=== PATIENT | male | born 1945 | race Caucasian/White ===

== ENCOUNTER → 2023-05-17 10:36 | Outpatient (REF) | payer OTHER, SELFPAY | LOC: WOUND 10:36 | PROVIDERS: ATTENDING PHYSICIAN Surgery; REFERRING PHYSICIAN Family Medicine | DX: L97.322 Non-pressure chronic ulcer of left ankle with fat layer exposed (principal); F17.210 Nicotine dependence, cigarettes, uncomplicated; I87.2 Venous insufficiency (chronic) (peripheral); I25.10 Atherosclerotic heart disease of native coronary artery without angina pectoris; G45.9 Transient cerebral ischemic attack, unspecified; J44.9 Chronic obstructive pulmonary disease, unspecified | CPT/HCPCS: 11042; 29581 ==

== ENCOUNTER → 2023-12-29 13:01 | Outpatient (REF) | payer OTHER, SELFPAY | LOC: HWRAD 13:01 | PROVIDERS: ATTENDING PHYSICIAN Internal Medicine Critical Care Medicine; FAMILY PHYSICIAN Family Medicine | DX: R93.89 Abnormal findings on diagnostic imaging of other specified body structures (principal) | CPT/HCPCS: 71250 ==

== ENCOUNTER → 2024-01-20 17:03 | Outpatient (REF) | payer OTHER, SELFPAY | LOC: HWRAD 17:03 | PROVIDERS: ATTENDING PHYSICIAN Family Medicine | DX: R07.82 Intercostal pain (principal); J44.9 Chronic obstructive pulmonary disease, unspecified; J42 Unspecified chronic bronchitis | CPT/HCPCS: 71046 ==

== ENCOUNTER → 2024-03-06 08:05 | Outpatient (REF) | payer OTHER, SELFPAY | LOC: RAD 08:05 | PROVIDERS: ATTENDING PHYSICIAN Surgery Vascular Surgery; FAMILY PHYSICIAN Family Medicine | DX: I71.43 Infrarenal abdominal aortic aneurysm, without rupture (principal); I77.9 Disorder of arteries and arterioles, unspecified | CPT/HCPCS: 76770; 93922; 93925 ==

== ENCOUNTER → 2024-03-15 10:33 | Outpatient (REF) | payer OTHER, SELFPAY ==
[2024-03-15 13:03] LABS: Blood Urea Nitrogen 24 mg/dl (9-20); Calcium 9.8 mg/dl (8.4-10.2); Carbon Dioxide 24 mmol/L (22-30); Chloride 96 mmol/L (98-107); Glucose 109 mg/dl (70-99); Potassium 4.7 mmol/L (3.5-5.1); Sodium 133 mmol/L (135-145); eGFR > 60.00
== END ==
LOC: RAD 10:33
PROVIDERS: ATTENDING PHYSICIAN Surgery Vascular Surgery; FAMILY PHYSICIAN Family Medicine; REFERRING PHYSICIAN Nurse Practitioner
DX: M54.6 Pain in thoracic spine (principal); I71.40 Abdominal aortic aneurysm, without rupture, unspecified
CPT/HCPCS: 36415; 72072; 80048

== ENCOUNTER → 2024-03-20 12:55 | Outpatient (REF) | payer OTHER, SELFPAY | LOC: RAD 12:55 | PROVIDERS: ATTENDING PHYSICIAN Surgery Vascular Surgery; FAMILY PHYSICIAN Family Medicine | DX: I71.40 Abdominal aortic aneurysm, without rupture, unspecified (principal) | CPT/HCPCS: 74174; Q9967 ==

== ENCOUNTER → 2024-04-30 13:02 | Outpatient (REF) | payer OTHER, SELFPAY ==
--- NOTE | 2024-04-30 13:45 | CARDSERVLU ---
Echocardiogram with Lumason completed after protocol screening completed. Allergies verified.
Patent IV site: ___Rt AC__
IV site flushed with 0.9% NaCl pre and post administration.
Diluted bolus method utilized to enhance visualization of ventricular naylor.
Total volume given: _4.0___ mL
Patient tolerated all procedures well without complications.
#20 mónica placed Left AC. Lumason given and INT d/c'd. dsg applied and pressure held. No bleeding noted.
== END ==
LOC: RCS 13:02
PROVIDERS: ATTENDING PHYSICIAN Internal Medicine Cardiovascular Disease; FAMILY PHYSICIAN Family Medicine
DX: Z01.810 Encounter for preprocedural cardiovascular examination (principal)
CPT/HCPCS: 93306; Q9950

== ENCOUNTER 2024-05-07 06:10 | Inpatient (IN) | payer OTHER, SELFPAY ==
[2024-05-02 09:22] VITALS: BMI 25.0
[2024-05-02 10:52] LABS: % Basophils 0.4 % (0-2); % Eosinophils 1.4 % (0-6); % Immature Granulocytes 1.1 % (0-0.5); % Lymphocytes 22.4 % (20.5-51.1); % Monocytes 6.5 % (1.7-9.3); % Neutrophils 68.2 % (42.2-75.2); Absolute Eosinophils 0.1 10^3/uL (0-0.7); Absolute Immature Granulocytes 0.1 10^3/uL (0-0.05); Absolute Lymphocytes 2.2 10^3/uL (1.2-3.4); Absolute Monocytes 0.6 10^3/uL (0.1-0.6); Absolute Neutrophils 6.7 10^3/uL (1.4-6.5); Hematocrit 45.5 % (39.0-52.0); Hemoglobin 15.3 g/dL (13.0-18.0); Mean Corp Hgb Conc. 33.6 g/dL (33.0-37.0); Mean Corpuscular Hgb 30.7 pg (27.0-31.0); Mean Corpuscular Volume 91.4 fL (80.0-94.0); Mean Platelet Volume 10.2 fL (7.4-10.4); Nucleated Red Blood Cells % 0 % (-); Platelet Count 147 10^3/uL (130-400); Red Blood Cell Count 4.98 10^6/uL (4.70-6.10); Red Cell Dist. Width 14.4 % (11.5-14.5); White Blood Cell Count 9.9 10^3/uL (4.8-10.8)
[2024-05-02 11:10] LABS: INR 1.02; PT 13.4 Sec (11.4-14.6)
[2024-05-02 11:11] LABS: APTT 31.6 Sec (23.4-35.0)
[2024-05-02 11:46] LABS: Blood Urea Nitrogen 22 mg/dl (9-20); Calcium 9.3 mg/dl (8.4-10.2); Carbon Dioxide 26 mmol/L (22-30); Chloride 101 mmol/L (98-107); Estimated Creatinine Clearance 59 ml/min; Glucose 109 mg/dl (70-99); Potassium 3.6 mmol/L (3.5-5.1); Sodium 137 mmol/L (135-145); eGFR > 60.00
[2024-05-07] VITALS (25 sets, daily range): BP systolic 102–163; BP diastolic 66–106; BMI 24.5
[2024-05-07] MEDS: PERIDEX 0.12% ORAL RINSE 15 ML PO (07:10)
[2024-05-07] MEDS: BACTROBAN NASAL 1 GRAM NASAL (07:10)
[2024-05-07] MEDS: NSS 500 IV (07:15)
--- NOTE | 2024-05-07 07:46 | W.SUR.PREOP ---
Pre-Operative Surgical Note
-
I have examined this patient prior to the performance of the scheduled procedure.
The patient's condition is unchanged from the time of the current History and
Physical and the patient is able to undergo the scheduled procedure.
[2024-05-07 08:56] LABS: ACT-LR - POC 295 Seconds (116-155)
[2024-05-07 09:52] LABS: ACT-LR - POC 269 Seconds (116-155)
[2024-05-07 10:00] LABS: Glucose - Point of Care 114 mg/dl (70-99)
--- NOTE | 2024-05-07 11:23 | CONS.URO ---
Consultation
-
Date/Time Consultation Performed: 05/07/24 1600
Performing Provider: Evan
Reason for Consultation: difficult Rodriguez placement with subsequent hematuria
Medical History
History of Present Illness
s/p FEVAR for AAA today; a Rodriguez placed pre-op 'was a difficult insertion . . . now blood-tinged'
09/[address] Singh
patient/ report no voiding bother pre-admission
Past Medical History
Past Medical History: Other (Cyst Of Liver. Pain Lower Back. Osteoporosis Unsp. Hyperlipidemia. High cholesterol. Colon polyps. Hypertension. Depression. Restless Leg. Pneumonia. Scoliosis.
Broken vertebrae. AAA. PD)
Past Surgical History: Other (Implanted pain management device 06/2017 turp back surgery GVM L1-L2 03/2021 Vertebroplasty 02/23/2024 cardiac ablation - Cecilio tejeda 2013)
Allergies/Home Medications
Allergies
Allergy/AdvReac Type Severity Reaction Status Date / Time
mold Allergy sinus Verified 05/07/24 07:07
congestion
Home Medications
�Medication �Instructions �Recorded �Confirmed �Type
atorvastatin 10 mg tablet 10 mg PO QPM High cholesterol 12/03/20 05/07/24 History
lisinopril 10 mg tablet 10 mg PO DAILY Blood pressure 12/03/20 05/07/24 History
omeprazole 20 mg capsule,delayed 20 mg PO DAILY Gastrointestinal 12/03/20 05/07/24 History
release issue
fluticasone fur. 100 mcg-umeclid 1 inh inhalation R DAILY 07/09/22 05/07/24 History
62.5 mcg-vilant 25 mcg Lung/breathing issues ##0
inhalat.powder (Trelegy Ellipta)
oxycodone-acetaminophen 10 mg-325 1 tab PO Q6HPRN PRN SEVERE PAIN 07/09/22 05/07/24 History
mg tablet
therapeutic multivitamin 1 tab PO DAILY Supplement ##0 07/09/22 05/07/24 History
albuterol sulfate 2.5 mg/3 mL 2.5 mg inhalation Q6H PRN SOB 09/20/22 05/07/24 History
(0.083 %) solution for nebulization
carbidopa ER 25 mg-levodopa 100 mg 1 tab PO DAILY Neurological 09/20/22 05/07/24 History
tablet,extended release Condition
carbidopa ER 25 mg-levodopa 100 mg 2 tab PO HS Neurological Condition 09/20/22 05/07/24 History
tablet,extended release
fluticasone propionate 50 2 spray intranasal DAILY Allergies 09/20/22 05/07/24 History
mcg/actuation nasal
spray,suspension
levalbuterol tartrate 45 1 puff inhalation R Q4HPRN PRN SOB 09/20/22 05/07/24 History
mcg/actuation aerosol inhaler
guaifenesin 600 mg tablet, 600 mg PO Q12 #30 tabs 09/24/22 05/07/24 Rx
extended release 12 hr (Mucinex)
Physical Exam
Vital Signs
Vital Signs
Temp Pulse Resp BP Pulse Ox
97.8 F 91 23 163/106 97
05/07/24 06:19 05/07/24 06:19 05/07/24 06:19 05/07/24 06:19 05/07/24 06:19
Physical Exam
adult male supine in bed
Genito-urinary: Rodriguez Catheter (punch-colored urine)
Assessment / Plan
-
Prostate enlargement s/p TUVP ~ 12 years ago --> difficulty Rodriguez implies some prostatic regrowth; hematuria is not unexpected
Rec: keep Rodriguez overnight
Data Reviewed
-
Old Records: Reviewed
--- NOTE | 2024-05-07 11:33 | CON.INTV ---
Consultation
Consultation Request
Date/Time Consultation Requested: 05/07/2024 - 1043
Date/Time Consultation Performed: 05/07/2024 - 1118
Requesting Provider: SHYANNE Ashton
Performing Provider: Pete Willingham MD
Reason for Consultation: post-op management
Medical History
-
Chief Complaint: Elective FEVAR
History of Present Illness:
78-year-old male active tobacco smoker with a past medical history of COPD, history of pneumonia, history of lung nodules, TOBY on CPAP, hyperlipidemia, hypertension, colonic polyps, RLS and chronic LBP who presents with elective FEVAR of known
infrarenal AAA. Patient known to vascular surgery with last office visit on 03/28/2024 Dr. Rodriguez. Discussion held and CT angiogram shows a juxtarenal abdominal aortic aneurysm and he is not a good candidate for open aortic aneurysm surgery.
Fenestrated stent graft repair was discussed and risks and benefits were also reviewed in detail. Patient has agreed to fenestrated stent graft, which he obtained today (05/07/2024). I saw the patient after he came to the ICU and he was in no acute
distress, with BP 119/75 on Cardene at 10mg/hr, heart rate 97, saturating 96% on facemask at 6 L/min. Patient still sleepy from anesthesia but is answering my questions appropriately. He denies shortness of breath, abdominal pain, chest pain.
PMHx: Chronic lower back pain, osteoporosis, hyperlipidemia, colonic polyps, hypertension, depression, restless leg syndrome, history of pneumonia, scoliosis, history of broken vertebrae, COPD, TOBY on CPAP, lung nodules tobacco use disorder
PSHx: Implanted pain management device (June 2017), TURP, back surgery, vertebroplasty
Past Medical History
Past Medical History: Other (Above as per HPI)
Past Surgical History: Other (Above as per HPI)
Social History
Tobacco: Smoker (0.5-1 PPD; was smoking 2 PPD until November 2020, and has a 90-[id number]-xfym history)
Drug: None
Family History
Family History: Cancer (Father: Leukemia) and Diabetes (Mother)
Allergies / Home Medications
Allergies
Allergy/AdvReac Type Severity Reaction Status Date / Time
mold Allergy sinus Verified 05/07/24 07:07
congestion
Home Medications
�Medication �Instructions �Recorded �Confirmed �Last Taken �Type
atorvastatin 10 mg tablet 10 mg PO QPM High cholesterol 12/03/20 05/07/24 05/06/24 17:00 History
lisinopril 10 mg tablet 10 mg PO DAILY Blood pressure 12/03/20 05/07/24 05/06/24 08:00 History
omeprazole 20 mg capsule,delayed 20 mg PO DAILY Gastrointestinal 12/03/20 05/07/24 05/06/24 08:00 History
release issue
fluticasone fur. 100 mcg-umeclid 1 inh inhalation R DAILY 07/09/22 05/07/24 05/06/24 08:00 History
62.5 mcg-vilant 25 mcg Lung/breathing issues ##0
inhalat.powder (Trelegy Ellipta)
oxycodone-acetaminophen 10 mg-325 1 tab PO Q6HPRN PRN SEVERE PAIN 07/09/22 05/07/24 05/06/24 12:00 History
mg tablet
therapeutic multivitamin 1 tab PO DAILY Supplement ##0 07/09/22 05/07/24 2 Weeks Ago History
~04/23/24
albuterol sulfate 2.5 mg/3 mL 2.5 mg inhalation Q6H PRN SOB 09/20/22 05/07/24 05/06/24 12:00 History
(0.083 %) solution for nebulization
carbidopa ER 25 mg-levodopa 100 mg 1 tab PO DAILY Neurological 09/20/22 05/07/24 05/06/24 07:00 History
tablet,extended release Condition
carbidopa ER 25 mg-levodopa 100 mg 2 tab PO HS Neurological Condition 09/20/22 05/07/24 05/05/24 20:00 History
tablet,extended release
fluticasone propionate 50 2 spray intranasal DAILY Allergies 09/20/22 05/07/24 2 Weeks Ago History
mcg/actuation nasal ~04/23/24
spray,suspension
levalbuterol tartrate 45 1 puff inhalation R Q4HPRN PRN SOB 09/20/22 05/07/24 05/06/24 20:00 History
mcg/actuation aerosol inhaler
guaifenesin 600 mg tablet, 600 mg PO Q12 #30 tabs 09/24/22 05/07/24 05/06/24 09:00 Rx
extended release 12 hr (Mucinex)
Review of Systems
-
History Source: Patient
All other systems: Negative unless noted
Vitals / Labs / Diagnostic Testing
Vital Signs
Temp Pulse Resp BP Pulse Ox
97.8 F 96 19 112/71 96
05/07/24 12:51 05/07/24 13:00 05/07/24 13:00 05/07/24 13:00 05/07/24 13:05
Lab Data
05/07/24 11:24
05/07/24 11:23
Laboratory Results
05/07/24
11:23
PT 15.2 H
INR 1.22
APTT 39.0 H
Diagnostic Testing:
Physical Exam
-
HEENT: Normocephalic and Anicteric
Cardiovascular: S1/S2 and Peripheral Edema (Negative)
Respiratory: Wheeze (Negative), Rhonchi (Negative) and Other (Coarse BS heard bilaterally (R>L))
GI: Soft, Non Distended, Non Tender and Normal Bowel Sounds
Neurology: Other (Sleepy but answering questions appropriately)
Skin: Warm and Dry
General: Respiratory Distress (Negative), Comfortable and Chills (Negative)
Assessment
-
Assessment: 78-year-old male active tobacco smoker with a past medical history of COPD, history of pneumonia, history of lung nodules, TOBY on CPAP, hyperlipidemia, hypertension, colonic polyps, RLS and chronic LBP who presents with elective FEVAR
of known infrarenal AAA. Patient known to vascular surgery with last office visit on 03/28/2024 Dr. Rodriguez. Discussion held and CT angiogram shows a juxtarenal abdominal aortic aneurysm and he is not a good candidate for open aortic aneurysm
surgery. Fenestrated stent graft repair was discussed and risks and benefits were also reviewed in detail. Patient has agreed to fenestrated stent graft, which he obtained today (05/07/2024). I saw the patient after he came to the ICU and he was
in no acute distress, with BP 119/75 on Cardene at 10mg/hr, heart rate 97, saturating 96% on facemask at 6 L/min. Patient still sleepy from anesthesia but is answering my questions appropriately. He denies shortness of breath, abdominal pain,
chest pain.
Chronic conditions [employer]AGHETTI [employer]: Chronic lower back pain, osteoporosis, hyperlipidemia, colonic polyps, hypertension, depression, restless leg syndrome, history of pneumonia, scoliosis, history of broken vertebrae, COPD, TOBY on CPAP, lung nodules tobacco
use disorder
Impression:
#Infrarenal abdominal aortic aneurysm without rupture s/p FEVAR (POD#0)
#Leukocytosis
#Thrombocytopenia (chronic with baseline ranging between 96�273 over the last 15-16 years)
#Tobacco Use Disorder
#COPD - severe severity per spirometry from 11/09/2023 (post-BD FEV1: 0.94L/39% predicted)
#Mild restrictive lung disease with post-bronchodilator FVC: 2.17 L/64% predicted
Plan:
Postoperative surgical intensive care unit monitoring
Supplemental oxygen as needed to keep SpO2 >88% and <96%
Wean O2 as tolerated to maintain goal SpO2 as above
prn nebulized bronchodilators
Incentive spirometry
Aspiration precautions
Neuro and vascular checks per protocol
Continue cardene gtt with goal MAP 70-100mmHg
Keep MAP>65
Replete electrolytes with K>4, Mg>2
Maintain euglycemia with goal BG 140-180
Vascular surgery following-correspondence and operative notes reviewed
Incentive spirometer encouraged - 10x per hour for at least 4 hours a day
DVT prophylaxis
Early nutrition
Early mobilization
Critical care statement: A total of 41 minutes of critical care time was provided for this patient today. This includes management of unstable vital signs, evaluation of the patient at bedside, reviewing the patient's pertinent medical records
including radiographs, microbiology, laboratory evaluations, and discussion with primary team, consultants, pharmacy, nutrition, physical therapy, case management, charge nurse, critical care nursing, and respiratory therapy.
[2024-05-07 11:47] LABS: Hematocrit 39.8 % (39.0-52.0); Hemoglobin 13.7 g/dL (13.0-18.0); Mean Corp Hgb Conc. 34.4 g/dL (33.0-37.0); Mean Corpuscular Hgb 31.4 pg (27.0-31.0); Mean Corpuscular Volume 91.1 fL (80.0-94.0); Mean Platelet Volume 9.8 fL (7.4-10.4); Platelet Count 113 10^3/uL (130-400); Red Blood Cell Count 4.37 10^6/uL (4.70-6.10); White Blood Cell Count 12.9 10^3/uL (4.8-10.8)
[2024-05-07 11:49] LABS: INR 1.22; PT 15.2 Sec (11.4-14.6)
[2024-05-07] MEDS: PLAVIX 300 MG PO (11:51)
[2024-05-07] MEDS: ASPIRIN 325 MG PO (11:51)
[2024-05-07 11:52] LABS: Blood Urea Nitrogen 20 mg/dl (9-20); Calcium 8.4 mg/dl (8.4-10.2); Carbon Dioxide 25 mmol/L (22-30); Chloride 106 mmol/L (98-107); Estimated Creatinine Clearance 59 ml/min; Glucose 159 mg/dl (70-99); Sodium 136 mmol/L (135-145); eGFR > 60.00
[2024-05-07] MEDS: CARDENE 200 IV ×2 (12:19→14:17)
[2024-05-07] MEDS: NSS 1000 IV (12:19)
--- NOTE | 2024-05-07 13:07 | PTCARENOTE ---
Addendum entered by Eva Mattson, MERCEDES 05/07/24 15:46:
@1307- bustamante draining bloody urine- unchanged from pacu
Original Note:
pt received from pacu- on 6L simple mask, nsr with bbb on monitor. left radial karlee zeroed and functioning- cardene infusing at 10mg for maintaining systolic 100-165. pt arousable, drowsy at times, answers questions appropriately. doppler pedal and
pt pulses, extremities cool to touch and duskey. bilateral groin sites jolly, c/d/i. left site slightly swollen confirmed with hand turner- bilateral sites both soft to touch. pt denies pain at this time. all safety precautions in place. educated pt and
on restrictions, verbalized understanding. call bolaños within reach.
[2024-05-07] MEDS: PROTONIX 40 MG PO (14:16)
[2024-05-07] MEDS: NICODERM TRANSDERMAL 21 MG TRANSDERM (14:16)
--- NOTE | 2024-05-07 14:16 | OR.RPT ---
Operative Report
Operative Report
Date of Operation: 05/07/2024
Pre Op Diagnosis: Large juxtarenal abdominal aortic aneurysm
Post Op Diagnosis: Large juxtarenal abdominal aortic aneurysm
Procedure:
1.) Percutaneous fenestrated aortic stent graft repair of juxtarenal abdominal aortic aneurysm:
Lesley P-2 -34-107, large fenestration for SMA, bilateral renal artery fenestrations
Lesley D-12 -28-76 distal main body
ZSLE 16-74 RIGHT iliac extension
ZSLE 16-90 LEFT iliac extension)
2.) Bilateral renal artery stenting for fenestrated stent graft repair (6 x 22 iCasts bilaterally, post-dilated proximal to 10 mm bilaterally)
3.) Ultrasound-guided percutaneous femoral access, bilateral
4.) ProGlide closure of bilateral femoral artery access
Surgeon: Samir Rodriguez III, MD
Import/Export Specialist: Seun James MD PGY-2
Anesthesia: General
Complications: None
History and Indications for Procedure: Large juxtarenal abdominal aortic aneurysm.
Procedure in Detail: Jl Conde was correctly identified and placed supine on the operating table. After adequate induction of anesthesia the abdomen, pelvis and bilateral groins were positioned, prepped and draped in the usual sterile fashion.
Preoperative antibiotics were administered. A timeout procedure was performed with the nursing and anesthesia staff confirming the patients identity as well as the nature and laterality of the procedure.
Under ultrasound guidance, bilateral femoral artery 5Fr sheath access was obtained using a micropuncture technique. The arteries were patent on ultrasound. Ultrasound images of the femoral arteries were saved to the medical record. A pre-close
technique was performed bilaterally with 2 offset Proglide closure devices. The sutures were secured and tucked under surgical towels for use at the end of the case. An 11 Tuvaluan sheath was then placed over the Bentson wire on the left and an 8 Fr
sheath was placed over Bentson wire on the right. The patient was systemically heparinized.
From the right femoral access an KMP catheter and Bentson wire were advanced to the proximal descending thoracic aorta. The wire was exchanged out through the catheter for a Lunderquist wire. From the left femoral access a Bentson wire was advanced
into the abdominal aorta. A marker pigtail catheter was then placed for angiographic purposes.
The fenestrated stent graft (Radhaen-P-2 -34-107) was opened and prepped on the back table. The stent was oriented in the proper position under radiographic guidance outside the body. While maintaining the proper orientation, the fenestrated main body
was advanced over the Lunderquist wire in the right femoral access under radiographic guidance and placed in the approximate position relative. An aortogram was performed and identified the origins of the renal arteries bilaterally. These were
marked on the screen. The Zfen main body was carefully unsheathed to the distal end of the stent while maintaining proper positioning with respect to the renal fenestration markers bilaterally.
From the left femoral access a Glidewire and KMP catheter were then used to select the main body of the fenestrated stent graft. The wire was then exchanged out for a Lunderquist wire. An 18 Tuvaluan dry seal sheath was then carefully advanced into
the fenestrated main body. Using a Van Vira 4 catheter and a glidewire the right renal artery was accessed. The glide wire was exchanged out for a Carrington wire. We performed an arteriogram to confirm proper positioning in the renal artery. A 6 Fr
Jerson sheath was advanced through the right renal fenestration and into the chilkat renal artery. A 6 x 22 iCast was then advanced over the wire and placed across the fenestration still inside the sheath.
In order to access the left renal artery through the fenestration we had to use a TourGuide steerable sheath. The TourGuide sheath was brought into position and manipulated properly towards the left renal fenestration. Then, using a Quickcross
catheter and a glide wire the left renal artery was accessed. The glide wire was exchanged out for a Carrington wire. We performed an arteriogram to confirm proper positioning in the renal artery. A 6 x 22 iCast was then advanced over the wire and placed
across the fenestration still inside the sheath.
Following successful cannulation of the renal artery fenestrations I completed the deployment of the fenestrated main body with release of the diameter reducing wires and release of the top cap. The top cap was then carefully recaptured under
radiographic guidance and the delivery system carefully removed over the Lunderquist wire.
A Coda balloon was then inserted on the right and the proximal seal zones of the Zfen main body were profiled with the renal artery sheaths in position. The Coda was then removed over the wire.
Deployment of the iCast stents across the renal fenestrations were completed one at a time as follows: The renal fenestration markers on each side were 'closed' by adjusting the C-arm obliquity. One at a time the sheaths were then retracted to fully
expose the iCast stent. The stent was properly positioned across the fenestration under magnification views and deployed by inflating the balloon to nominal pressure. The sheath was re-advanced into the iCast to 'swallow' the balloon as it was
deflated. A 10 x 2 angioplasty balloon was then positioned in the proximal portion of the iCast. The sheath was retracted and the balloon inflated while maintaining gentle forward pressure to post-dilate the proximal end of the iCast. The sheath was
once again re-advanced into the stent by swallowing the balloon as it deflated. The sheaths were each left in place inside the iCasts while the distal main body was introduced.
The distal main body (Zfen-D-12 -28-76) was prepped on the back table and brought to the field. The device was oriented outside the body under radiographic guidance. Over the Lunderquist wire on the right the distal main body was introduced
carefully under radiographic guidance and positioned properly. The renal artery sheaths and wires bilaterally were then removed one at a time. The distal main body was then deployed down to the contralateral gate.
From the left femoral sheath the contralateral gate was successfully cannulated using a KMP catheter and a glide wire. I confirmed proper position within the gate and main body by advancing a pigtail catheter to the constrained proximal portion of
the distal main body and maintaining forward pressure on the catheter while the constraining mechanism was released. After confirming the gate cannulation I advanced the catheter and wire into the proximal descending thoracic aorta and then
exchanged out for a Lunderquist. A marker pigtail catheter was placed over the Lunderquist and a retrograde sheath arteriogram was performed. I measured the length for the iliac extension and the iliac bifurcation was clearly marked. The pigtail was
removed and over the Lunderquist wire the contralateral limb extension (ZSLE 16-90) was advanced into the proper position with adequate overlap and preservation of the iliac bifurcation. The stent was deployed without difficulty.
I then completed the deployment of the distal main body. The delivery system was carefully removed over the wire under radiographic guidance. A retrograde sheath arteriogram was performed on the ipsilateral side. Over the Lunderquist wire the
ipsilateral limb extension was placed (ZSLE 16-74). Proper overlap was obtained and the stent was deployed without difficulty. The delivery system was then removed over the wire.
A Coda balloon was then advanced from the left. The overlap between the fenestrated main body and the distal main body was profiled with the Coda. The left iliac limb was also profiled including the overlap and the distal seal zones bilaterally.
We had some difficulty advancing the Coda balloon through the right iliac limb and therefore we profiled the right iliac limb, all areas of overlap and the distal seal zone with a 14 mm x 4 cm angioplasty balloon.
A pigtail catheter was placed once again. Stiff wires were removed. A completion aortogram demonstrated an excellent technical result. There was brisk flow through the aortic stent and iliac limbs. The renal arteries/stents were widely patent
bilaterally. The superior mesenteric artery filled briskly and was widely patent. The aneurysm appeared to be excluded and no endoleak was identified. The iliac bifurcations were preserved bilaterally.
The Proglide sutures were secured bilaterally after removing the sheaths and wires. Protamine was administered. Additional pressure was applied to the puncture sites bilaterally for 10 minutes. Hemostasis was achieved bilaterally.
Sterile dressings were applied.
The patient tolerated the procedure well and was taken to the PACU in stable condition.
Attestation: I was present and responsible for the entire case.
Signed:
Samir Rodriguez III, MD
[facility]
[phone] (cell)
[2024-05-07] MEDS: HEPARIN 5000 UNITS SC ×2 (15:39→23:53)
[2024-05-07] MEDS: MORPHINE SULFATE 2 MG IV ×2 (15:39→20:49)
--- NOTE | 2024-05-07 16:32 | PTCARENOTE ---
assessment unchanged. pt more awake, morphine given for pain. oral care provided, pt noted with tachypnea- denies feeling sob, states 'this is my usual work of breathing' sats 94% on 2LNC. respiratory to give breathing treatment. pt able to
reposition self. all safety precautions in place, remains at bedside.
[2024-05-07] MEDS: XOPENEX HFA 45 MCG INHALER 2 PUFF INH (16:52)
[2024-05-07] MEDS: LIPITOR 10 MG PO (17:26)
[2024-05-07] MEDS: ROXICODONE 5 MG PO (18:46)
--- NOTE | 2024-05-07 19:03 | PTCARENOTE ---
Addendum entered by Eva Mattson RN 05/07/24 19:07:
bed alarm on for safety.
Original Note:
assessment unchanged- reeducated about diet, plan of care, and restrictions. remains at the bedside. assisted with turning and repositioning. remains with doppler pedal and pt pulses. nsr with bbb on monitor, remains on nasal cannula.
--- NOTE | 2024-05-07 19:54 | W.IMMPOSTOP ---
Surgical Immed Post Op Note
-
Primary Surgeon: Samir Rodriguez III, MD
Assisting Surgeon: Seun James MD
Pre-op Diagnosis: Infrarenal AAA
Post-op Diagnosis: Infrarenal AAA
Procedure Performed: Fenestrated EVAR
Anesthesia Type: General
Specimen / Cultures: NA
Estimated Blood Loss: 75cc
Complications: None
Operative Findings:
Fenestrated EVAR placed with bilateral renal stents & iliac limbs placed without issue.
[2024-05-07] MEDS: SINEMET CR 25-100 (EXTENDED RELEASE) 2 TABLET PO (20:48)
[2024-05-07] MEDS: CYMBALTA DELAYED RELEASE 60 MG PO (20:49)
--- NOTE | 2024-05-07 23:14 | PTCARENOTE ---
Assumed care of patient. Dual RN neurovascular checks with off going RN. Left groin is slightly more edematous than right groin. No hematoma noted. neuro checks and neurovascular assessment as documented. Pt's AAOx3 and able to make his needs known.
Rt bundle on the monitor. Pt's with left arterial line. Coarse breath sounds. SpO2 at 94% on 2L/O2. Rodriguez catheter is draining bloody urine. Safety measures maintained. Call bolaños and personal belongings are within reach.
[2024-05-08] VITALS (16 sets, daily range): BP systolic 106–138; BP diastolic 66–89; PULSE 95; BMI 24.5
--- NOTE | 2024-05-08 00:41 | PTCARENOTE ---
Patient reassessed. Assessment unchanged from the jeremi.
[2024-05-08 03:28] LABS: Hematocrit 33.4 % (39.0-52.0); Hemoglobin 11.7 g/dL (13.0-18.0); Mean Corpuscular Hgb 30.6 pg (27.0-31.0); Mean Corpuscular Volume 87.4 fL (80.0-94.0); Mean Platelet Volume 10.3 fL (7.4-10.4); Platelet Count 108 10^3/uL (130-400); Red Blood Cell Count 3.82 10^6/uL (4.70-6.10); Red Cell Dist. Width 13.9 % (11.5-14.5); White Blood Cell Count 11.3 10^3/uL (4.8-10.8)
[2024-05-08] MEDS: NSS 1000 IV (03:28)
--- NOTE | 2024-05-08 03:40 | PTCARENOTE ---
0300:Patient's UOP is 50 mL since 0000. Patient bladder scanned for 0 ml. UOP remains bloody. Pancho Watkins CRNP made aware. Order for NS at 80ml/hr.
[2024-05-08 03:41] LABS: INR 1.17; PT 14.8 Sec (11.4-14.6)
[2024-05-08 03:42] LABS: APTT 38.7 Sec (23.4-35.0)
[2024-05-08 03:58] LABS: Blood Urea Nitrogen 20 mg/dl (9-20); Calcium 8.4 mg/dl (8.4-10.2); Carbon Dioxide 24 mmol/L (22-30); Chloride 105 mmol/L (98-107); Estimated Creatinine Clearance 68 ml/min; Glucose 128 mg/dl (70-99); Potassium 3.7 mmol/L (3.5-5.1); Sodium 133 mmol/L (135-145); eGFR > 60.00
--- NOTE | 2024-05-08 04:23 | PTCARENOTE ---
Patient reassessed. Remains AAOx3 and able to make his needs known. Patient cleansed with CHG wipes. Linens changed. Sacral foam remains in place. All needs are met at this time. Call bolaños and personal belonging are within reach.
--- NOTE | 2024-05-08 07:42 | W.PN.VS ---
Addendum entered and electronically signed by Samir Rodriguez III, MD 05/08/24 09:46:
This patient was seen and examined with SHYANNE Ashton. I agree with the history and physical exam as well as the assessment and plan. I have the following additions:
Overall looks well
Abdomen soft and nontender
Groin puncture site soft bilaterally with no hematomas identified
Follow-up with urology regarding hematuria
Continue dual antiplatelet therapy
Signed:
Samir Rodriguez III, MD
[facility] V[facility] Surgery
[phone] (cell)
Original Note:
Today's Communication / Plan
-
Seen and assessed with Dr. Rodriguez
Assessment/Plan
-
POD 1 Percutaneous fenestrated aortic stent graft repair of juxtarenal abdominal aortic aneurysm:
Zfen P-2 -34-107, large fenestration for SMA, bilateral renal artery fenestrations
Zfen D-12 -28-76 distal main body
ZSLE 16-74 RIGHT iliac extension
ZSLE 16-90 LEFT iliac extension)
Bilateral renal artery stenting for fenestrated stent graft repair (6 x 22 iCasts bilaterally, post-dilated proximal to 10 mm bilaterally)
ProGlide closure of bilateral femoral artery access
Plan:
-DC A-line
-DC IV fluids
-Out of bed to chair/ambulate
-Increase diet
-Appreciate urology, Jennifer discontinued this a.m.
Subjective Data
-
Date of Service: May 08, 2024
Objective Data
-
Vital Signs
Temp Pulse Resp BP Pulse Ox
98.2 F 86 26 123/82 98
05/08/24 03:32 05/08/24 06:00 05/08/24 06:00 05/08/24 04:00 05/08/24 06:00
Intake and Output
05/07/24 05/08/24 05/09/24
06:59 06:59 06:59
Intake Total 1365 / 1365
Output Total 945 / 945
Balance 420 / 420
Intake:
Oral fluids 540 / 540
Amount of oral supplement(s) 200 / 200
consumed
IV fluids (Total) 625 / 625
Cardene 125 / 125
NSS 500 / 500
Output:
Urine, Rodriguez 945 / 945
Lab Results
05/08/24 03:13
05/08/24 03:13
Calcium 8.4 mg/dl (8.4-10.2) 05/08/24 03:13
Physical Exam
-
AAOx3
No tachypnea
No tachycardia
Abdomen soft
Bilateral groin sites clean, soft, intact. No swelling or drainage
Bilateral feet warm, palpable PT pulses
[2024-05-08] MEDS: NICODERM TRANSDERMAL 21 MG TRANSDERM (08:06)
[2024-05-08] MEDS: PROTONIX 40 MG PO (08:07)
[2024-05-08] MEDS: LOW STRENGTH ASPIRIN 81 MG PO (08:07)
[2024-05-08] MEDS: CYMBALTA DELAYED RELEASE 30 MG PO (08:08)
[2024-05-08] MEDS: HEPARIN 5000 UNITS SC ×2 (08:08→16:16)
[2024-05-08] MEDS: ZESTRIL 10 MG PO (08:08)
[2024-05-08] MEDS: PLAVIX 75 MG PO (08:08)
[2024-05-08] MEDS: THERAGRAN 1 TABLET PO (08:08)
[2024-05-08] MEDS: SINEMET CR 25-100 (EXTENDED RELEASE) 1 TABLET PO (08:08)
[2024-05-08] MEDS: PAXIL 10 MG PO (08:08)
[2024-05-08] MEDS: ROXICODONE 5 MG PO ×3 (08:24→19:37)
[2024-05-08] MEDS: SPIRIVA RESPIMAT 2.5 MCG 2 PUFF INH (08:27)
[2024-05-08] MEDS: SYMBICORT 80/4.5 MCG INHALER 2 PUFF INH ×2 (08:27→20:31)
--- NOTE | 2024-05-08 08:44 | W.PN.INTV ---
Today's Communication / Plan
Recommendations
Up OOB as tolerated
Pain control
Monitor hematuria
PT/OT
Symbicort/Spiriva and resume Trelegy upon discharge
Security Risk Analyst/Pulmonary service will follow along while patient remains in the ICU. Given he continues to have hematuria, I advised the patient to stay hospitalized until this improves or resolves as going home with continuing hematuria while on DAPT
with ASA + plavix is very risky, as he is may experience acute urinary retention from a blood clot or worsening clinical Sx of acute anemia.
Once he is discharged or downgraded then we will sign off. Outpatient follow-up will be arranged with Dr. Concepcion (last office visit on 03/07/2024).
Assessment
-
Assessment: 78-year-old male active tobacco smoker with a past medical history of COPD, history of pneumonia, history of lung nodules, TOBY on CPAP, hyperlipidemia, hypertension, colonic polyps, RLS and chronic LBP who presents with elective FEVAR
of known infrarenal AAA. Patient known to vascular surgery with last office visit on 03/28/2024 Dr. Bustamante. Discussion held and CT angiogram shows a juxtarenal abdominal aortic aneurysm and he is not a good candidate for open aortic aneurysm
surgery. Fenestrated stent graft repair was discussed and risks and benefits were also reviewed in detail. Patient has agreed to fenestrated stent graft, which he obtained today (05/07/2024). I saw the patient after he came to the ICU and he was
in no acute distress, with BP 119/75 on Cardene at 10mg/hr, heart rate 97, saturating 96% on facemask at 6 L/min. Patient still sleepy from anesthesia but is answering my questions appropriately. He denies shortness of breath, abdominal pain,
chest pain.
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
use disorder
Impression:
#Infrarenal abdominal aortic aneurysm without rupture s/p FEVAR (POD#1)
#Leukocytosis - improving
#Hematuria, likely traumatic - improving (bustamante removed)
#Thrombocytopenia (chronic with baseline ranging between 96�273 over the last 15-16 years)
#Tobacco Use Disorder
#COPD - severe severity per spirometry from 11/09/2023 (post-BD FEV1: 0.94L/39% predicted)
#Mild restrictive lung disease with post-bronchodilator FVC: 2.17 L/64% predicted
Plan:
Postoperative surgical intensive care unit monitoring
Supplemental oxygen as needed to keep SpO2 >88% and <96%
Wean O2 as tolerated to maintain goal SpO2 as above
prn nebulized bronchodilators
Continue Symbicort + Spiriva while inpatient and resume Trelegy upon discharge
Aspiration precautions
Pain control
Neuro and vascular checks per protocol
Off Cardene drip; maintain MAP >65
Keep MAP>65
Replete electrolytes with K>4, Mg>2
Maintain euglycemia with goal BG 140-180
Vascular surgery following-correspondence and operative notes reviewed
Incentive spirometer encouraged - 10x per hour for at least 4 hours a day
PT/OT
DVT prophylaxis
Early nutrition
Early mobilization
Security Risk Analyst/Pulmonary service will follow along while patient remains in the ICU. Given he continues to have hematuria, I advised the patient to stay hospitalized until this improves or resolves as going home with continuing hematuria while on DAPT
with ASA + plavix is very risky, as he is may experience acute urinary retention from a blood clot or worsening clinical Sx of acute anemia.
Once he is discharged or downgraded then we will sign off. Outpatient follow-up will be arranged with Dr. Concepcion (last office visit on 03/07/2024).
Total time spent today was 55 minutes for this encounter. Time includes reviewing laboratory test/imaging results, reviewing pertinent medical records, obtaining and reviewing medical history, performing an appropriate exam, ordering medications,
tests and procedures. Time also includes documentation of this encounter, coordinating patient care and communicating with other healthcare professionals. Total time does not include separately billed tests performed on this date of service.
Subjective Dataa
Subjective Data
Date of Service:
Date of Service: May 08, 2024
Chief Complaint: Security Risk Analyst Follow Up
Subjective:
Patient seen and evaluated today at bedside. Still having hematuria. Bustamante catheter removed today. Able to urinate well without any retention. Current vitals show BP 106/71, heart rate 83 and saturating 91% on room air. at bedside and
answered all of her questions. Patient otherwise breathing well, denies shortness of breath, chest pain, abdominal pain, fevers or chills.
Review of Systems
General: Other (Negative unless mentioned above)
Objective Data
Data Reviewed
Vital Signs / I&O / Oxygen:
Vital Signs
Temp Pulse Resp BP Pulse Ox
98.0 F 103 24 135/85 97
05/08/24 08:22 05/08/24 08:30 05/08/24 08:30 05/08/24 08:08 05/08/24 08:30
Intake and Output
05/07/24 05/08/24 05/09/24
06:59 06:59 06:59
Intake Total 1365 / 1365
Output Total 945 / 945
Balance 420 / 420
SaO2 97
Nasal Cannula flow liters per 2
minute
Physical Exam
General: Respiratory Distress (Negative) and Comfortable
HEENT: Normocephalic and Anicteric
Cardiovascular: S1-S2 and Peripheral Edema (Negative)
Respiratory: Wheeze (Negative), Crackles (Negative), Rhonchi (Negative) and Non-Labored Respirations
GI: Soft, Non Distended, Non Tender and Normal Bowel Sounds
Neurology: AO x 3 and Tremors (Negative)
Skin: Warm, Dry and Jaundice (Negative)
Labs/Micro/Reports
Lab Data
05/08/24 03:13
05/08/24 03:13
Laboratory Results
05/07/24 05/08/24
11: 03:13
PT 15.2 H 14.8 H
INR 1.22 1.17
APTT 39.0 H 38.7 H
--- NOTE | 2024-05-08 09:44 | W.PN.URO.CBU ---
Today's Communication / Plan
-
voiding trial in progress
Assessment / Plan
-
Prostate enlargement s/p TUVP ~ 12 years ago --> difficulty Rodriguez implies some prostatic regrowth; hematuria is not unexpected
Diagnosis
-
Date of Service: May 08, 2024
-
Patient Diagnosis:
Prostate enlargement s/p TUVP ~ 12 years ago --> difficulty Rodriguez implies some prostatic regrowth; hematuria is not unexpected
Subjective
-
Rodriguez removed
Objective
-
Vital Signs
Temp Pulse Resp BP Pulse Ox
98.0 F 103 24 135/85 97
05/08/24 08:22 05/08/24 08:30 05/08/24 08:30 05/08/24 08:08 05/08/24 08:30
Intake and Output
05/07/24 05/08/24 05/09/24
06:59 06:59 06:59
Intake Total 1365 / 1365
Output Total 945 / 945
Balance 420 / 420
Intake:
Oral fluids 540 / 540
Amount of oral supplement(s) 200 / 200
consumed
IV fluids (Total) 625 / 625
Cardene 125 / 125
NSS 500 / 500
Output:
Urine, Rodriguez 945 / 945
Laboratory Results
05/08/24 03:13
05/08/24 03:13
Physical Exam
-
General - well developed, well nourished, no acute distress
Chest - clear bilaterally
Abdomen - soft, non-tender, positive bowel sounds, no CVAT, no incisional pain or distention
Genitalia - normal
Rectal - normal
Skin - warm & dry with no rash
Neuro - AOx3, no motor deficits
Extremities - no clubbing, no cyanosis, no edema
Incision - clean, dry
Dressing - clean, dry, intact
--- NOTE | 2024-05-08 11:44 | PTCARENOTE ---
pt awake and oriented, NSR on monitor , pt seen by vascular surgery this am , karlee PADILLA , oob in chair without difficulty , ambulated to BR with walker , pt is SOB at rest sats on 2L 96% pt wears 02 at home his sat on room air is 90-92% , he states
he does not always use 02 at home , roxi groin site intact with surgical adhesive , lower ext pulses with Doppler , pt is voiding since Rodriguez cath removal this am , blood tinged urine pt has urgency and frequency with urination, he states this is
nothing new for him , at bedside
--- NOTE | 2024-05-08 12:22 | CM ---
CM following re: discharge planning.
Reviewed pt's chart, met with pt and pt's spouse at bedside.
Pt is an 78 year old male, admitted with primary dx of POD 1 Percutaneous fenestrated aortic stent graft repair of juxtarenal abdominal aortic aneurysm.
Pt reports he lives with spouse in a 2SH, 1 step to enter, has 2 supportive sons. 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 No DME, VN or SNF history. Pt reports he already has a script for outpatient PT/OT and he will receive outpatient
therapy in [facility].
PCP: Facundo Carreon
Pharmacy: [facility].
D/C plan: home with already set up outpatient PT and OT. Spouse to transport at discharge.
CM will follow with discharge plan updates as hospitalization progresses
--- NOTE | 2024-05-08 14:19 | PN.CDI ---
CDI
- -
CDI:
Physician Documentation Request
Admit Date: 05/07/24 06:10
Dear Tierra Patino,
H&P office visit note states patient was seen for Infrarenal abdominal aortic aneurysm without rupture.
OR report states Large juxtarenal abdominal aortic aneurysm.
Please clarify the type of aortic aneurysm:
Juxtarenal
Infrarenal
Other
Use of terms such as suspected, likely, concern for, or probable (associated with a specific diagnosis that is being evaluated, monitored, or treated as if it exists) are acceptable and can be coded in the inpatient setting, when documented at the
time of discharge.
Thank you,
Jyoti Og RN, BSN
CDI Specialist
tiger text
Please use your independent medical judgment in providing your response.
--- NOTE | 2024-05-08 14:28 | W.PN.UPDATE ---
Update Note
Progress Note Update
CDI:
Physician Documentation Request
Admit Date: 05/07/24 06:10
H&P office visit note states patient was seen for Infrarenal abdominal aortic aneurysm without rupture.
OR report states Large juxtarenal abdominal aortic aneurysm.
Please clarify the type of aortic aneurysm:
Juxtarenal
--- NOTE | 2024-05-08 17:47 | PTCARENOTE ---
pt continues with blood tinged urine , vascular PA notified , pt ambulating hallway with physical therapy
[2024-05-08] MEDS: LIPITOR 10 MG PO (18:07)
--- NOTE | 2024-05-08 19:15 | PTCARENOTE ---
Received pt via handoff at bedside, pt requested for me retrieve his nasal spray from his bag from home where I found a prescription bottle of oxycodone (10mg 52 pills). Also in his bed was a dropper vial called 'Dream' which contained THC. We
confiscated the bottle of oxycodone and THC and brought it down to pharmacy. Pt was made aware of this and that it would be returned to him upon discharge. Mario made aware of situation.
[2024-05-08] MEDS: MORPHINE SULFATE 2 MG IV (20:59)
[2024-05-08] MEDS: CYMBALTA DELAYED RELEASE PO (22:11)
[2024-05-08] MEDS: SINEMET CR 25-100 (EXTENDED RELEASE) PO (22:11)
[2024-05-09] VITALS (14 sets, daily range): BP systolic 124–174; BP diastolic 80–122; BMI 24.6
[2024-05-09] MEDS: MORPHINE SULFATE 2 MG IV (00:17)
--- NOTE | 2024-05-09 00:29 | PTCARENOTE ---
Patient reassessed, prn pain medication given for lower abdomen pain around incision sites otherwise assessment unchanged, see flowsheet.
[2024-05-09] MEDS: HEPARIN SC (01:27)
[2024-05-09] MEDS: ROXICODONE 5 MG PO ×3 (03:09→19:07)
[2024-05-09 03:40] LABS: Hematocrit 31.3 % (39.0-52.0); Hemoglobin 10.9 g/dL (13.0-18.0); Mean Corp Hgb Conc. 34.8 g/dL (33.0-37.0); Mean Corpuscular Hgb 30.9 pg (27.0-31.0); Mean Corpuscular Volume 88.7 fL (80.0-94.0); Red Blood Cell Count 3.53 10^6/uL (4.70-6.10); Red Cell Dist. Width 14.2 % (11.5-14.5); White Blood Cell Count 9.2 10^3/uL (4.8-10.8)
[2024-05-09 03:50] LABS: Blood Urea Nitrogen 17 mg/dl (9-20); Calcium 7.9 mg/dl (8.4-10.2); Carbon Dioxide 26 mmol/L (22-30); Chloride 106 mmol/L (98-107); Estimated Creatinine Clearance 68 ml/min; Glucose 104 mg/dl (70-99); Potassium 3.1 mmol/L (3.5-5.1); Sodium 135 mmol/L (135-145); eGFR > 60.00
[2024-05-09 04:17] LABS: Mean Platelet Volume 10.6 fL (7.4-10.4); Platelet Count 89 10^3/uL (130-400)
[2024-05-09] MEDS: KCL 270 MEQ IV (04:55)
--- NOTE | 2024-05-09 07:15 | PTCARENOTE ---
received patient from loom doffer. patient AAOx3, complaining of stomach pain, also complaining of back pain. 5:10. Patient is on room air, 96% with coarse breathsounds, tachypneic, increased work of breathing. Patient states this is his 'normal
breathing' he does smoke and have COPD. He is sinus tach on monitor. Pulses are unchanged from prior shift, doppler pulses on LE. Bilateral groins are ecchymotic, left>right. right groin has soft bulge, patient states has known inguinal hernia.
Patient is eating/drinking, will hold until results of CTscan. abdomen is distended and tender to palpation, patient is passing flatus. Urinating in urinal, has been tea colored, now julia. bilateral AC INTs.
[2024-05-09] MEDS: SPIRIVA RESPIMAT 2.5 MCG 2 PUFF INH (07:47)
[2024-05-09] MEDS: SYMBICORT 80/4.5 MCG INHALER 2 PUFF INH ×2 (07:47→18:16)
--- NOTE | 2024-05-09 08:00 | PTCARENOTE ---
Patient complaining of abdominal pain this morning. Vascular team at bedside, ordered STAT CT scan.
[2024-05-09] MEDS: THERAGRAN 1 TABLET PO (08:11)
[2024-05-09] MEDS: PLAVIX 75 MG PO (08:11)
[2024-05-09] MEDS: PROTONIX 40 MG PO (08:11)
[2024-05-09] MEDS: SINEMET CR 25-100 (EXTENDED RELEASE) 1 TABLET PO (08:11)
[2024-05-09] MEDS: CYMBALTA DELAYED RELEASE 30 MG PO (08:11)
[2024-05-09] MEDS: ZESTRIL 10 MG PO (08:11)
[2024-05-09] MEDS: LOW STRENGTH ASPIRIN 81 MG PO (08:13)
[2024-05-09] MEDS: PAXIL 10 MG PO (08:13)
[2024-05-09] MEDS: NICODERM TRANSDERMAL 21 MG TRANSDERM (08:13)
[2024-05-09] MEDS: HEPARIN 5000 UNITS SC ×2 (08:13→15:45)
--- NOTE | 2024-05-09 08:43 | W.PN.VS ---
Today's Communication / Plan
-
Patient seen and assessed with Dr. Rodriguez
Assessment/Plan
-
POD2 Percutaneous fenestrated aortic stent graft repair of juxtarenal abdominal aortic aneurysm:
Lesley P-2 -34-107, large fenestration for SMA, bilateral renal artery fenestrations
Lesley D-12 -28-76 distal main body
ZSLE 16-74 RIGHT iliac extension
ZSLE 16-90 LEFT iliac extension)
Bilateral renal artery stenting for fenestrated stent graft repair (6 x 22 iCasts bilaterally, post-dilated proximal to 10 mm bilaterally)
ProGlide closure of bilateral femoral artery access
Plan:
-CTA abdomen/pelvis this morning
-Appreciate urology, continuing to monitor urine color
Subjective Data
-
Date of Service: May 09, 2024
Patient seen at bedside this a.m. with Dr. Rodriguez. Patient complaining of right and left lower quadrant pain, tender to palpation, soft. Patient endorses urine is tea colored this a.m.
Objective Data
-
Vital Signs
Temp Pulse Resp BP Pulse Ox
97.9 F 102 23 146/95 93
05/09/24 07:55 05/09/24 08:11 05/09/24 07:50 05/09/24 08:11 05/09/24 07:50
Intake and Output
05/08/24 05/09/24 05/10/24
06:59 06:59 06:59
Intake Total 1365 / 1365 500 / 500
Output Total 945 / 945 1020 / 1020
Balance 420 / 420 -520 / -520
Intake:
Oral fluids 540 / 540 500 / 500
Amount of oral supplement(s) 200 / 200
consumed
IV fluids (Total) 625 / 625
Cardene 125 / 125
NSS 500 / 500
Output:
Urine, Rodriguez 945 / 945
Urine, Voided 1020 / 1020
Lab Results
05/09/24 03:20
05/09/24 03:20
Calcium 7.9 mg/dl (8.4-10.2) L 05/09/24 03:20
Physical Exam
-
AAOx3
No tachypnea
No tachycardia
Abdomen soft, tender at bilateral lower quadrants
Bilateral groin sites clean, soft, intact. No swelling or drainage
Bilateral feet warm, palpable PT pulses
--- NOTE | 2024-05-09 08:53 | W.PN.INTV ---
Today's Communication / Plan
Recommendations
Up OOB as tolerated
Pain control
Monitor hematuria
PT/OT
Symbicort/Spiriva and resume Trelegy upon discharge
Start Mucinex and flutter valve with prn Tessalon Perles to help with the cough
Layboy Tender/Pulmonary service will follow along while patient remains in the ICU. Once he is discharged or downgraded then we will sign off. Outpatient follow-up will be arranged with Dr. Concepcion (last office visit on 03/07/2024).
Assessment
-
Assessment: 78-year-old male active tobacco smoker with a past medical history of COPD, history of pneumonia, history of lung nodules, TOBY on CPAP, hyperlipidemia, hypertension, colonic polyps, RLS and chronic LBP who presents with elective FEVAR
of known infrarenal AAA. Patient known to vascular surgery with last office visit on 03/28/2024 Dr. Rodriguez. Discussion held and CT angiogram shows a juxtarenal abdominal aortic aneurysm and he is not a good candidate for open aortic aneurysm
surgery. Fenestrated stent graft repair was discussed and risks and benefits were also reviewed in detail. Patient has agreed to fenestrated stent graft, which he obtained today (05/07/2024). I saw the patient after he came to the ICU and he was
in no acute distress, with BP 119/75 on Cardene at 10mg/hr, heart rate 97, saturating 96% on facemask at 6 L/min. Patient still sleepy from anesthesia but is answering my questions appropriately. He denies shortness of breath, abdominal pain,
chest pain.
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
use disorder
Impression:
#Infrarenal abdominal aortic aneurysm without rupture s/p FEVAR (POD#2)
#Abdominal pain mainly in RLQ without peritoneal symptoms
#Leukocytosis - resolved
#Hematuria, likely traumatic - resolved
#Thrombocytopenia - acute on chronic (baseline ranging between 96�273 over the last 15-16 years)
#Tobacco Use Disorder
#COPD - severe severity per spirometry from 11/09/2023 (post-BD FEV1: 0.94L/39% predicted)
#Mild restrictive lung disease with post-bronchodilator FVC: 2.17 L/64% predicted
Plan:
Postoperative surgical intensive care unit monitoring
Supplemental oxygen as needed to keep SpO2 >88% and <96%
Wean O2 as tolerated to maintain goal SpO2 as above
prn nebulized bronchodilators
Continue Symbicort + Spiriva while inpatient and resume Trelegy upon discharge
Start Mucinex to help his cough and give flutter valve
Aspiration precautions
Pain control
Neuro and vascular checks per protocol
Remains off Cardene drip; maintain MAP >65
Replete electrolytes with K>4, Mg>2
Maintain euglycemia with goal BG 140-180
Vascular surgery following-correspondence and operative notes reviewed
Incentive spirometer encouraged - 10x per hour for at least 4 hours a day
PT/OT
DVT prophylaxis
Early nutrition
Early mobilization
Layboy Tender/Pulmonary service will follow along while patient remains in the ICU. Once he is discharged or downgraded then we will sign off. Outpatient follow-up will be arranged with Dr. Concepcion (last office visit on 03/07/2024).
Total time spent today was 35 minutes for this encounter. Time includes reviewing laboratory test/imaging results, reviewing pertinent medical records, obtaining and reviewing medical history, performing an appropriate exam, ordering medications,
tests and procedures. Time also includes documentation of this encounter, coordinating patient care and communicating with other healthcare professionals. Total time does not include separately billed tests performed on this date of service.
Subjective Dataa
Subjective Data
Date of Service:
Date of Service: May 09, 2024
Chief Complaint: Layboy Tender Follow Up and Pulmonary Follow Up
Subjective:
Pt seen and evaluated this AM. Per nursing staff, overnight pt had a pill bottle of oxycodone and took some of his THC tincture - he said he slept well. Abd pain this AM -CTA of abdomen/pelvis done this morning showing no evidence of endoleak.
Hematuria resolved. He is saturating 96% on room air. Had a bowel movement this morning. at bedside and I answered all of her as well as the patient's questions. Patient has occasional cough with some phlegm but he is breathing and coughing
at his baseline. He denies chest pain, headache, nausea, diarrhea, fevers or chills.
Review of Systems
General: Other (Negative unless mentioned above)
Objective Data
Data Reviewed
Vital Signs / I&O / Oxygen:
Vital Signs
Temp Pulse Resp BP Pulse Ox
97.9 F 107 34 147/88 93
05/09/24 07:55 05/09/24 11:00 05/09/24 11:00 05/09/24 11:00 05/09/24 10:21
Intake and Output
05/08/24 05/09/24 05/10/24
06:59 06:59 06:59
Intake Total 1365 / 1365 500 / 500 240 / 240
Output Total 945 / 945 1020 / 1020 100 / 100
Balance 420 / 420 -520 / -520 140 / 140
SaO2 93
Nasal Cannula flow liters per 2
minute
Physical Exam
General: Respiratory Distress (Negative), Comfortable and Sweats (negative)
HEENT: Normocephalic, Anicteric and Moist Mucous Membranes
Cardiovascular: S1-S2 and Peripheral Edema (Negative)
Respiratory: Clear, Wheeze (Negative), Crackles (Negative), Rhonchi (Negative) and Non-Labored Respirations
GI: Soft, Non Distended, Tender (RLQ) and Normal Bowel Sounds
Neurology: AO x 3 and Tremors (Negative)
Skin: Warm, Dry and Jaundice (Negative)
Labs/Micro/Reports
Lab Data
05/09/24 03:20
05/09/24 03:20
--- NOTE | 2024-05-09 09:06 | PN.CDI ---
CDI
- -
CDI:
Physician Documentation Request
Admit Date: 05/07/24 06:10
Dear Tierra Patino,
05/07 patient underwent Percutaneous fenestrated aortic stent graft repair of juxtarenal abdominal aortic aneurysm
05/08 Nursing noted ' Patient bladder scanned for 0 ml. UOP remains bloody'
H/H results (including preop)
05/02/24 05/07/24 05/08/24
09:33 11:24 03:13
Hgb 15.3 13.7 11.7 L
Hct 45.5 39.8 33.4 L
05/09/24
03:20
Hgb 10.9 L
Hct 31.3 L
Could you please provide a diagnosis that supports the above lab abnormalities and additional evaluation/ monitoring:
Acute blood loss anemia
Anemia- other please specify
Abnormal lab values clinically insignificant
Other
Use of terms such as suspected, likely, concern for, or probable (associated with a specific diagnosis that is being evaluated, monitored, or treated as if it exists) are acceptable and can be coded in the inpatient setting, when documented at the
time of discharge.
Thank you,
Jyoti Og RN, BSN
CDI Specialist
tiger text
Please use your independent medical judgment in providing your response.
--- NOTE | 2024-05-09 10:00 | PTCARENOTE ---
CT scan normal per Vascular team, patient able to eat, drink ambulate.
[2024-05-09] MEDS: XOPENEX HFA 45 MCG INHALER 2 PUFF INH ×2 (10:19→14:29)
--- NOTE | 2024-05-09 12:00 | PTCARENOTE ---
Patient continues to be tachypneic and have increased work of breathing. Seen by vascular team regarding CT results. May discharge home.
[2024-05-09 12:05] LABS: Magnesium 1.5 mg/dl (1.6-2.3); Phosphorus 2.3 mg/dl (2.5-4.5)
--- NOTE | 2024-05-09 12:51 | PTCARENOTE ---
Dr. Rodriguez would like to keep patient admitted for one more night, labs ordered, will rule out dvt or any clear source of abdominal pain for patient. Patient continues to have julia urine, urinating about 100ml of urine at a time.
--- NOTE | 2024-05-09 13:29 | CM ---
CM following re: discharge planning.
reviewed pt' chart, met with pt and pt's spouse at bedside.
Pt is POD #2 Percutaneous fenestrated aortic stent graft repair of juxtarenal abdominal aortic aneurysm, continue supportive care.
Substance abuse counseling noted. CM spoke to the pt and his spouse and both denied pt's substance abuse. per pt, he has 1 or 2 glasses of wine per week and he feels it's normal. Pt declined to meet with [facility].
PT and OT evaluations noted - home PT or outpatient therapy recommended. both p[t and his spouse are aware and they preferred outpatient PT. Pt reports he already has a script for outpatient PT/OT and he will receive outpatient therapy in [place]
area.
D/C plan: home with already set up outpatient PT and OT. Spouse to transport at discharge.
CM will follow with discharge plan updates as hospitalization progresses.
[2024-05-09 13:38] LABS: Amylase 35 U/L (30-110); Lactic Acid 1.3 mmol/L (0.7-2.0); Lipase 23 U/L (23-300); Magnesium 1.6 mg/dl (1.6-2.3); Phosphorus 2.2 mg/dl (2.5-4.5)
[2024-05-09] MEDS: MAGNESIUM OXIDE 500 MG PO (14:29)
[2024-05-09] MEDS: FOLVITE 1 MG PO (14:29)
[2024-05-09] MEDS: NEUTRA-PHOS POWDER PACKET 500 MG PO ×2 (14:29→17:34)
[2024-05-09] MEDS: MUCINEX 1200 MG PO ×2 (15:45→20:17)
--- NOTE | 2024-05-09 15:51 | PTCARENOTE ---
US of lower extremities completed in room
[2024-05-09] MEDS: LIPITOR 10 MG PO (17:34)
--- NOTE | 2024-05-09 19:39 | PTCARENOTE ---
Received patient report via bedside. Pt. AOx3, ODONNELL, able to ambulate and use bathroom. NSR, UE present on palpitation, LE present with Doppler. Scattered rhonchi and crackles, 93% RA. Tachypneic and dyspnea at rest. Stomach pain around incision
site. Hypoactive bowel sounds in all 4 quadrants. Inguinal hernia present which patient is aware of. Bilateral groin incisions with ecchymosis left>right. Bilateral AC's. Urine is julia and clear, pt using a urinal. Safe environment maintained.
at bedside.
[2024-05-09] MEDS: THIAMINE INJECTION 200 MG IV (20:17)
[2024-05-09] MEDS: SINEMET CR 25-100 (EXTENDED RELEASE) 2 TABLET PO (21:58)
[2024-05-09] MEDS: CYMBALTA DELAYED RELEASE 60 MG PO (21:59)
--- NOTE | 2024-05-09 23:57 | PTCARENOTE ---
Patient continues to be tachypneic, soft foam placed on right heal due to redness otherwise pt's status remains unchanged. Safe environment maintained and will continue to monitor.
[2024-05-10] VITALS (15 sets, daily range): BP systolic 124–157; BP diastolic 74–102; PULSE 109; O2SAT 92; BMI 24.6
[2024-05-10] MEDS: HEPARIN SC (02:35)
[2024-05-10 04:50] LABS: Hematocrit 36.5 % (39.0-52.0); Hemoglobin 12.6 g/dL (13.0-18.0); Mean Corp Hgb Conc. 34.5 g/dL (33.0-37.0); Mean Corpuscular Hgb 31.3 pg (27.0-31.0); Mean Corpuscular Volume 90.8 fL (80.0-94.0); Mean Platelet Volume 10.2 fL (7.4-10.4); Platelet Count 107 10^3/uL (130-400); Red Blood Cell Count 4.02 10^6/uL (4.70-6.10); Red Cell Dist. Width 13.8 % (11.5-14.5); White Blood Cell Count 10.1 10^3/uL (4.8-10.8)
[2024-05-10] MEDS: MORPHINE SULFATE 2 MG IV (05:07)
[2024-05-10 05:57] LABS: Blood Urea Nitrogen 12 mg/dl (9-20); Calcium 8.7 mg/dl (8.4-10.2); Carbon Dioxide 29 mmol/L (22-30); Chloride 97 mmol/L (98-107); Estimated Creatinine Clearance 68 ml/min; Glucose 101 mg/dl (70-99); Magnesium 1.6 mg/dl (1.6-2.3); Potassium 3.6 mmol/L (3.5-5.1); Sodium 132 mmol/L (135-145); eGFR > 60.00
[2024-05-10] MEDS: SPIRIVA RESPIMAT 2.5 MCG 2 PUFF INH (07:31)
[2024-05-10] MEDS: SYMBICORT 80/4.5 MCG INHALER 2 PUFF INH ×2 (07:31→20:24)
--- NOTE | 2024-05-10 07:31 | W.PN.VS ---
Addendum entered and electronically signed by Alexei Sewell MD 05/10/24 09:40:
Seen and examined with QUIRINO Mchugh. Agree with findings as noted below. Overall looks okay but he is still tachypneic and slightly tachycardic. Patient does not note any dyspnea though subjectively. He feels comfortable and notes that feels
relatively at baseline. Audibly rhonchorous. Groin incision sites are clean dry and intact but the left groin with small swelling. No large pulsatile mass. Right foot is warm, left foot is slightly cool. However he is good good Doppler signals
in the left posterior tibial, right side palpable pedal pulses. Plan/as discussed and noted below. Will check chest x-ray, continue pulmonary toilet. If any ongoing tachycardia/tachypnea will consider CTA chest to rule out PE.
Original Note:
Today's Communication / Plan
-
Patient seen and examined at bedside with Dr. Alexei Sewell, below plan reviewed with attending.
Assessment/Plan
-
POD3 Percutaneous fenestrated aortic stent graft repair of juxtarenal abdominal aortic aneurysm:
[facility] P-2 -34-107, large fenestration for SMA, bilateral renal artery fenestrations
en D-12 -28-76 distal main body
ZSLE 16-74 RIGHT iliac extension
ZSLE 16-90 LEFT iliac extension)
Bilateral renal artery stenting for fenestrated stent graft repair (6 x 22 iCasts bilaterally, post-dilated proximal to 10 mm bilaterally)
ProGlide closure of bilateral femoral artery access
Plan:
-Chest x-ray given tachypnea but patient is in no clear distress
-Left groin duplex ultrasound given palpation of small nonpulsatile mass
-Continue home medication regimen for COPD
-Appreciate urology, continuing to monitor urine color
Subjective Data
-
Date of Service: May 10, 2024
Patient seen and examined at bedside, offers no complaints. Reports well-managed postoperative pain. Does endorse baseline tachypnea and requirement of supplemental oxygen at home, he feels he is at his baseline respiratory status. Denies nausea,
vomiting, fever, and chills.
Objective Data
-
Vital Signs
Temp Pulse Resp BP Pulse Ox
97.0 F 102 32 157/96 95
05/10/24 03:44 05/10/24 06:00 05/10/24 06:00 05/10/24 06:00 05/10/24 04:00
Intake and Output
05/09/24 05/10/24 05/11/24
06:59 06:59 06:59
Intake Total 500 / 500 850 / 850
Output Total 1020 / 1020 950 / 950
Balance -520 / -520 -100 / -100
Intake:
Oral fluids 500 / 500 850 / 850
Output:
Urine, Voided 1020 / 1020 950 / 950
Lab Results
05/10/24 04:21
05/10/24 04:21
Calcium 8.7 mg/dl (8.4-10.2) 05/10/24 04:21
Phosphorus 2.2 mg/dl (2.5-4.5) L 05/09/24 13:17
Magnesium 1.6 mg/dl (1.6-2.3) 05/10/24 04:21
Physical Exam
-
AAOx3
Patient resting In bed comfortably with no apparent distress but tachypnea noted, pulse ox reading greater than 95% on room air, coughing witnessed
Heart rate in the low 100s
Abdomen soft, no longer tender on exam, umbilical hernia present and easily reducible
Right groin site clean, soft, intact. No swelling or drainage. Left groin site with small palpable mass near puncture site, nonpulsatile, no evidence of hematoma, all surrounding compartments soft.
Bilateral doppler PT pulses
[2024-05-10] MEDS: XOPENEX HFA 45 MCG INHALER 2 PUFF INH ×3 (07:34→20:24)
[2024-05-10] MEDS: CYMBALTA DELAYED RELEASE 30 MG PO (08:07)
[2024-05-10] MEDS: PLAVIX 75 MG PO (08:07)
[2024-05-10] MEDS: ROXICODONE 5 MG PO ×2 (08:07→22:27)
[2024-05-10] MEDS: THERAGRAN 1 TABLET PO (08:08)
[2024-05-10] MEDS: PAXIL 10 MG PO (08:08)
[2024-05-10] MEDS: ZESTRIL 10 MG PO (08:08)
[2024-05-10] MEDS: FOLVITE 1 MG PO (08:08)
[2024-05-10] MEDS: PROTONIX 40 MG PO (08:08)
[2024-05-10] MEDS: LOW STRENGTH ASPIRIN 81 MG PO (08:08)
[2024-05-10] MEDS: HEPARIN 5000 UNITS SC ×2 (08:08→16:48)
[2024-05-10] MEDS: SINEMET CR 25-100 (EXTENDED RELEASE) 1 TABLET PO (08:08)
[2024-05-10] MEDS: THIAMINE INJECTION 200 MG IV ×2 (08:09→19:45)
[2024-05-10] MEDS: NICODERM TRANSDERMAL 21 MG TRANSDERM (08:26)
[2024-05-10] MEDS: MUCINEX 1200 MG PO ×2 (08:28→19:45)
[2024-05-10] MEDS: ATIVAN 1 MG PO (08:29)
--- NOTE | 2024-05-10 08:32 | W.PN.INTV ---
Today's Communication / Plan
Recommendations
Up OOB as tolerated
Pain control
Monitor hematuria
PT/OT
Nicotine patch
Symbicort/Spiriva and resume Trelegy upon discharge
Continue Mucinex and flutter valve with prn Tessalon Perles to help with the cough
Start prednisone taper for suspected COPD exacerbation
Civil Designer/Pulmonary service will follow along while patient remains in the ICU. Once he is discharged or downgraded then we will sign off. Outpatient follow-up will be arranged with Dr. Concepcion (last office visit on 03/07/2024).
Assessment
-
Assessment: 78-year-old male active tobacco smoker with a past medical history of COPD, history of pneumonia, history of lung nodules, TOBY on CPAP, hyperlipidemia, hypertension, colonic polyps, RLS and chronic LBP who presents with elective FEVAR
of known infrarenal AAA. Patient known to vascular surgery with last office visit on 03/28/2024 Dr. Rodriguez. Discussion held and CT angiogram shows a juxtarenal abdominal aortic aneurysm and he is not a good candidate for open aortic aneurysm
surgery. Fenestrated stent graft repair was discussed and risks and benefits were also reviewed in detail. Patient has agreed to fenestrated stent graft, which he obtained today (05/07/2024). I saw the patient after he came to the ICU and he was
in no acute distress, with BP 119/75 on Cardene at 10mg/hr, heart rate 97, saturating 96% on facemask at 6 L/min. Patient still sleepy from anesthesia but is answering my questions appropriately. He denies shortness of breath, abdominal pain,
chest pain.
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
nodules, tobacco use disorder
Impression:
#Infrarenal abdominal aortic aneurysm without rupture s/p FEVAR (POD#3)
#Abdominal pain mainly in RLQ without peritoneal symptoms - resolved
#Leukocytosis - resolved
#Hematuria, likely traumatic - improved
#Thrombocytopenia - acute on chronic (baseline ranging between 96�273 over the last 15-16 years)
#Tobacco Use Disorder (continues to actively smoke)
#COPD with suspected acute exacerbation- severe severity per spirometry from 11/09/2023 (post-BD FEV1: 0.94L/39% predicted)
#Mild restrictive lung disease with post-bronchodilator FVC: 2.17 L/64% predicted
#TOBY intolerant to CPAP, and patient is not interested in trialing treatment
Plan:
Postoperative surgical intensive care unit monitoring
Supplemental oxygen as needed to keep SpO2 >88% and <96%
Wean O2 as tolerated to maintain goal SpO2 as above
prn nebulized bronchodilators
Continue Symbicort + Spiriva while inpatient and resume Trelegy upon discharge
Continue Mucinex to help his cough and give flutter valve
Start prednisone taper given his cough with shortness of breath and hypoxia this morning with reported wheezing; he also has been continuing to smoke up until this hospitalization and part of his cough could also be due to him not smoking in several
days
Continue nicotine patch
Continue daily zithromax for his Hx of COPD
Aspiration precautions
Pain control
Unfortunately when he was seen as an outpatient, he is not a pulmonary rehab candidate due to significant back pain
Continue MSAS and use ativan prn
Neuro and vascular checks per protocol
Maintain MAP >65
Replete electrolytes with K>4, Mg>2
Maintain euglycemia with goal BG 140-180
Vascular surgery following-correspondence and operative notes reviewed
Incentive spirometer encouraged - 10x per hour for at least 4 hours a day
PT/OT
DVT prophylaxis
Early nutrition
Early mobilization
Civil Designer/Pulmonary service will follow along while patient remains in the ICU. Once he is discharged or downgraded then we will sign off. Outpatient follow-up will be arranged with Dr. Concepcion (last office visit on 03/07/2024).
Total time spent today was 50 minutes for this encounter. Time includes reviewing laboratory test/imaging results, reviewing pertinent medical records, obtaining and reviewing medical history, performing an appropriate exam, ordering medications,
tests and procedures. Time also includes documentation of this encounter, coordinating patient care and communicating with other healthcare professionals. Total time does not include separately billed tests performed on this date of service.
Subjective Dataa
Subjective Data
Date of Service:
Date of Service: May 10, 2024
Chief Complaint: Civil Designer Follow Up and Pulmonary Follow Up
Subjective:
Seen and evalutaed this AM. SOB this AM - was saturating 80% on room air. Given ativan due to anxiety. MSAS 3 this AM. According to him and the , he does not drink daily, and he may have 1-2 glasses of wine during the weekend. The patient
has a cough as well with phlegm coming up occasionally. No longer endorsing abdominal pain. Afebrile overnight. Denies chest pain, headache, fevers or chills. Urine is nonbloody but is still dark tea colored, no clots seen in urine.
Review of Systems
General: Other (Negative unless mentioned above)
Objective Data
Data Reviewed
Vital Signs / I&O / Oxygen:
Vital Signs
Temp Pulse Resp BP Pulse Ox
98.5 F 107 24 147/98 93
05/10/24 07:45 05/10/24 08:08 05/10/24 07:39 05/10/24 08:08 05/10/24 07:39
Intake and Output
05/09/24 05/10/24 05/11/24
06:59 06:59 06:59
Intake Total 500 / 500 850 / 850
Output Total 1020 / 1020 950 / 950
Balance -520 / -520 -100 / -100
SaO2 93
Nasal Cannula flow liters per 2
minute
Physical Exam
General: Respiratory Distress (Negative), Comfortable and Sweats (negative)
HEENT: Normocephalic, Anicteric and Moist Mucous Membranes
Cardiovascular: S1-S2 and Peripheral Edema (Negative)
Respiratory: Wheeze (Negative), Rhonchi ([place] bilaterally upon expiration), Accessory Resp Muscle Use (With activity) and Other (Coarse breath sounds =)
GI: Soft, Non Distended, Tender (RLQ) and Normal Bowel Sounds
Neurology: Awake, Tremors (Negative) and Lethargic (Sleepy at times but easily arousable and answers my questions appropriately)
Skin: Warm, Dry and Jaundice (Negative)
Labs/Micro/Reports
Lab Data
05/10/24 04:21
05/10/24 04:21
[2024-05-10] MEDS: ZITHROMAX 250 MG PO (08:41)
[2024-05-10] MEDS: KCL 40 MEQ PO (08:41)
--- NOTE | 2024-05-10 08:43 | PTCARENOTE ---
patient seen in bed on RA POX 80% . Placed on oxygen 2L via nasal canula. AAO x3 c/o of neck pain (states it's chronic pain ) heels pain . SOB observed . s/s of Anxiety noted. chest XRAy done , results pending. potassium 3.6 Replaced with Potassium
40meq po. Zithromax adm po
[2024-05-10] MEDS: SENOKOT-S 1 TABLET PO ×2 (13:04→19:45)
[2024-05-10] MEDS: DELTASONE 50 MG PO (13:04)
--- NOTE | 2024-05-10 14:06 | PTCARENOTE ---
AAO x3. ST 112 BP 138/101 via RT FA. 96% RA. patient SOB, Course moist non-productive cough. Visible tremors . B/L groin incisions ecchymoses continue to be noted soft to touch , well approximated. RT neck pain . heating pad applied with some pain
relieve. transfe to chair . OOB a this time . call bolaños within reach. Prednisone po adm per order
--- NOTE | 2024-05-10 16:14 | W.PN.UPDATE ---
Update Note
Progress Note Update
Appreciate pulmonary/lead rider assessment and follow-up. Chest x-ray was not significantly remarkable. Patient just seen and examined a little bit ago and he continued to have tachycardia and some tachypnea. In addition he was more sedate
appearing. Even per his this is not the way he appears at home. Of note nursing noted that when he got up and walked he became more tachypneic and off balance as well. Patient has received Ativan earlier today per nursing. He does appear
more sedate now. He is slightly tachypneic. He arouses easily. Still slightly tachycardic in the low 100s. Given all these findings and concern I favored obtaining CTA to rule out PE. Study just completed. I do not see any evidence of
definitive PE on my assessment. Will await final radiology determination. Continue pulmonary toilet. Hold all sedatives for now.
[2024-05-10] MEDS: LIPITOR 10 MG PO (16:49)
--- NOTE | 2024-05-10 17:06 | PTCARENOTE ---
patient in bed. on 2L of oxygen via nasal canula. Drowsy, AAO x3; Denies pain . Tachypnea, POX 100% Chest CT results pending
--- NOTE | 2024-05-10 17:11 | PTCARENOTE ---
chest CT resulted : No CT evidence for pulmonary embolism.
[2024-05-10] MEDS: MAGNESIUM OXIDE 500 MG PO (18:09)
[2024-05-10] MEDS: CYMBALTA DELAYED RELEASE 60 MG PO (22:27)
[2024-05-10] MEDS: SINEMET CR 25-100 (EXTENDED RELEASE) 2 TABLET PO (22:28)
[2024-05-11] VITALS: BP 146/98
[2024-05-11] MEDS: HEPARIN 5000 UNITS SC ×2 (01:23→08:34)
--- NOTE | 2024-05-11 03:22 | PTCARENOTE ---
pt alert and oriented x3. msas 1 because of sinus tachy. lungs coarse with crackles, on room air sats 97%. +BS. c/o chronic back pain PRN oxycodone given. bilateral groin sites bruised but soft.
[2024-05-11 04:00] VITALS: BP 151/98
[2024-05-11 04:39] LABS: Hemoglobin 12.3 g/dL (13.0-18.0); Mean Corp Hgb Conc. 36.2 g/dL (33.0-37.0); Mean Corpuscular Hgb 30.6 pg (27.0-31.0); Mean Corpuscular Volume 84.6 fL (80.0-94.0); Mean Platelet Volume 10.1 fL (7.4-10.4); Platelet Count 131 10^3/uL (130-400); Red Blood Cell Count 4.02 10^6/uL (4.70-6.10); Red Cell Dist. Width 13.7 % (11.5-14.5); White Blood Cell Count 10.9 10^3/uL (4.8-10.8)
[2024-05-11 04:55] LABS: ALT (SGPT) < 10 U/L (0-50); AST (SGOT) 20 U/L (17-59); Albumin 3.3 g/dl (3.5-5.0); Alkaline Phosphatase 102 U/L (38-126); Blood Urea Nitrogen 17 mg/dl (9-20); Calcium 9.2 mg/dl (8.4-10.2); Carbon Dioxide 23 mmol/L (22-30); Chloride 97 mmol/L (98-107); Estimated Creatinine Clearance 59 ml/min; Glucose 118 mg/dl (70-99); Magnesium 1.7 mg/dl (1.6-2.3); Phosphorus 3.6 mg/dl (2.5-4.5); Potassium 4.5 mmol/L (3.5-5.1); Sodium 128 mmol/L (135-145); Total Bilirubin 0.7 mg/dl (0.2-1.3); Total Protein 5.7 g/dl (6.3-8.2); eGFR > 60.00
[2024-05-11 04:56] LABS: Procalcitonin < 0.05 ng/ml (0.0-0.25)
[2024-05-11 06:00] VITALS: BMI 24.8
[2024-05-11] MEDS: SYMBICORT 80/4.5 MCG INHALER 2 PUFF INH (07:54)
[2024-05-11] MEDS: XOPENEX HFA 45 MCG INHALER 2 PUFF INH (07:54)
[2024-05-11] MEDS: SPIRIVA RESPIMAT 2.5 MCG 2 PUFF INH (07:54)
[2024-05-11 08:00] VITALS: BP 144/118
--- NOTE | 2024-05-11 08:10 | W.PN.VS ---
Addendum entered and electronically signed by Samir Rodriguez III, MD 05/11/24 12:06:
This patient was seen and examined with SHYANNE Heart. I agree with the history and physical exam as well as the assessment and plan. I have the following additions:
Looks good overall
Home today
Signed:
Samir Rodriguez III, MD
[facility] Vascular Surgery
[phone] (cell)
Original Note:
Today's Communication / Plan
-
Patient seen and examined at bedside with Dr. Samir Rodriguez III, below plan reviewed with attending.
Assessment/Plan
-
POD4 Percutaneous fenestrated aortic stent graft repair of juxtarenal abdominal aortic aneurysm:
[facility] P-2 -34-107, large fenestration for SMA, bilateral renal artery fenestrations
Zfen D-12 -28-76 distal main body
ZSLE 16-74 RIGHT iliac extension
ZSLE 16-90 LEFT iliac extension)
Bilateral renal artery stenting for fenestrated stent graft repair (6 x 22 iCasts bilaterally, post-dilated proximal to 10 mm bilaterally)
ProGlide closure of bilateral femoral artery access
Plan:
-Chest x-ray and CT scan with no evidence of acute pulmonary process, negative for pulmonary embolism
-Left groin duplex ultrasound negative for pseudoaneurysm
-Continue home medication regimen for COPD, pulmonology placed patient on steroid taper for suspected COPD exacerbation will continue on discharge
-Discharge today
Subjective Data
-
Date of Service: May 11, 2024
Patient seen and examined at bedside, reports marked improvement in fatigue following cessation of benzodiazepine medications. Additionally notes marked improvement in tachypnea and feels he is at his baseline respiratory status. Denies nausea,
vomiting, abdominal pain, fever, chills, lower extremity pain, chest pain, and bilateral lower extremity coolness.
Objective Data
-
Vital Signs
Temp Pulse Resp BP Pulse Ox
98.8 F 106 30 151/98 98
05/11/24 07:00 05/11/24 07:58 05/11/24 07:58 05/11/24 04:00 05/11/24 07:58
Intake and Output
05/10/24 05/11/24 05/12/24
06:59 06:59 06:59
Intake Total 850 / 850 580 / 580
Output Total 950 / 950 950 / 950
Balance -100 / -100 -370 / -370
Intake:
Oral fluids 850 / 850 580 / 580
Output:
Urine, Voided 950 / 950 950 / 950
Lab Results
05/11/24 04:19
05/11/24 04:19
Calcium 9.2 mg/dl (8.4-10.2) 05/11/24 04:19
Phosphorus 3.6 mg/dl (2.5-4.5) 05/11/24 04:19
Magnesium 1.7 mg/dl (1.6-2.3) 05/11/24 04:19
Total Bilirubin 0.7 mg/dl (0.2-1.3) 05/11/24 04:19
AST 20 U/L (17-59) 05/11/24 04:19
ALT < 10 U/L (0-50) 05/11/24 04:19
Alkaline Phosphatase 102 U/L (38-126) 05/11/24 04:19
Total Protein 5.7 g/dl (6.3-8.2) L 05/11/24 04:19
Albumin 3.3 g/dl (3.5-5.0) L 05/11/24 04:19
Physical Exam
-
AAOx3
Patient resting In bed comfortably with no apparent distress
Heart rate ranging from 90 to low 100s
Respiratory rate elevated but patient is in no clear distress, reports decrease in coughing, pulse ox at 96 on room air
Abdomen soft, no longer tender on exam, umbilical hernia present and easily reducible
Right groin site clean, soft, intact. No swelling or drainage. Left groin site soft, nonpulsatile, no evidence of hematoma, all surrounding compartments soft.
Bilateral doppler PT pulses
[2024-05-11] MEDS: SINEMET CR 25-100 (EXTENDED RELEASE) 1 TABLET PO (08:32)
[2024-05-11] MEDS: FOLVITE 1 MG PO (08:32)
[2024-05-11] MEDS: CYMBALTA DELAYED RELEASE 30 MG PO (08:32)
[2024-05-11] MEDS: DELTASONE 50 MG PO (08:32)
[2024-05-11] MEDS: ZITHROMAX 250 MG PO (08:33)
[2024-05-11] MEDS: PLAVIX 75 MG PO (08:33)
[2024-05-11] MEDS: SENOKOT-S 1 TABLET PO (08:33)
[2024-05-11] MEDS: ZESTRIL 10 MG PO (08:33)
[2024-05-11] MEDS: LOW STRENGTH ASPIRIN 81 MG PO (08:33)
[2024-05-11] MEDS: MUCINEX 1200 MG PO (08:33)
[2024-05-11] MEDS: PROTONIX 40 MG PO (08:33)
[2024-05-11] MEDS: PAXIL 10 MG PO (08:33)
[2024-05-11] MEDS: THERAGRAN 1 TABLET PO (08:34)
[2024-05-11] MEDS: NICODERM TRANSDERMAL 21 MG TRANSDERM (08:34)
[2024-05-11] MEDS: THIAMINE INJECTION 200 MG IV (08:34)
[2024-05-11] MEDS: ROXICODONE 5 MG PO (08:38)
--- NOTE | 2024-05-11 08:48 | W.PN.INTV ---
Today's Communication / Plan
Recommendations
Up OOB as tolerated
Pain control
Hematuria resolved
PT/OT
Nicotine patch
Symbicort/Spiriva and resume Trelegy upon discharge
Continue Mucinex and flutter valve with prn Tessalon Perles to help with the cough
Continue prednisone taper for suspected COPD exacerbation
Patient is stable for discharge from pulmonary perspective
Contact Lens Blocker And Cutter/Pulmonary service will follow along while patient remains in the ICU. Once he is discharged or downgraded then we will sign off. Outpatient follow-up will be arranged with Dr. Concepcion (last office visit on 03/07/2024).
Assessment
-
Assessment: 78-year-old male active tobacco smoker with a past medical history of COPD, history of pneumonia, history of lung nodules, TOBY on CPAP, hyperlipidemia, hypertension, colonic polyps, RLS and chronic LBP who presents with elective FEVAR
of known infrarenal AAA. Patient known to vascular surgery with last office visit on 03/28/2024 Dr. Rodriguez. Discussion held and CT angiogram shows a juxtarenal abdominal aortic aneurysm and he is not a good candidate for open aortic aneurysm
surgery. Fenestrated stent graft repair was discussed and risks and benefits were also reviewed in detail. Patient has agreed to fenestrated stent graft, which he obtained today (05/07/2024). I saw the patient after he came to the ICU and he was
in no acute distress, with BP 119/75 on Cardene at 10mg/hr, heart rate 97, saturating 96% on facemask at 6 L/min. Patient still sleepy from anesthesia but is answering my questions appropriately. He denies shortness of breath, abdominal pain,
chest pain.
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
nodules, tobacco use disorder
Impression:
#Infrarenal abdominal aortic aneurysm without rupture s/p FEVAR (POD#4)
#Abdominal pain mainly in RLQ without peritoneal symptoms - resolved
#Leukocytosis - resolved
#Hematuria, likely traumatic - resolved
#Thrombocytopenia - acute on chronic (baseline ranging between 96�273 over the last 15-16 years)
#Tobacco Use Disorder (continues to actively smoke)
#COPD with suspected acute exacerbation- severe severity per spirometry from 11/09/2023 (post-BD FEV1: 0.94L/39% predicted)
#Mild restrictive lung disease with post-bronchodilator FVC: 2.17 L/64% predicted
#TOBY intolerant to CPAP, and patient is not interested in trialing treatment
Plan:
Postoperative surgical intensive care unit monitoring
On room air breathing comfortably- Maintain goal SpO2 88-95%
prn nebulized bronchodilators
Continue Symbicort + Spiriva while inpatient and resume Trelegy upon discharge
Continue Mucinex to help his cough and give flutter valve
Continue prednisone taper (started 05/10) given his cough with shortness of breath and hypoxia this morning with reported wheezing; he also had been smoking up until this hospitalization and part of his cough could also be due to him not smoking in
several days
Continue nicotine patch
Continue daily zithromax for his Hx of COPD
Aspiration precautions
Pain control
Unfortunately when he was seen as an outpatient, he is not a pulmonary rehab candidate due to significant back pain
Neuro and vascular checks per protocol
Maintain MAP >65
Replete electrolytes with K>4, Mg>2
Maintain euglycemia with goal BG 140-180
Vascular surgery following-correspondence and operative notes reviewed
Incentive spirometer encouraged - 10x per hour for at least 4 hours a day
PT/OT
DVT prophylaxis
Early nutrition
Early mobilization
Patient is stable for discharge from pulmonary perspective.
Contact Lens Blocker And Cutter/Pulmonary service will follow along while patient remains in the ICU. Once he is discharged or downgraded then we will sign off. Outpatient follow-up will be arranged with Dr. Concepcion (last office visit on 03/07/2024).
Total time spent today was 35 minutes for this encounter. Time includes reviewing laboratory test/imaging results, reviewing pertinent medical records, obtaining and reviewing medical history, performing an appropriate exam, ordering medications,
tests and procedures. Time also includes documentation of this encounter, coordinating patient care and communicating with other healthcare professionals. Total time does not include separately billed tests performed on this date of service.
Subjective Dataa
Subjective Data
Date of Service:
Date of Service: May 11, 2024
Chief Complaint: Contact Lens Blocker And Cutter Follow Up and Pulmonary Follow Up
Subjective:
Seen and evaluate this morning. No acute events reported overnight. On room air saturating 95%, HR 102, BP 147/100. He denies SOB. He is eager to go home. at bedside. All questions were answered.
Review of Systems
General: Other (Negative unless mentioned above)
Objective Data
Data Reviewed
Vital Signs / I&O / Oxygen:
Vital Signs
Temp Pulse Resp BP Pulse Ox
98.2 F 106 30 144/118 96
05/11/24 11:02 05/11/24 07:58 05/11/24 07:58 05/11/24 08:33 05/11/24 10:41
Intake and Output
05/10/24 05/11/24 05/12/24
06:59 06:59 06:59
Intake Total 850 / 850 580 / 580 240 / 240
Output Total 950 / 950 950 / 950 100 / 100
Balance -100 / -100 -370 / -370 140 / 140
SaO2 96
Nasal Cannula flow liters per 2
minute
Physical Exam
General: Respiratory Distress (Negative), Comfortable and Sweats (negative)
HEENT: Normocephalic, Anicteric and Moist Mucous Membranes
Cardiovascular: S1-S2 and Peripheral Edema (Negative)
Respiratory: Wheeze (Faint end expiratory wheezing heard bilaterally in the upper to mid lung chua), Crackles (Negative), Rhonchi ([place] bilaterally upon expiration), Non-Labored Respirations, Accessory Resp Muscle Use (negative) and Other (Poor
inspiratory effort/reduced breath sounds bilaterally)
GI: Soft, Non Distended, Tender (RLQ) and Normal Bowel Sounds
Neurology: Awake, Alert and Tremors (Negative)
Skin: Warm, Dry and Jaundice (Negative)
Labs/Micro/Reports
Lab Data
05/11/24 04:19
05/11/24 04:19
--- NOTE | 2024-05-11 09:00 | PTCARENOTE ---
Received pt @ change of shift, assessment per charting- see flow sheet. Pt.'s @ bedside; pt and s/o informed on plan of care thus far this AM. Instructed on how to report care concerns and call miky lobo in reach.
[2024-05-11 10:00] VITALS: BP 147/100
--- NOTE | 2024-05-11 11:43 | PN.CDI ---
CDI
- -
CDI:
Physician Documentation Request
Admit Date: 05/07/24 06:10
Dear Venita Mchugh,
Patient is s/p Percutaneous fenestrated aortic stent graft repair of juxtarenal abdominal aortic aneurysm
Most recent sodium results:
Laboratory Tests
05/09/24 05/10/24 05/11/24
03:20 04:21 04:19
Sodium 135 132 L 128 L
Please provide a diagnosis that supports the above lab abnormalities and additional evaluation/monitoring:
Hyponatremia
Abnormal lab value clinically insignificant
Other
Use of terms such as suspected, likely, concern for, or probable (associated with a specific diagnosis that is being evaluated, monitored, or treated as if it exists) are acceptable and can be coded in the inpatient setting, when documented at the
time of discharge.
Thank you,
Jyoti Og RN, BSN
CDI Specialist
tiger text
Please use your independent medical judgment in providing your response.
--- NOTE | 2024-05-11 12:05 | PN.CDI ---
CDI
- -
CDI:
Physician Documentation Request
Admit Date: 05/07/24 06:10
Dear Venita Mchugh,
MSAS ordered for patient.
05/08 19:15 Nursing note states :pt requested for me retrieve his nasal spray from his bag from home where I found a prescription bottle of oxycodone (10mg 52 pills). Also in his bed was a dropper vial called 'Dream' which contained THC'
05/10 patient received PO ativan
05/10 Nursing documents 'anxiety noted' , 'visible tremors'
If possible, please provide further specificity as outlined below:
1. Please identify the known or suspected drug/substances involved.
- Unable to determine
2. Please specify the pattern of use, include all that apply:
- Use, with or without abuse and/or dependence
- Abuse with or without dependence
- Dependence
3. Please identify any associated manifestations
- Intoxication: with or without delirium, with or without perceptual disturbance
- With substance induced psychotic disorder: with delusions and/or hallucinations
- Withdrawal
- With substance induced sleep disorder and/or sexual dysfunction
- Other, please specify
- No manifestations
Use of terms such as suspected, likely, concern for, or probable (associated with a specific diagnosis that is being evaluated, monitored, or treated as if it exists) are acceptable and can be coded in the inpatient setting, when documented at the
time of discharge.
Thank you,
Jyoti Og RN, BSN
CDI Specialist
tiger text
Please use your independent medical judgment in providing your response.
--- NOTE | 2024-05-11 13:01 | CM ---
CM following re: discharge planning.
Reviewed pt' chart, met with pt and pt's spouse at bedside.
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
PT and OT evaluations noted - home PT or outpatient therapy recommended. Both pt and his spouse are aware and they preferred outpatient PT. Pt reports he already has a script for outpatient PT/OT and he will receive outpatient therapy in [place]
area. Pt's spouse stated that per vascular surgery recommendations pt will wait 2 weeks before he starts outpatient therapy.
D/C plan: home with already set up outpatient PT and OT after 2 weeks upon the discharge. Spouse to transport.
--- NOTE | 2024-05-11 14:03 | PTCARENOTE ---
Received further orders for D/C. Discharge packet completed w patient and spouse; all questions clarified/answered. security monitor and PIVs removed. Staff escorted via wheelchair for discharge. No further needs from this RN.
--- NOTE | 2024-05-15 09:37 | W.PN.UPDATE ---
Update Note
Progress Note Update
In response to CDI:
05/07 patient underwent Percutaneous fenestrated aortic stent graft repair of juxtarenal abdominal aortic aneurysm
05/08 Nursing noted ' Patient bladder scanned for 0 ml. UOP remains bloody'
H/H results (including preop)
05/02/24 05/07/24 05/08/24
09:33 11:24 03:13
Hgb 15.3 13.7 11.7 L
Hct 45.5 39.8 33.4 L
05/09/24
03:20
Hgb 10.9 L
Hct 31.3 L
Could you please provide a diagnosis that supports the above lab abnormalities and additional evaluation/ monitoring:
Acute blood loss anemia related to multi-factorial components of surgical blood loss, hematuria secondary to Rodriguez catheter likely aggravating enlarge prostate, and hemodilution with IV fluids.
Most recent sodium results:
Laboratory Tests
05/09/24 05/10/24 05/11/24
03:20 04:21 04:19
Sodium 135 132 L 128 L
Please provide a diagnosis that supports the above lab abnormalities and additional evaluation/monitoring:
Abnormal lab value clinically insignificant, patient with history of fluctuating sodium value that is not sustained and no physical exam findings to support treating.
MSAS ordered for patient.
05/08 19:15 Nursing note states :pt requested for me retrieve his nasal spray from his bag from home where I found a prescription bottle of oxycodone (10mg 52 pills). Also in his bed was a dropper vial called 'Dream' which contained THC'
05/10 patient received PO ativan
05/10 Nursing documents 'anxiety noted' , 'visible tremors'
If possible, please provide further specificity as outlined below:
1. Please identify the known or suspected drug/substances involved.
- Unable to determine, patient did not provide/state any indication of ETOH or drug abuse, initially indicated daily drinking and narcotic use but then clarified alcohol intake is only 1-2 drinks per week. 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
2. Please specify the pattern of use, include all that apply:
- Use, with or without abuse and/or dependence
- Abuse with or without dependence
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
3. Please identify any associated manifestations
- Other, please specify unclear if nursing observation of tremor was a form of withdraw or a baseline tremor, suspect no manifestations but I cannot speak or document for a nursing or healthcare memeber's assessment
== END 2024-05-11 14:02 | disposition home or self-care (01) | DRG 269 ==
LOC: ICU 06:10
PROVIDERS: Nurse Practitioner; Nurse Practitioner Acute Care; Nurse Practitioner Primary Care; ADMITTING PHYSICIAN Surgery Vascular Surgery; CONSULT PHYSICIAN Internal Medicine Critical Care Medicine; CONSULT PHYSICIAN Specialist; FAMILY PHYSICIAN Family Medicine
PROC: 04V03EZ Restriction of Abdominal Aorta with Branched or Fenestrated Intraluminal Device, One or Two Arteries, Percutaneous Approach (ICD-10-PCS; 2024-05-07)
DX: I71.42 Juxtarenal abdominal aortic aneurysm, without rupture (principal); D62 Acute posthemorrhagic anemia; G47.33 Obstructive sleep apnea (adult) (pediatric); E78.00 Pure hypercholesterolemia, unspecified; I10 Essential (primary) hypertension; G25.81 Restless legs syndrome; M54.50 Low back pain, unspecified; G89.29 Other chronic pain; M81.0 Age-related osteoporosis without current pathological fracture; F32.A Depression, unspecified; M41.9 Scoliosis, unspecified; D69.6 Thrombocytopenia, unspecified; J98.4 Other disorders of lung; F17.210 Nicotine dependence, cigarettes, uncomplicated; K76.89 Other specified diseases of liver; J44.9 Chronic obstructive pulmonary disease, unspecified; R31.9 Hematuria, unspecified; Z79.891 Long term (current) use of opiate analgesic; Z79.899 Other long term (current) drug therapy; Z87.01 Personal history of pneumonia (recurrent)
CPT/HCPCS: 34847; 36245; 36415; 37236; 37237; 71045; 71275; 74174; 76937; 80048; 80053; 82150; 82962; 83605; 83690; 83735; 84100; 84145; 85025; 85027; 85610; 85730; 86850; 86900; 86901; 87070; 93005; 93926; 93970; 94640; 97163; 97167; 97530; C1725; C1760; C1769; C1874; C1887; C1892; C1894; C2628; Q9967

== ENCOUNTER 2024-05-16 17:50 | Emergency (ER) | payer OTHER, SELFPAY ==
[2024-05-16 18:07] VITALS: BP 113/82
--- NOTE | 2024-05-16 19:28 | ED.GENMED ---
History of Present Illness
General
Chief Complaint: Fall
Time Seen by Provider: 05/16/24 19:03
History of Present Illness
History of Present Illness:
78-year-old male with history of COPD, history of AAA status postrepair 05/07 (elective w/o rupture), history of compression fracture of the spine presenting to the for follow-up. Prior to arrival, patient tripped going up his steps outside. He
lost his footing. His was able to catch him, fell with him down to the ground. Patient however did strike his head on the concrete. Denies loss of consciousness. Arrives with hematoma to the right parietal scalp and abrasion to the ankle.
Denies any neck pain. Reports uncomplicated postoperative period after AAA, denies chest pain or difficulty breathing denies abdominal pain. Reports chronic back pain, denies any acute or chronic back pain. Denies weakness or numbness to his
extremities. Denies additional medical complaints
Past History
Past History
ED Past Medical History: Arrthythmia (WPW), COPD, CVA, GERD, HTN, Hypercholesterolemia, Psychiatric (MDD) and Other (osteoarthitis, chronic low back pain/narcotic dependent)
ED Past Surgical History: Cardiac (Ablation for WPW), Urological (Prostatectomy) and Other (Hernia repair)
Social History
Tobacco: Smoker
Alcohol: Daily (Wine)
Personal:
Living: with family
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
Family History
Family History: Other (reviewed and non-contributory)
Phy Exam
Physical Exam
Physical Exam:
General: Well-appearing, no clinical signs of dehydration, nontoxic and in no acute distress
HEENT: Small hematoma to the right parietal scalp
Neck: appears supple, no reproducible tenderness, range of motion intact
CV: Normal heart rate, regular rhythm, no evidence of cyanosis
Resp: No accessory muscle use, no increased work of breathing, lungs clear to auscultation bilaterally
Abd: Soft and non-distended, no tenderness to palpation
Extremities: No deformities, no swelling, no erythema, pulses and sensation intact. Small abrasion to the right lateral malleoli without significant deformity. Scattered areas of ecchymosis to extremities, which patient reports is chronic.
Neuro: alert, no focal neurologic deficit
: deferred
Rectal: deferred
Psych: Normal affect
Skin: Intact
Course
Orders/Labs/Results
Orders:
Orders
05/16/24 18:14
CT Head W/o Iv Contrast Urgent
Comment:
Reason For Exam: fall, right sided head strike
Cervical Spine wo Contrast CT [CT Cervical Spine W/o Iv Contr] Urgent
Comment:
Reason For Exam: fall, right sided head strike.
05/16/24 19:28
Tetanus/Diphth/Acelpertussis [Adacel] 0.5 ml IM .ONCE ONE
Vital Signs
Initial and Last Documented VS:
Initial Vital Signs
Temp Pulse Resp BP Pulse Ox
98.0 F 100 24 113/82 96
05/16/24 18:07 05/16/24 18:07 05/16/24 18:07 05/16/24 18:07 05/16/24 18:07
Last Documented Vital Signs
Temp Pulse Resp BP Pulse Ox
98.0 F 100 24 113/82 96
05/16/24 18:07 05/16/24 18:07 05/16/24 18:07 05/16/24 18:07 05/16/24 18:07
*Critical Care Note
Total Time (30-74mins, 75-104mins- exclusive of procedures): Not Applicable
comment:
78-year-old male with history of COPD, history of AAA status postrepair 05/07 (elective w/o rupture), history of compression fracture of the spine presenting to the emergency department after a mechanical fall. Vital signs on arrival are normal.
On exam, patient well-appearing, no acute distress or discomfort. Patient does have evidence of obvious trauma, however no significant laceration repair. Given age, patient protocol for patient ordered for CT brain and C-spine. However, no
reproducible C-spine tenderness. No additional tenderness to the spine or extremities. Unremarkable examination of the chest/abdomen/pelvis. No concern for additional traumatic injuries. notes that she fell with the patient, likely taking
some of the brunt of the fall. Patient unknown last tetanus, so will update. Will clean patient's wounds and appropriately dress
19:30 - CT brain and C-spine unremarkable. Patient remains hemodynamically stable. At this time feel stable for discharge with close follow-up with [facility] physician. Return precautions discussed and patient verbalized understand
ED Attending Note
-
Portions of this chart may have been created with voice recognition software.� Occasional wrong word or��sound alike� substitutions may have occurred due to the inherent limitations of voice recognition software.
Discharge Plan
Departure
Patient Disposition: Home (Routine Discharge)
Date of Disposition: 05/16/24
Time of Disposition: 19:34
Patient with high blood pressure during this ER visit?: No
Discharge Problem:
Fall from standing, Traumatic hematoma of head
Instructions: Head Injury in Adults (DC), Skin Abrasions (DC)
Prescriptions:
No Action
atorvastatin 10 MG tablet
10 mg PO QPM
lisinopril 10 MG tablet
10 mg PO DAILY
omeprazole 20 MG capsule,delayed release(DR/EC)
20 mg PO DAILY
oxycodone-acetaminophen 10-325 mg Tablet
1 tab PO Q6HPRN PRN (Reason: SEVERE PAIN)
carbidopa-levodopa 25-100 mg tablet extended release
1 tab PO DAILY
carbidopa-levodopa 25-100 mg tablet extended release
2 tab PO HS
levalbuterol tartrate 45 mcg/actuation HFA aerosol inhaler
1 puff INHALATION R Q4HPRN PRN (Reason: SOB)
paroxetine HCl 10 mg Tablet
10 mg PO DAILY
azithromycin 250 mg Tablet
250 mg PO DAILY
levalbuterol HCl 1.25 mg/3 mL Solution For Nebulization
1.25 mg INHALATION Q4HPRN PRN (Reason: SOB/wheezing)
duloxetine 30 mg Capsule,Delayed Release(Dr/Ec)
30 mg PO DAILY
duloxetine 30 mg Capsule, Delayed Rel Sprinkle
60 mg PO HS
guaifenesin [Mucinex] 600 mg tablet extended release 12hr
600 mg PO DAILY
Trelegy Ellipta 100-62.5-25 mcg Blister With Device
1 inh INHALATION DAILY
multivitamin Tablet
1 tab PO DAILY
albuterol sulfate 2.5 mg /3 mL (0.083 %) Solution For Nebulization
2.5 mg INHALATION Q6HPRN PRN (Reason: SOB/WHEEZE)
fluticasone propionate 50 mcg/actuation [place],Suspension
2 spray INTRANASAL DAILY
prednisone 10 mg Tablet
See Taper PO DAILY 14 Days Qty: 14 0RF
Taper: Prednisone DC Starting at 50 mg daily
50 mg Daily for 2 Days and 0 Hour
40 mg Daily for 3 Days and 0 Hour
30 mg Daily for 3 Days and 0 Hour
20 mg Daily for 3 Days and 0 Hour
10 mg Daily for 3 Days and 0 Hour
Rx Instructions:
TAPER: 50 mg daily for 2 Days; 40 mg daily for 3 Days; 30 mg daily for 3 Days; 20 mg daily for 3 Days; 10 mg daily for 3 Days
clopidogrel 75 mg Tablet
75 mg PO DAILY Qty: 90 0RF
nicotine 21 mg/24 hr Patch 24 Hour
21 mg transdermal DAILY Qty: 7 0RF
aspirin 81 mg Tablet,Chewable
81 mg PO DAILY Qty: 90 0RF
Referrals:
UNKNOWN - PT DOES,NOT KNOW [Family Provider] -
Activity Restrictions/Additional Instructions:
You were seen in the emergency department for a fall
You had a normal CT scan of your head and cervical spine. Your tetanus status was updated for abrasions and a hematoma to your head
Please follow-up closely with your primary care physician.
Return to the emergency department for any worsening of your symptoms, or any development of chest pain, difficulty breathing, abdominal pain with persistent vomiting and inability to tolerate food or liquid by mouth (concern for dehydration),
weakness, headache or confusion, fever greater than 100.4, or any additional symptoms that are concerning to you.
Thank you for choosing [facility].
Interventions
Interventions:
*Risk Screen - Suicide Last Done: 05/16/24 18:12
*General Assessment Last Done: 05/16/24 18:12
*Neglect/Abuse Screening Last Done: 05/16/24 18:12
Discharge Date and Time
Print Language: NICARAGUAN
[2024-05-16] MEDS: ADACEL 0.5 ML IM (20:04)
[2024-05-16 20:23] VITALS: BP 128/78
== END 2024-05-16 20:24 | disposition home or self-care (01) ==
LOC: EMR 17:50
PROVIDERS: EMERGENCY PHYSICIAN Student in an Organized Health Care Education/Training Program
DX: S00.93XA Contusion of unspecified part of head, initial encounter (principal); S90.511A Abrasion, right ankle, initial encounter; W17.89XA Other fall from one level to another, initial encounter; Z23 Encounter for immunization; J44.9 Chronic obstructive pulmonary disease, unspecified; I10 Essential (primary) hypertension; K21.9 Gastro-esophageal reflux disease without esophagitis; E78.00 Pure hypercholesterolemia, unspecified; I45.6 Pre-excitation syndrome; F11.20 Opioid dependence, uncomplicated; M54.50 Low back pain, unspecified; G89.29 Other chronic pain; F17.200 Nicotine dependence, unspecified, uncomplicated; Z79.82 Long term (current) use of aspirin; Z90.79 Acquired absence of other genital organ(s); Z86.73 Personal history of transient ischemic attack (TIA), and cerebral infarction without residual deficits; Z86.79 Personal history of other diseases of the circulatory system; Z91.048 Other nonmedicinal substance allergy status
CPT/HCPCS: 99284; 90471; 70450; 72125; 90715

== ENCOUNTER → 2024-05-24 10:37 | Outpatient (REF) | payer OTHER, SELFPAY | LOC: RAD 10:37 | PROVIDERS: ATTENDING PHYSICIAN Psychiatry & Neurology Neurology; FAMILY PHYSICIAN Family Medicine | DX: M54.14 Radiculopathy, thoracic region (principal); M54.17 Radiculopathy, lumbosacral region | CPT/HCPCS: 72072; 72110 ==

== ENCOUNTER → 2024-06-05 12:49 | Outpatient (REF) | payer OTHER, SELFPAY | LOC: WOUND 12:49 | PROVIDERS: ATTENDING PHYSICIAN Surgery; FAMILY PHYSICIAN Family Medicine | DX: S91.001A Unspecified open wound, right ankle, initial encounter (principal); I73.9 Peripheral vascular disease, unspecified; I87.2 Venous insufficiency (chronic) (peripheral); G89.4 Chronic pain syndrome; F17.210 Nicotine dependence, cigarettes, uncomplicated; X58.XXXA Exposure to other specified factors, initial encounter | CPT/HCPCS: 99213 ==

== ENCOUNTER 2024-06-08 16:10 | Emergency (ER) | payer OTHER, SELFPAY ==
[2024-06-08 16:15] VITALS: BP 108/77
[2024-06-08 16:32] LABS: % Basophils 0.8 % (0-2); % Eosinophils 1.5 % (0-6); % Immature Granulocytes 0.9 % (0-0.5); % Lymphocytes 24.2 % (20.5-51.1); % Monocytes 7.2 % (1.7-9.3); % Neutrophils 65.4 % (42.2-75.2); Absolute Basophils 0.1 10^3/uL (0-0.2); Absolute Eosinophils 0.2 10^3/uL (0-0.7); Absolute Immature Granulocytes 0.1 10^3/uL (0-0.05); Absolute Lymphocytes 2.3 10^3/uL (1.2-3.4); Absolute Monocytes 0.7 10^3/uL (0.1-0.6); Absolute Neutrophils 6.3 10^3/uL (1.4-6.5); Hematocrit 36.4 % (39.0-52.0); Hemoglobin 12.7 g/dL (13.0-18.0); Mean Corp Hgb Conc. 34.9 g/dL (33.0-37.0); Mean Corpuscular Hgb 30.7 pg (27.0-31.0); Mean Corpuscular Volume 87.9 fL (80.0-94.0); Nucleated Red Blood Cells % 0 % (-); Platelet Count 247 10^3/uL (130-400); Red Blood Cell Count 4.14 10^6/uL (4.70-6.10); Red Cell Dist. Width 13.9 % (11.5-14.5); White Blood Cell Count 9.7 10^3/uL (4.8-10.8)
[2024-06-08 16:44] LABS: Lactic Acid 1.3 mmol/L (0.7-2.0)
[2024-06-08 16:50] LABS: ALT (SGPT) < 10 U/L (0-50); AST (SGOT) 25 U/L (17-59); Albumin 3.7 g/dl (3.5-5.0); Alkaline Phosphatase 88 U/L (38-126); Blood Urea Nitrogen 17 mg/dl (9-20); Calcium 9.2 mg/dl (8.4-10.2); Carbon Dioxide 28 mmol/L (22-30); Chloride 98 mmol/L (98-107); Glucose 154 mg/dl (70-99); Potassium 3.9 mmol/L (3.5-5.1); Sodium 135 mmol/L (135-145); Total Bilirubin 0.4 mg/dl (0.2-1.3); eGFR > 60.00
--- NOTE | 2024-06-08 17:33 | EDRN ---
Dr. Rodriguez in to see pt.
--- NOTE | 2024-06-08 17:41 | ED.GENMED ---
History of Present Illness
General
Chief Complaint: Abdominal Pain
Source: patient and spouse
Time Seen by Provider: 06/08/24 17:27
History of Present Illness
History of Present Illness:
This patient is an 78-year-old male who was recently discharged from the hospital after having percutaneous repair of a juxtarenal AAA. This was an uneventful surgery the patient feels that he did well. Before he was discharged it was noted that
he had a right inguinal hernia. He was sent to see a general surgeon who assessed him and put him on the schedule to have this repaired in September. However, yesterday, patient noted discomfort at the right inguinal hernia area which continues
today. He has had intermittent nausea but denies vomiting, diarrhea, constipation. His last bowel movement was yesterday. He denies abdominal pain, fever, chills, chest pain, shortness, bleeding, or other complaints.
Past History
Past History
ED Past Medical History: Arrthythmia (WPW), COPD, CVA, GERD, HTN, Hypercholesterolemia, Psychiatric (MDD) and Other (osteoarthitis, chronic low back pain/narcotic dependent)
ED Past Surgical History: Cardiac (Ablation for WPW), Urological (Prostatectomy) and Other (Hernia repair)
Social History
Tobacco: Smoker
Alcohol: Daily (Wine)
Personal:
Living: with family
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
Family History
Family History: Other (reviewed and non-contributory)
Phy Exam
Physical Exam
Physical Exam:
GENERAL: Alert , in no apparent distress
EYE: pupils equal and reactive
NECK: Supple, no significant adenopathy.
ENT: o/p clr, mmm.
CARDIAC: Regular rate and rhythm .
LUNGS: Equal breath sounds bilaterally, no acute respiratory distress, occasional wheezing noted
ABDOMEN: Soft, without focal tenderness, no r/g, umbilical hernia noted without overlying skin changes, nontender. Right inguinal area noted with obvious hernia without overlying skin changes, mild to moderately tender to palpation
NEUROLOGICAL: Alert and oriented, no focal neuro deficits
SKIN: Warm and dry, skin intact.
MUSCULOSKELETAL: No edema, well perfused.
PSYCH: Normal and appropriate interaction.
Course
Orders/Labs/Results
Orders:
Orders
06/08/24 16:24
Complete Blood Count/With Diff Urgent
Comprehensive Metabolic Panel Urgent
Lactate Level [Lactic Acid] Urgent
06/08/24 17:40
Morphine Sulfate 4 mg IV NOW STA
06/08/24 18:49
CT Abd/Pel (IV only)-DH only Urgent
Comment:
Reason For Exam: r inguinal hernia
Abnormal Lab Results
06/08/24
16:24
RBC 4.14 L 10^6/uL
(4.70-6.10)
Hgb 12.7 L g/dL
(13.0-18.0)
Hct 36.4 L %
(39.0-52.0)
Abs Immat Gran (auto) 0.1 H 10^3/uL
(0-0.05)
Absolute Monos (auto) 0.7 H 10^3/uL
(0.1-0.6)
Immature Gran % 0.9 H %
(0-0.5)
Glucose 154 H mg/dl
(70-99)
Total Protein 6.0 L g/dl
(6.3-8.2)
06/08/24 16:24
06/08/24 16:24
Vital Signs
Initial and Last Documented VS:
Initial Vital Signs
Temp Pulse Resp BP Pulse Ox
97.5 F 51 16 108/77 93
06/08/24 16:15 06/08/24 16:15 06/08/24 16:15 06/08/24 16:15 06/08/24 16:15
Last Documented Vital Signs
Temp Pulse Resp BP Pulse Ox
97.5 F 97 16 121/84 97
06/08/24 16:15 06/08/24 18:00 06/08/24 18:00 06/08/24 18:00 06/08/24 18:00
*Critical Care Note
Total Time (30-74mins, 75-104mins- exclusive of procedures): Not Applicable
Update Note
Update Note:
Patient presents to the Emergency Department with ____right groin swelling and pain
Number and Complexity of Problems Addressed at the Encounter
� Chronic conditions affecting care:
� Acute Exacerbation and/or Progression of Chronic Illness:
� Differential Diagnosis includes: But not limited to incarcerated hernia, bowel obstruction, strangulated hernia, etc. etc.
Amount and/or Complexity of Data to be Reviewed and Analyzed
� I performed an independent evaluation of and my interpretation is:
EKG:
CT:1).There is right inguinal hernia measuring approximately 2 x 3.5 x 5.5 cm in AP, transverse and craniocaudal dimensions.
No bowel is contained within the hernia.
2). There is a 3 cm low-density (10 Hounsfield unit) thin-walled fluid collection in the right hernia (the possibility that this is right testicle is considered)
3). There is focal thickening of the anterior aspect of the right side of the urinary bladder tethered at the hernia. Given the findings on the prior study, this wall thickening and tethering is likely inflammatory rather than neoplastic
4). Aortobiiliac stent
5). Right-sided renal cyst
6). Diverticuli are present in the colon with no CT evidence of diverticulitis
7). Stable old 80% compression fracture of L2 previously treated with vertebroplasty
8). 3 cm umbilical hernia which does not contain bowel.
Electronically signed by Jalil Man MD, 06/08/2024 9:01 PM
Xrays:
Laboratory Studies: Generally unremarkable
Other:
� Review of other/old records reveals: Discharge summary reviewed from patient's recent admission for aortic stent graft repair of juxtarenal AAA
� Clinical information was obtained by an independent historian: who is bedside
� Prescriptions/Medications Considered but not given:
� Further testing considered but not performed:
Risk of Complications and/or Morbidity or Mortality of Patient Management
� Social determinants of health affecting care:
� Discussion with other providers (PCP, Hospitalists, Consultants, etc):
� Escalation of care including admission/observation vs risk of discharge considered: 5:44 PM patient laid supine, ice pack applied to the area, will medicate and attempt reduction bedside.
reduction performed at bedside by me, felt about 90% reduction with ?small area residual swelling. No longer tender. No v/d etc. Pt comfortable. SEnt for CT...results noted and somewhat unclear to me...d/w general surgery (Maynor) and urology
(Justo). Uro does not feel this represents testicle, and testicle seen not torsed or otherwise abnl. I agree as I visualize testicle in scrotum. Surgery notes no action needed at this time re:hernia.
Pt will require close f/u. D/w pt and precautions, import of f/ua nd reasons to rted.
ED Attending Note
-
Portions of this chart may have been created with voice recognition software.� Occasional wrong word or��sound alike� substitutions may have occurred due to the inherent limitations of voice recognition software.
Discharge Plan
Departure
Patient Disposition: Home (Routine Discharge)
Date of Disposition: 06/08/24
Time of Disposition: 22:22
Patient with high blood pressure during this ER visit?: Yes
Condition: Good
Discharge Problem:
Hernia
Instructions: Groin Hernia (DC), BLOOD PRESSURE
Prescriptions:
No Action
atorvastatin 10 MG tablet
10 mg PO QPM
lisinopril 10 MG tablet
10 mg PO DAILY
omeprazole 20 MG capsule,delayed release(DR/EC)
20 mg PO DAILY
oxycodone-acetaminophen 10-325 mg Tablet
1 tab PO Q6HPRN PRN (Reason: SEVERE PAIN)
carbidopa-levodopa 25-100 mg tablet extended release
1 tab PO DAILY
carbidopa-levodopa 25-100 mg tablet extended release
2 tab PO HS
levalbuterol tartrate 45 mcg/actuation HFA aerosol inhaler
1 puff INHALATION R Q4HPRN PRN (Reason: SOB)
paroxetine HCl 10 mg Tablet
10 mg PO DAILY
azithromycin 250 mg Tablet
250 mg PO DAILY
levalbuterol HCl 1.25 mg/3 mL Solution For Nebulization
1.25 mg INHALATION Q4HPRN PRN (Reason: SOB/wheezing)
duloxetine 30 mg Capsule,Delayed Release(Dr/Ec)
30 mg PO DAILY
duloxetine 30 mg Capsule, Delayed Rel Sprinkle
60 mg PO HS
guaifenesin [Mucinex] 600 mg tablet extended release 12hr
600 mg PO DAILY
Trelegy Ellipta 100-62.5-25 mcg Blister With Device
1 inh INHALATION DAILY
multivitamin Tablet
1 tab PO DAILY
albuterol sulfate 2.5 mg /3 mL (0.083 %) Solution For Nebulization
2.5 mg INHALATION Q6HPRN PRN (Reason: SOB/WHEEZE)
fluticasone propionate 50 mcg/actuation [place],Suspension
2 spray INTRANASAL DAILY
prednisone 10 mg Tablet
See Taper PO DAILY 14 Days Qty: 14 0RF
Taper: Prednisone DC Starting at 50 mg daily
50 mg Daily for 2 Days and 0 Hour
40 mg Daily for 3 Days and 0 Hour
30 mg Daily for 3 Days and 0 Hour
20 mg Daily for 3 Days and 0 Hour
10 mg Daily for 3 Days and 0 Hour
Rx Instructions:
TAPER: 50 mg daily for 2 Days; 40 mg daily for 3 Days; 30 mg daily for 3 Days; 20 mg daily for 3 Days; 10 mg daily for 3 Days
clopidogrel 75 mg Tablet
75 mg PO DAILY Qty: 90 0RF
nicotine 21 mg/24 hr Patch 24 Hour
21 mg transdermal DAILY Qty: 7 0RF
aspirin 81 mg Tablet,Chewable
81 mg PO DAILY Qty: 90 0RF
Referrals:
Pete Segura MD [Active] - Follow up in 2-3 days
Facundo Carreon MD [Family Provider] -
Activity Restrictions/Additional Instructions:
PLEASE AVOID ANY ACTIVITIES THAT WILL INCREASE THE PRESSURE IN YOUR ABDOMINAL AREA, EX LIFTING, EX STRAINING.
YOU HAVE CAT SCAN FINDINGS THAT REQUIRE CLOSE FOLLOW UP. PLEASE SEE YOUR DOCTOR THIS WEEK!
IF YOU DEVELOP RECURRENT/NEW PAIN, SWELLING, FEVER, VOMITING, OR OTHER WORRISOME SIGNS, GO TO THE ER IMMEDIATELY!
Interventions
Interventions:
*Risk Screen - Suicide Last Done: 06/08/24 16:15
*General Assessment Last Done: 06/08/24 16:15
*Neglect/Abuse Screening Last Done: 06/08/24 16:15
ED- Fall Risk Assessment Last Done: 06/08/24 18:10
*ED COVID-19 Vaccine History Last Done: 06/08/24 16:15
YT-Tdulfl-Rlcnfxnutj Assessment Last Done: 06/08/24 18:08
Discharge Date and Time
Print Language: TAMAZIGHT
[2024-06-08 18:00] VITALS: BP 121/84
[2024-06-08] MEDS: MORPHINE SULFATE 4 MG IV (18:00)
[2024-06-08 18:06] VITALS: BMI 23.1
--- NOTE | 2024-06-08 18:48 | EDRN ---
Dr. Rodriguez was in to attempt to reduce R hernia but states she was only able to partially reduce it and is ordering a CT at this time.
[2024-06-08 22:36] VITALS: BP 141/80
== END 2024-06-08 22:45 | disposition home or self-care (01) ==
LOC: EMR 16:10
PROVIDERS: Physician Assistant; EMERGENCY PHYSICIAN Emergency Medicine; FAMILY PHYSICIAN Family Medicine
DX: K40.90 Unilateral inguinal hernia, without obstruction or gangrene, not specified as recurrent (principal); K42.9 Umbilical hernia without obstruction or gangrene; I10 Essential (primary) hypertension; F17.200 Nicotine dependence, unspecified, uncomplicated
CPT/HCPCS: 99285; 96374; 74177; 80053; 83605; 85025; Q9967

== ENCOUNTER 2024-06-26 06:45 | Inpatient (IN) | payer OTHER, SELFPAY ==
[2024-06-25 19:09] VITALS: BP 132/86
--- NOTE | 2024-06-25 19:55 | ED.GENMED ---
History of Present Illness
General
Chief Complaint: Musculo-Skeletal Complaint
Time Seen by Provider: 06/25/24 19:55
History of Present Illness
History of Present Illness:
HPI: The patient came in from home by ambulance as a right knee felt unsteady and back pain which is chronic but acutely worsened. He came in by EMS because he 'cannot walk'. At rest, he reports no pain but after we got him up to walk a little bit
he did have some vague back and knee discomfort. He continues to smoke. He has had AAA repair in May and is scheduled to have a hernia repair next month.
EXAM:
GENERAL: The patient appears very weak and debilitated
HEENT: Moist oral mucosa
CARDIOVASCULAR: No murmurs, normal heart rate, regular rhythm, No chest wall tenderness
PULMONARY: No respiratory distress, breath sounds are equally decreased with slight tachypnea which is likely chronic related to COPD he continues to smoke
ABDOMEN: Soft with no peritoneal signs, no tenderness, there is a small hernia in the right inguinal ring
NEUROLOGIC: Good strength all extremities, no coordination deficits
PSYCHIATRIC: Appropriate mental status, normal insight and judgement, however he appears somewhat upset at times and he also appears somewhat confused at times
EXTREMITIES: Nontender, no edema, moves all extremities equally, the active range of motion is fairly good in the lower extremities with no bony tenderness
SKIN: Scattered areas of ecchymosis with 1 area of more acute bleeding that is resolved just lateral to the left knee
TIME OF INITIAL ENCOUNTER: 8 PM
NUMBER AND COMPLEXITY OF PROBLEMS ADDRESSED AT THE ENCOUNTER
� Chronic conditions affecting care: COPD, chronic back pain, AAA, WPW, high blood pressure, hyperlipidemia, diverticular disease, GERD
� Acute Exacerbation and/or Progression of Chronic Illness:
� Differential Diagnosis includes:
AMOUNT AND/OR COMPLEXITY OF DATA TO BE REVIEWED AND ANALYZED
� I performed an independent evaluation of and my interpretation is:
EKG:
CT:
X-rays: X-rays of both knees unremarkable and chest x-ray unremarkable
Laboratory Studies: Mild leukocytosis noted but otherwise labs unremarkable
Other:
� Review of other/old records: I reviewed discharge summary from when he was here with a AAA from May
� Clinical information was obtained by an independent historian: I reviewed the transfer of care form by EMS which med list includes oxycodone
� Prescriptions/Medications Considered but not given:
� Further testing considered but not performed:
RISK OF COMPLICATIONS AND/OR MORBIDITY OR MORTALITY OF PATIENT MANAGEMENT
� Social determinants of health affecting care: Lives at home
� Discussion with other providers: Hospitalist, Dr. Sivler for admission at 11:30 PM
� Escalation of care including admission/observation vs risk of discharge considered: I did attempt to have the patient walk in the emergency department. He struggled with getting up and I did assist him to the standing position
however he could barely take a step. I do not feel that he can safely be discharged to home at this time. On reassessment 11:30 PM, the patient appears somewhat more confused.
Past History
Past History
ED Past Medical History: Arrthythmia (WPW), COPD, CVA, GERD, HTN, Hypercholesterolemia, Psychiatric (MDD) and Other (osteoarthitis, chronic low back pain/narcotic dependent)
ED Past Surgical History: Cardiac (Ablation for WPW), Urological (Prostatectomy) and Other (Hernia repair)
Social History
Tobacco: Smoker
Alcohol: Daily (Wine)
Personal:
Living: with family
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
Family History
Family History: Other (reviewed and non-contributory)
Phy Exam
Physical Exam
Physical Exam:
See HPI
Course
Orders/Labs/Results
Orders:
Orders
06/25/24 20:09
CR Knee - Left 4 Or More View* Urgent
Comment:
Reason For Exam: fall weak
CR Knee- Right 4 Or More View* Urgent
Comment:
Reason For Exam: fall weak
06/25/24 21:12
Complete Blood Count/With Diff Urgent
Comprehensive Metabolic Panel Urgent
TSH Reflex To Free T4 Urgent
06/25/24 21:41
CR Chest - 2 Views Urgent
Comment:
Reason For Exam: hypoxia
Abnormal Lab Results
06/25/24
21:12
WBC 12.5 H 10^3/uL
(4.8-10.8)
RBC 4.27 L 10^6/uL
(4.70-6.10)
MCH 31.6 H pg
(27.0-31.0)
Abs Immat Gran (auto) 0.1 H 10^3/uL
(0-0.05)
Absolute Neuts (auto) 9.5 H 10^3/uL
(1.4-6.5)
Absolute Monos (auto) 0.8 H 10^3/uL
(0.1-0.6)
Immature Gran % 0.7 H %
(0-0.5)
Neutrophils % 75.9 H %
(42.2-75.2)
Lymphocytes % 16.3 L %
(20.5-51.1)
BUN 24 H mg/dl
(9-20)
Total Protein 6.2 L g/dl
(6.3-8.2)
06/25/24 21:12
06/25/24 21:12
Vital Signs
Initial and Last Documented VS:
Initial Vital Signs
Temp Pulse Resp BP Pulse Ox
98.2 F 92 20 132/86 91
06/25/24 19:09 06/25/24 19:09 06/25/24 19:09 06/25/24 19:09 06/25/24 19:09
Last Documented Vital Signs
Temp Pulse Resp BP Pulse Ox
98.2 F 105 24 126/85 91
06/25/24 19:09 06/25/24 22:00 06/25/24 22:00 06/25/24 22:00 06/25/24 19:09
*Critical Care Note
Total Time (30-74mins, 75-104mins- exclusive of procedures): Not Applicable
ED Attending Note
-
Portions of this chart may have been created with voice recognition software.� Occasional wrong word or��sound alike� substitutions may have occurred due to the inherent limitations of voice recognition software.
Discharge Plan
Departure
Patient Disposition: Admit
Date of Disposition: 06/25/24
Time of Disposition: 23:50
Presentation/result/management discussed w/ accepting MD/DO: Hospitalist
Discharge Problem:
Ambulatory dysfunction
Interventions
Interventions:
*Risk Screen - Suicide Last Done: 06/25/24 19:09
*General Assessment Last Done: 06/25/24 19:09
*Neglect/Abuse Screening Last Done: 06/25/24 19:09
*ED COVID-19 Vaccine History Last Done: 06/25/24 20:02
ED-Musculoskeletal Assessment Last Done: 06/25/24 20:02
[2024-06-25 21:14] VITALS: BP 137/84
[2024-06-25 21:15] VITALS: BMI 23.2
[2024-06-25 21:22] LABS: % Basophils 0.4 % (0-2); % Eosinophils 0.6 % (0-6); % Immature Granulocytes 0.7 % (0-0.5); % Lymphocytes 16.3 % (20.5-51.1); % Monocytes 6.1 % (1.7-9.3); % Neutrophils 75.9 % (42.2-75.2); Absolute Basophils 0.1 10^3/uL (0-0.2); Absolute Eosinophils 0.1 10^3/uL (0-0.7); Absolute Immature Granulocytes 0.1 10^3/uL (0-0.05); Absolute Monocytes 0.8 10^3/uL (0.1-0.6); Absolute Neutrophils 9.5 10^3/uL (1.4-6.5); Hematocrit 39.7 % (39.0-52.0); Hemoglobin 13.5 g/dL (13.0-18.0); Mean Corpuscular Hgb 31.6 pg (27.0-31.0); Mean Platelet Volume 9.6 fL (7.4-10.4); Nucleated Red Blood Cells % 0 % (-); Platelet Count 168 10^3/uL (130-400); Red Blood Cell Count 4.27 10^6/uL (4.70-6.10); Red Cell Dist. Width 14.1 % (11.5-14.5); White Blood Cell Count 12.5 10^3/uL (4.8-10.8)
[2024-06-25 21:44] LABS: ALT (SGPT) 14 U/L (0-50); AST (SGOT) 26 U/L (17-59); Albumin 3.9 g/dl (3.5-5.0); Alkaline Phosphatase 90 U/L (38-126); Blood Urea Nitrogen 24 mg/dl (9-20); Calcium 9.7 mg/dl (8.4-10.2); Carbon Dioxide 26 mmol/L (22-30); Chloride 99 mmol/L (98-107); Estimated Creatinine Clearance 53 ml/min; Glucose 99 mg/dl (70-99); Potassium 4.3 mmol/L (3.5-5.1); Sodium 137 mmol/L (135-145); Total Bilirubin 0.6 mg/dl (0.2-1.3); Total Protein 6.2 g/dl (6.3-8.2); eGFR > 60.00
[2024-06-25 22:00] VITALS: BP 126/85
[2024-06-25 22:16] LABS: TSH Reflex To Free T4 1.04 uIU/ml (0.47-4.68)
[2024-06-26] VITALS (8 sets, daily range): BP systolic 97–146; BP diastolic 66–88; PULSE 98–119; O2SAT 98–100; BMI 21.6; BMI 21.7
--- NOTE | 2024-06-26 00:20 | HPS.HSE ---
Family Physician
-
Family Physician: Facundo Carreon
Chief Complaint
-
Lower extremity weakness and ambulatory dysfunction
History of Present Illness
This is a 78-year-old with past medical history of COPD not on home O2, Parkinson's, PAD, AAA s/p repair in March, presenting to the emergency department with inability to ambulate today following several weeks of worsening weakness and weight loss.
According to spouse the patient has a history of low back pain secondary to vertebral rupture for which he has been seeing specialist for some time. Was supposed to get physical therapy but has had multiple hospitalizations since then. He
apparently had abdominal aortic aneurysm without rupture that was repaired in March and since then the patient has been having weight loss and weakness. He denies having any numbness or tingling. He denies any incontinence of the bladder or bowel.
He denies any constipation. He denies any diarrhea. The patient has a reduced appetite. He reports that he had been well and in his usual state of health up until today. He reports that there has been no cough fevers or chills. No known sick
contacts. No falls or injuries.
He reports that today as he was standing and about to turn around he twisted his right knee which appeared to give out and immediately his left knee also gave out. He was on the floor in his kitchen but did not hit his head. He did not actually
fall in atraumatic fashion. He waited he was unable to get up on his own. When EMS arrived they were able to stand him up and was able to stand but otherwise he could not get up. The spouse has noted also the patient has with weakness from the
proximal hips for some time.
In the ED the patient was afebrile hemodynamically stable and in no acute distress. He was satting at 90% on room air. His chest x-ray shows no acute infiltrates. His white count was 12,000 with a normal hemoglobin and platelet count.
Chemistries were all within normal limits. He had x-rays of the right and left knee which showed no acute osseous processes.
Medical History
Past Medical History
Past Medical History: Reports COPD, GERD and Hypercholesterolemia
Additional Past Medical History:
AAA s/p repair
PAD
Past Surgical History: Reports Other (AAA repair)
Social History
Tobacco: Smoker
Alcohol: None
Drug: None
Personal:
Living: With Family
Employment: Retired
Family History
Family History: Not pertinent
Allergies / Home Medications
Allergies reflects when Allergies were last updated in [facility].
Home Medications with original date entered in [facility]
Allergy/Medication List:
Allergies
Allergy/AdvReac Type Severity Reaction Status Date / Time
mold Allergy sinus Verified 05/07/24 07:07
congestion
Home Medications
atorvastatin 10 mg tablet 10 mg PO QPM High cholesterol 12/03/20
lisinopril 10 mg tablet 10 mg PO DAILY Blood pressure 12/03/20
omeprazole 20 mg capsule,delayed release 20 mg PO DAILY Gastrointestinal issue 12/03/20
oxycodone-acetaminophen 10 mg-325 mg tablet 1 tab PO Q6HPRN PRN SEVERE PAIN 07/09/22
carbidopa ER 25 mg-levodopa 100 mg tablet,extended release 1 tab PO DAILY Neurological Condition 09/20/22
carbidopa ER 25 mg-levodopa 100 mg tablet,extended release 2 tab PO HS Neurological Condition 09/20/22
levalbuterol tartrate 45 mcg/actuation aerosol inhaler 1 puff inhalation R Q4HPRN PRN SOB 09/20/22
azithromycin 250 mg tablet 250 mg PO DAILY COPD 05/07/24
duloxetine 30 mg capsule,delayed release 30 mg PO DAILY RLS 05/07/24
duloxetine 30 mg capsule,delayed release sprinkle 60 mg PO HS RLS 05/07/24
guaifenesin 600 mg tablet, extended release 12 hr (Mucinex) 600 mg PO DAILY 05/07/24
levalbuterol HCl 1.25 mg/3 mL solution for nebulization 1.25 mg inhalation Q4HPRN PRN SOB/wheezing 05/07/24
paroxetine HCl 10 mg tablet 10 mg PO DAILY Mental Health/Anxiety 05/07/24
albuterol sulfate 2.5 mg/3 mL (0.083 %) solution for nebulization 2.5 mg inhalation Q6HPRN PRN SOB/WHEEZE 05/10/24
aspirin 81 mg chewable tablet 81 mg PO DAILY #90 tabs 05/10/24
clopidogrel 75 mg tablet 75 mg PO DAILY #90 tabs 05/10/24
fluticasone fur. 100 mcg-umeclid 62.5 mcg-vilant 25 mcg inhalat.powder (Trelegy Ellipta) 1 inh inhalation DAILY Lung/Breathing Issues 05/10/24
fluticasone propionate 50 mcg/actuation nasal spray,suspension 2 spray intranasal DAILY Allergies 05/10/24
multivitamin 1 tab PO DAILY 05/10/24
nicotine 21 mg/24 hr daily transdermal patch 21 mg transdermal DAILY #7 ea 05/10/24
prednisone 10 mg tablet See Taper PO DAILY 14 days #14 tabs 05/10/24
Review of Systems
-
History Source: Patient
Constitutional: Reports Weight Loss
EENT: Reports No Symptoms
Respiratory: Reports No Symptoms
Cardiac: Reports No Symptoms
Abdomen/GI: Reports No Symptoms
: Reports No Symptoms
Musculoskeletal: Reports No Symptoms
Skin: Reports No Symptoms
Neurological: Reports Weakness
Endocrine: Reports No Symptoms
Hematologic/Lymphatic: Reports No Symptoms
Psych: Reports No Symptoms
Physical Exam
Vital Signs
Vital Signs
Temp Pulse Resp BP Pulse Ox
98.2 F 105 24 126/85 91
06/25/24 19:09 06/25/24 22:00 06/25/24 22:00 06/25/24 22:00 06/25/24 19:09
Physical Exam
General: No Apparent Distress, Conversant and Appears Chronically Ill
HEENT: NormoCephalic, Anicteric, Moist mucous membranes and Atraumatic
Respiratory: Clear
Cardiac: S1/S2 and Regular Rhythm
Breast: Deferred by me
GI: Soft, Non Tender, Non Distended and Normal Bowel Sounds
Rectal: Deferred by Provider
Genito-urinary: Deferred by me
Musculoskeletal: No Clubbing, No Cyanosis and No Edema
Skin: Warm
Neuro: AO x 3
Hematologic/Lymphatic: No Lymphadenopathy
Psych: Calm
Laboratory Results
-
06/25/24 21:12
06/25/24 21:12
Laboratory Results
Total Bilirubin 0.6 mg/dl (0.2-1.3) 06/25/24 21:12
AST 26 U/L (17-59) 06/25/24 21:12
ALT 14 U/L (0-50) 06/25/24 21:12
Alkaline Phosphatase 90 U/L (38-126) 06/25/24 21:12
Data Reviewed
-
Diagnostic Radiology: Image Personally Visualized and interpreted and Report Reviewed by me
Lab Data: Labs Reviewed by me
Old Records: Reviewed
Impression/Plan
-
IMPRESSION:
78-year-old with history of COPD not on home O2 who presents to the emergency department with bilateral lower extremity weakness (reporting that his legs just gave out lowering himself to the floor and is unable to get up. Neurological exam is
intact without alarm signs such as bowel incontinence or bladder incontinence or constipation. Patient has a history of chronic back pain but denies any radicular signs such as pain shooting down his leg or numbness or tingling. On my exam he does
have bilateral proximal leg weakness and findings of muscle atrophy in the bilateral lower extremities.
PLAN:
1. Weakness -suspect acute on chronic weakness. The patient recently started on tizanidine 4 mg for his low back pain. He also had slight hypoxia but otherwise no other sick contacts. No urinary symptoms.
- admit to med surg
- u/a, covid testing
- gentle hydration
- check cpk
- hold tizanidine
- PT OT eval in am.
2. COPD - Chronic COPD with mild hypoxia. 90% on RA. No wheeziing.
- patient on chronic azithro per pulm
- continue trelegy and prn albuterol
- mucinex daily
3. Restless leg.
- carbidopa levodopam 25-100 bid
- duloxetine 30 bid
4. PAD/AAA
- continue aspirin, plavix and low dose statin
-
DVT - PPX - lovenox sq
Code status - Full
[2024-06-26 01:56] LABS: COVID-19 Antigen Negative (Negative)
[2024-06-26] MEDS: LR 1000 IV (03:20)
[2024-06-26 07:31] LABS: Blood Urea Nitrogen 21 mg/dl (9-20); Calcium 9.6 mg/dl (8.4-10.2); Carbon Dioxide 24 mmol/L (22-30); Chloride 102 mmol/L (98-107); Creatine Phosphokinase 50 U/L (55-170); Estimated Creatinine Clearance 58 ml/min; Glucose 95 mg/dl (70-99); Potassium 4.3 mmol/L (3.5-5.1); Sodium 137 mmol/L (135-145); eGFR > 60.00
[2024-06-26] MEDS: SYMBICORT 160/4.5 MCG INHALER 2 PUFF INH ×2 (08:00→19:13)
[2024-06-26] MEDS: DUONEB 3 ML INH (08:04)
--- NOTE | 2024-06-26 08:36 | W.PN.HOSP.TC ---
Today's Communication/Plan
-
Treat as COPD exacerbation
PT/OT
F/w pulmonary recommendations
Has significant peripheral vascular disease, hard to get accurate oxygen reading
Assessment / Plan
Assessment / Plan
Physical Exam
General: No Apparent Distress, Conversant and Appears Chronically Ill
HEENT: Normocephalic, Anicteric, Moist mucous membranes and Atraumatic
Respiratory: limited with expiratory wheezes at bases.
Cardiac: S1/S2
GI: Soft, Non Tender, Non Distended
Genito-urinary: No hematuria
Musculoskeletal: No Clubbing, No Cyanosis and No Edema
Skin: Warm
Neuro: AO x 3, he followed commands
Psych: Calm
# Acute COPD exacerbation
Tobacco use
Pt admits to sob on and off recently
He was found to have hypoxia today, probably contributing to his weakness?
He denies cough
Will do IV Steroid
c/w Nebulizer
Consult Dr Concepcion( his primary striker off)
Will monitor
# Hx of low back pain
The patient was recently started on tizanidine 4 mg for his low back pain. No urinary symptoms.
- gentle hydration,w ill dc
- low normal cpk
- held tizanidine
- PT/OT
#Restless leg.
- carbidopa levodopa 25-100 bid
- duloxetine 30 bid
#. PAD/AAA
He continues to smoke
- continue aspirin, Plavix and low dose statin
-
DVT - PPX - lovenox sq
Code status - Full
Total time spent to see the patient, examine the patient on the floor, review data and lab results, discuss treatment plan with patient, nursing staff around 55 minutes
Anticipated Discharge: > 48 hours
Subjective/Interval History
-
Date of Service: June 26, 2024
He reports sob,
No cough\\
No chest pain
Objective Data
-
Labs:
Laboratory Results
06/25/24 06/26/24
21:12 06:58
WBC 12.5 H
Hgb 13.5
Hct 39.7
Plt Count 168
Sodium 137 137
Potassium 4.3 4.3
Chloride 99 102
Carbon Dioxide 26 24
BUN 24 H 21 H
Creatinine 0.9 0.8
Glucose 99 95
Calcium 9.7 9.6
Total Bilirubin 0.6
AST 26
ALT 14
Alkaline Phosphatase 90
Vital Signs:
Vital Signs
Temp Pulse Resp BP Pulse Ox
97.7 F 78 26 146/88 90
06/26/24 06:52 06/26/24 08:06 06/26/24 08:06 06/26/24 06:52 06/26/24 08:06
[2024-06-26 08:50] LABS: TSH 1.12 uIU/ml (0.47-4.68)
[2024-06-26] MEDS: ZESTRIL 10 MG PO (09:00)
[2024-06-26] MEDS: CYMBALTA DELAYED RELEASE 30 MG PO ×2 (09:00→20:44)
[2024-06-26] MEDS: ZITHROMAX 250 MG PO (09:00)
[2024-06-26] MEDS: PROTONIX 40 MG PO (09:00)
[2024-06-26] MEDS: MUCINEX 600 MG PO (09:00)
[2024-06-26] MEDS: NICODERM TRANSDERMAL 21 MG TRANSDERM (09:01)
[2024-06-26] MEDS: LOW STRENGTH ASPIRIN 81 MG PO (09:04)
[2024-06-26] MEDS: SINEMET CR 25-100 (EXTENDED RELEASE) 1 TABLET PO ×2 (09:04→20:44)
[2024-06-26] MEDS: PAXIL 10 MG PO (09:04)
[2024-06-26] MEDS: PLAVIX 75 MG PO (09:04)
[2024-06-26] MEDS: SOLU-MEDROL PF 40 MG IV ×2 (09:05→20:44)
[2024-06-26] MEDS: ROXICODONE 10 MG PO ×2 (09:10→17:32)
[2024-06-26 09:41] LABS: Urine Albumin 1+ (Neg - Trace); Urine Bilirubin Negative (Negative); Urine Character Clear (Clear); Urine Color Yellow; Urine Glucose Negative (Negative); Urine Ketone Trace (Negative); Urine Leukocyte Negative (Negative); Urine Nitrite Negative (Negative); Urine Occult Blood Negative (Negative); Urine Specific Gravity 1.025 (<1.030); Urine Urobilinogen Negative (Neg - 1+)
--- NOTE | 2024-06-26 09:45 | WOUNDNOTE ---
LAKSHMI RN NOTE: Asked to see patient for skin tears, found small one on R arm. Both arms and legs with multiple bruising no visible open ulcers. Will cancel consult, spoke to nurse Skinny and instructed to notify this credit underwriter if anything changes.
[2024-06-26 10:36] LABS: Urine Calcium Oxalate Crystals Seen; Urine White Cell 0-2 /HPF (0-5)
[2024-06-26 10:37] LABS: Urine Red Blood Cell None Seen /HPF (0-2)
--- NOTE | 2024-06-26 12:42 | CON.PUL ---
Consultation
Consultation Request
Date/Time Consultation Requested: 06/26/2024
Date/Time Consultation Performed: 06/26/2024
Requesting Provider: Dr. Felder
Performing Provider: Dr. Cricket Concepcion
Reason for Consultation: Exertional dyspnea/hypoxemia
Medical History
-
History of Present Illness:
78-year-old man with past medical history of severe COPD follows up with Dr. Concepcion, Parkinson disease, peripheral arterial disease, AAA repair in March 2024, presented to the emergency room unable to ambulate, progressive weakness and weight loss
over the last several weeks.
Patient does have history of chronic back pain. Patient has been losing weight after AAA repair last March.
Patient denied any cough, chills, phlegm production or wheezing.
Apparently prior admission he was found in the kitchen laying down. His knees gave out. No loss of consciousness.
He was found to be mildly hypoxemic down to 90%. Chest x-ray was clear.
White count of 12,000. We were consulted for shortness of breath and mild hypoxemia.
Past Medical History
Past Medical History: Other (See assessment and plan section)
Social History
Tobacco: Smoker
Allergies / Home Medications
Allergies
Allergy/AdvReac Type Severity Reaction Status Date / Time
mold Allergy sinus Verified 05/07/24 07:07
congestion
Home Medications
�Medication �Instructions �Recorded �Confirmed �Last Taken �Type
atorvastatin 10 mg tablet 10 mg PO QPM High cholesterol 12/03/20 06/26/24 2 Days Ago History
~06/24/24
lisinopril 10 mg tablet 10 mg PO DAILY Blood pressure 12/03/20 06/26/24 1 Day Ago History
~06/25/24
omeprazole 20 mg capsule,delayed 20 mg PO DAILY Gastrointestinal 12/03/20 06/26/24 1 Day Ago History
release issue ~06/25/24
oxycodone-acetaminophen 10 mg-325 1 tab PO Q6HPRN PRN SEVERE PAIN 07/09/22 06/26/24 1 Day Ago History
mg tablet ~06/25/24
carbidopa ER 25 mg-levodopa 100 mg 1 tab PO DAILY Neurological 09/20/22 06/26/24 2 Days Ago History
tablet,extended release Condition ~06/24/24
carbidopa ER 25 mg-levodopa 100 mg 2 tab PO HS Neurological Condition 09/20/22 06/26/24 1 Day Ago History
tablet,extended release ~06/25/24
levalbuterol tartrate 45 1 puff inhalation R Q4HPRN PRN SOB 09/20/22 06/26/24 05/06/24 20:00 History
mcg/actuation aerosol inhaler
azithromycin 250 mg tablet 250 mg PO DAILY COPD 05/07/24 06/26/24 1 Day Ago History
~06/25/24
duloxetine 30 mg capsule,delayed 30 mg PO DAILY RLS 05/07/24 06/26/24 1 Day Ago History
release ~06/25/24
duloxetine 30 mg capsule,delayed 60 mg PO HS RLS 05/07/24 06/26/24 2 Days Ago History
release sprinkle ~06/24/24
guaifenesin 600 mg tablet, 600 mg PO DAILY 05/07/24 06/26/24 1 Day Ago History
extended release 12 hr (Mucinex) ~06/25/24
levalbuterol HCl 1.25 mg/3 mL 1.25 mg inhalation Q4HPRN PRN 05/07/24 06/26/24 Unknown History
solution for nebulization SOB/wheezing
paroxetine HCl 10 mg tablet 20 mg PO DAILY Mental 05/07/24 06/26/24 1 Day Ago History
Health/Anxiety ~06/25/24
albuterol sulfate 2.5 mg/3 mL 2.5 mg inhalation Q6HPRN PRN 05/10/24 05/10/24 Unknown History
(0.083 %) solution for nebulization SOB/WHEEZE
aspirin 81 mg chewable tablet 81 mg PO DAILY #90 tabs 05/10/24 06/26/24 1 Day Ago Rx
~06/25/24
clopidogrel 75 mg tablet 75 mg PO DAILY #90 tabs 05/10/24 06/26/24 1 Day Ago Rx
~06/25/24
fluticasone fur. 100 mcg-umeclid 1 inh inhalation DAILY 05/10/24 06/26/24 1 Day Ago History
62.5 mcg-vilant 25 mcg Lung/Breathing Issues ~06/25/24
inhalat.powder (Trelegy Ellipta)
fluticasone propionate 50 2 spray intranasal DAILY Allergies 05/10/24 06/26/24 Unknown History
mcg/actuation nasal
spray,suspension
multivitamin 1 tab PO DAILY 05/10/24 06/26/24 1 Day Ago History
~06/25/24
nicotine 21 mg/24 hr daily 21 mg transdermal DAILY #7 ea 05/10/24 06/26/24 Unknown Rx
transdermal patch
Review of Systems
Vitals / Labs / Diagnostic Testing
Vital Signs
Temp Pulse Resp BP Pulse Ox
97.7 F 101 26 146/88 90
06/26/24 06:52 06/26/24 09:00 06/26/24 08:06 06/26/24 09:00 06/26/24 08:06
Lab Data
06/25/24 21:12
06/26/24 06:58
Diagnostic Testing:
Physical Exam
-
HEENT: Normocephalic
Cardiovascular: S1/S2
Respiratory: Clear and Non-Labored Respirations
GI: Soft and Non Distended
Neurology: Awake, Alert and Oriented
Skin: Warm
General: Comfortable
Assessment
-
78-year-old man with past medical history noted. Admitted with falling, weakness, weight loss, loss of appetite. Chronic back pain. Symptoms worsen after his abdominal aortic aneurysm repair. I was consulted on 06/26/2024 for mild hypoxemia and
shortness of breath.
Exertional dyspnea acute on chronic
Mild hypoxemic respiratory sufficiency-requiring 3 to 4 days.
Chest x-ray 06/25/2024: Showed no active cardiopulmonary disease. Minimal interstitial scarring in both lungs.
Weight loss/failure to thrive/generalized weakness
Conditions present prior admission:
Status post Infrarenal abdominal aortic aneurysm without rupture s/p FEVAR 05/07/2024 patient discharged from the hospital 05/11/2024.
Implanted pain management device (June 2017), TURP, back surgery, vertebroplasty
Chronic lower back pain
osteoporosis,
hyperlipidemia
colonic polyps
hypertension
depression
restless leg syndrome
history of pneumonia
scoliosis
history of broken vertebrae
COPD-severe severity per spirometry from 11/09/2023 (post-BD FEV1: 0.94L/39% predicted)
On chronic azithromycin for anti-inflammatory properties/levalbuterol HFA as needed/Trelegy
CT chest 05/10/2024: Reviewed. Moderate emphysema. No evidence for groundglass opacity. Fatty liver infiltration. No evidence for pulmonary nodules. Mild bilateral interstitial fibrosis.
TOBY intolerant to CPAP
lung nodules
tobacco use disorder
Echocardiogram 04/30/2024: Reviewed: Showed normal LVEF. Mild LVH. Mild aortic stenosis. Mild dilated ascending aorta.
Assessment and plan:
Worsening exertional dyspnea likely multifactorial with underlying advanced COPD/fibrosis/deconditioning/muscle mass loss.
Chest x-ray showed no acute abnormalities
There is no evidence for acute exacerbation of COPD.
-
Patient is on maximal medical therapy in the outpatient setting.
Loss expendable dosing patient of borderline hypoxemia down to 90%.
Patient has lost about 40 pounds in the last 6 months with significant muscle mass loss.
-
Does not appear toxic
There is no signs of infection
There is no lower extremity edema. Before the fall he was able to walk on a flat surface. Suspect he fell into the ground due to lack of muscle strength. Was not able to stand up on his own.
Not unreasonable to treat with short course of steroids.
No indication for antibiotic therapy
Continue with inhalers for now
As needed nebulizers
-
Difficult to obtain pulse oximeter readings due to severe peripheral vascular disease.
Will obtain home oxygen assessment-tomorrow morning.
If there is worsening hypoxemia will obtain lower extremity Dopplers.
My suspicion for thromboembolic disease is not very high but patient is high risk. Will follow closely.
-
Physical therapy/Occupational Therapy-Will need likely rehab after discharge.
-
Updated at the bedside 06/26/2024.
-
Will follow
--- NOTE | 2024-06-26 13:53 | RESPNOTE ---
Patient unsteady on feet does not feel comfortable walking long distances
Oxygen not in nares upon entering room bedsides saying ' it has been out at least 15 minutes.' 97-98% on RA while sitting.
Patient does ambulate to bathroom pulse ox --94% on ear when signal is good.
--- NOTE | 2024-06-26 16:30 | CM ---
Alert awake oriented patient who lives with his Shirley who lives in a 2 story home with 2 step to enter and bed and bathroom first floor. He is assisted in all activities of daily living by his . He is a smoker.He will need PT OT and
possible SNF [place]. At this time pt is refusing SNF. requesting SNF.Will need SNF auth.
DH VN hx / No SNF history
Ph[facility]acy [facility]
PCP DR Facundo Carreon
PLAN Needs PT OT possible SNF if accepted
[2024-06-26] MEDS: LOVENOX 40 MG SC (17:31)
[2024-06-26] MEDS: LIPITOR 10 MG PO (17:32)
[2024-06-26] MEDS: MIRALAX 17 GRAMS PO (17:40)
--- NOTE | 2024-06-27 03:08 | DOWNTIME ---
There was a [employer] Client Analytical Research Program Manager Downtime on 06/27/2024 from 0100 to 06/27/2024 at 0300. Downtime documentation of patient's care, including medication administrations, has been reconciled in the electronic record per guidelines. Refer to the
patient's paper chart under the miscellaneous tab to see printed paper medication records and downtime forms.
[2024-06-27 06:53] VITALS: BP 124/85
[2024-06-27] MEDS: SYMBICORT 160/4.5 MCG INHALER 2 PUFF INH ×2 (07:05→19:32)
--- NOTE | 2024-06-27 08:12 | PN.CDI ---
CDI
- -
CDI:
Physician Documentation Request
Admit Date: 06/26/24 06:45
Dear Doctor Bradford,
Patient admitted with acute COPD exacerbation.
06/26 Nursing skin assessment, 'Stage 1 sacral pressure injury, POA.'
Physician documentation of the type and location of wounds is required for compliant documentation. Based on the above clinical findings and your assessment, please provide the following in your progress note:
Type (etiology) of ulcer/wound:
- Pressure (decubitus) ulcer
- Other
- Unable to determine
For a pressure ulcer, please also include the stage* of the ulcer:
- Stage 1 - Skin intact, non-blanchable redness
- Stage 2 - Partial thickness loss of dermis, includes intact or open blister
- Stage 3 - Full thickness tissue not including bone, tendon or muscle
- Stage 4 - Full thickness tissue loss, including exposed bone, tendon or muscle
- Unstageable - Full thickness loss in which the base of the ulcer is covered by slough (yellow, henson, connor, green or brown) and/or eschar (henson, brown or black) in the wound bed.
- Unable to determine
Use of terms such as suspected, likely, concern for, or probable (associated with a specific diagnosis that is being evaluated, monitored, or treated as if it exists) are acceptable and can be coded in the inpatient setting, when documented at the
time of discharge.
Thank you,
Joanna AGUILAR,RN,CCDS
CDI Specialist
Available via [facility] text
Please use your independent medical judgment in providing your response.
*Source: National Pressure Ulcer Advisory Panel (NPUAP)
[2024-06-27] MEDS: PLAVIX 75 MG PO (08:34)
[2024-06-27] MEDS: PAXIL 10 MG PO (08:34)
[2024-06-27] MEDS: ZITHROMAX 250 MG PO (08:34)
[2024-06-27] MEDS: PROTONIX 40 MG PO (08:34)
[2024-06-27] MEDS: ZESTRIL 10 MG PO (08:34)
[2024-06-27] MEDS: LOW STRENGTH ASPIRIN 81 MG PO (08:34)
[2024-06-27] MEDS: SINEMET CR 25-100 (EXTENDED RELEASE) 1 TABLET PO ×2 (08:34→19:25)
[2024-06-27] MEDS: MUCINEX 600 MG PO (08:34)
[2024-06-27] MEDS: CYMBALTA DELAYED RELEASE 30 MG PO ×2 (08:34→19:25)
[2024-06-27] MEDS: NICODERM TRANSDERMAL 21 MG TRANSDERM (08:35)
[2024-06-27] MEDS: SOLU-MEDROL PF 40 MG IV ×2 (08:36→19:24)
[2024-06-27] MEDS: ROXICODONE 10 MG PO ×2 (08:44→15:20)
--- NOTE | 2024-06-27 10:33 | W.PN.HOSP.TC ---
Today's Communication/Plan
-
likely dc on Tuesday to SNF
c/w IV Steroid another day, might taper
c/w nebulizer treatments
Encourage use of nicotine patch
Precaution for sacral pressure ulcer
Assessment / Plan
Assessment / Plan
Physical Exam
General: No Apparent Distress, Conversant and Appears Chronically Ill
HEENT: Normocephalic, Anicteric, Moist mucous membranes and Atraumatic
Respiratory: limited with less expiratory wheezes at bases.
Cardiac: S1/S2
GI: Soft, Non Tender, Non Distended
Genito-urinary: No hematuria
Musculoskeletal: No Clubbing, No Cyanosis and No Edema
Skin: Warm
Neuro: AO x 3, he followed commands
Psych: Calm
# Acute COPD exacerbation
Tobacco use
There is clinical improvement, pt feels better
He reports willingness to quit smoking
c/w nebulizer and steroid therapy
f/w Dr Concepcion( his primary chief electrician), Appreciate help
# Moderate to severe malnutrition triggered by advanced COPD and PVD with continued tobacco use.
Consulted flame cutting supervisor
Pt might have a chance to rehab himself if he quit smoking and continues with his treatments.
# Hx of low back pain
The patient was recently started on tizanidine 4 mg for his low back pain. No urinary symptoms.
- gentle hydration,w ill dc
- low normal cpk
- held tizanidine
- PT/OT , recommended SNF
#Restless leg.
- carbidopa levodopa 25-100 bid
- duloxetine 30 bid
# Stage 1 sacral pressure injury, POA.'
Consult wound care
Encourage position change
#. PAD/AAA
He continues to smoke
- continue aspirin, Plavix and low dose statin
His vascular doctor is Dr Rodriguez.
-
DVT - PPX - lovenox sq
Code status - Full
Total time spent to see the patient, examine the patient on the floor, review data and lab results, discuss treatment plan with patient, nursing staff around 55 minutes
Anticipated Discharge: 24 - 48 hours
Subjective/Interval History
-
Date of Service: June 27, 2024
He feels better
No chest pain
Less sob
No headache
Objective Data
-
Vital Signs:
Vital Signs
Temp Pulse Resp BP Pulse Ox
98.4 F 102 18 124/85 95
06/27/24 06:53 06/27/24 08:34 06/27/24 07:10 06/27/24 08:34 06/27/24 07:10
I&O
06/26/24 06/27/24 06/28/24
06:59 06:59 06:59
Intake Total 720 / 720
Output Total 200 / 200
Balance 520 / 520
--- NOTE | 2024-06-27 11:59 | W.PN.PUL3 ---
Today's Communication / Plan
-
Continue IV corticosteroid for today, transition to prednisone with a slow taper tomorrow over the next 10 to 14 days.
Continue physical therapy
Continue inhalers
Continue as needed nebulizer
Placement ongoing-hopefully discharge in 24 hours
Assessment
-
78-year-old man with past medical history noted. Admitted with falling, weakness, weight loss, loss of appetite. Chronic back pain. Symptoms worsen after his abdominal aortic aneurysm repair. I was consulted on 06/26/2024 for mild hypoxemia and
shortness of breath.
Exertional dyspnea acute on chronic
Mild hypoxemic respiratory sufficiency-requiring 3 to 4 days.
Chest x-ray 06/25/2024: Showed no active cardiopulmonary disease. Minimal interstitial scarring in both lungs.
Weight loss/failure to thrive/generalized weakness
Conditions present prior admission:
Status post Infrarenal abdominal aortic aneurysm without rupture s/p FEVAR 05/07/2024 patient discharged from the hospital 05/11/2024.
Implanted pain management device (June 2017), TURP, back surgery, vertebroplasty
Chronic lower back pain
osteoporosis,
hyperlipidemia
colonic polyps
hypertension
depression
restless leg syndrome
history of pneumonia
scoliosis
history of broken vertebrae
COPD-severe severity per spirometry from 11/09/2023 (post-BD FEV1: 0.94L/39% predicted)
On chronic azithromycin for anti-inflammatory properties/levalbuterol HFA as needed/Trelegy
CT chest 05/10/2024: Reviewed. Moderate emphysema. No evidence for groundglass opacity. Fatty liver infiltration. No evidence for pulmonary nodules. Mild bilateral interstitial fibrosis.
TOBY intolerant to CPAP
lung nodules
tobacco use disorder
Echocardiogram 04/30/2024: Reviewed: Showed normal LVEF. Mild LVH. Mild aortic stenosis. Mild dilated ascending aorta.
Assessment and plan:
Worsening exertional dyspnea likely multifactorial with underlying advanced COPD/fibrosis/deconditioning/muscle mass loss.
Chest x-ray showed no acute abnormalities
There is no evidence for acute exacerbation of COPD.
-
Patient is on maximal medical therapy in the outpatient setting.
No significant oxygen requirements on home oxygen testing.
Patient has lost about 40 pounds in the last 6 months with significant muscle mass loss. Likely contributing to symptoms and shortness of breath.
-
Does not appear toxic
There is no signs of infection
There is no lower extremity edema. Before the fall he was able to walk on a flat surface. Suspect he fell into the ground due to lack of muscle strength. Was not able to stand up on his own.
Continue with IV corticosteroids for today. Transition to prednisone tomorrow 06/28/2024 with taper within the next 10 to 14 days. Usually he feels better with it.
No indication for antibiotic therapy
Continue with inhalers for now
Continue low-dose azithromycin for anti-inflammatory properties
As needed nebulizers
-
Oxygen assessment by respiratory therapist determined the patient does not require supplemental oxygen. Could not walk for longer distance due to lower extremity weakness
-
Physical therapy/Occupational Therapy-Will need likely rehab after discharge.
-
Smoking cessation strongly encouraged-
-
Updated at the bedside 06/26/2024 and 06/27/2024
-
Will follow
-
Hopefully discharge planning in the next 24 hours
Subjective Data
-
Date of Service:
Date of Service: June 27, 2024
Objective Data
Data Reviewed
Vital Signs / I&O / Oxygen:
Vital Signs
Temp Pulse Resp BP Pulse Ox
98.4 F 102 18 124/85 95
06/27/24 06:53 06/27/24 08:34 06/27/24 07:10 06/27/24 08:34 06/27/24 07:10
Intake and Output
06/26/24 06/27/24 06/28/24
06:59 06:59 06:59
Intake Total 720 / 720
Output Total 200 / 200
Balance 520 / 520
SaO2 95
Nasal Cannula flow liters per 4
minute
Labs/Micro/Reports
Lab Data
06/25/24 21:12
06/26/24 06:58
Microbiology
06/26/24 06:20 Nose MRSA Screen - Final
No Methicillin Resistant Staphylococcus aureus isolated.
--- NOTE | 2024-06-27 13:15 | WOUNDNOTE ---
[facility] RN note: Patient admitted with ambulation dysfunction. Plan is SNF when discharged. present.
See H&P for complete history.
PMH: PAD (follows Dr. Rodriguez), AAA repair with stent, neuropathy, back pain, CVA or TIA, COPD, smoker, venous stasis, prostatic hypertrophy, MOHEGAN, depression.
Wound Location and type/assessment: Patient admitted with: stage 1 coccyx pressure injury with L coccyx dry callus. No drainage. Heels blanchable red/purple. L lateral ankle newly healed small ulcer. R lateral ankle, L Achilles with small dry
scabbed abrasion. Small skin tears R arm covered with small band aids.
Appetite: good.
Pressure redistribution devices in place: [employer]ac[employer] Accumax. Patient stood self with walker during skin check.
Plan: Silicone border foam maintained on coccyx. Protective foam dressing maintained on heels. Protective silicone border foam applied to L lateral ankle and R Achilles. Air chair cushion given. Instructed patient pressure injury prevention
measures.
Will confirm orders with hospitalist and update nurse.
Care plan to be updated, discussed with RN Skinny. Will sign off. Call if needed.
--- NOTE | 2024-06-27 13:15 | WOUNDNOTE ---
L HEEL (BLANCHABLE)/ACHILLES
[2024-06-27 15:02] VITALS: BP 105/62
[2024-06-27] MEDS: SENOKOT-S 1 TABLET PO (15:21)
--- NOTE | 2024-06-27 16:37 | CM ---
PT OT indicates SNF [place]
Spoke with pt and .
PACC data reviewed.
[facility] referral placed as requested.
Will need auth.
PLAN SNF after located and auth obtained
[2024-06-27] MEDS: LIPITOR 10 MG PO (17:53)
[2024-06-27] MEDS: LOVENOX 40 MG SC (17:53)
[2024-06-27] MEDS: MIRALAX 17 GRAMS PO (19:37)
[2024-06-27 23:02] VITALS: BP 129/88
[2024-06-28 07:05] VITALS: BP 131/80
[2024-06-28] MEDS: SYMBICORT 160/4.5 MCG INHALER 2 PUFF INH ×2 (07:24→19:47)
[2024-06-28] MEDS: MUCINEX 600 MG PO (08:18)
[2024-06-28] MEDS: SINEMET CR 25-100 (EXTENDED RELEASE) 1 TABLET PO ×2 (08:18→20:45)
[2024-06-28] MEDS: PAXIL 10 MG PO (08:18)
[2024-06-28] MEDS: CYMBALTA DELAYED RELEASE 30 MG PO ×2 (08:18→20:45)
[2024-06-28] MEDS: ZESTRIL 10 MG PO (08:18)
[2024-06-28] MEDS: ZITHROMAX 250 MG PO (08:18)
[2024-06-28] MEDS: PROTONIX 40 MG PO (08:18)
[2024-06-28] MEDS: SOLU-MEDROL PF 40 MG IV (08:19)
[2024-06-28] MEDS: NICODERM TRANSDERMAL 21 MG TRANSDERM (08:19)
[2024-06-28] MEDS: PLAVIX 75 MG PO (08:19)
[2024-06-28] MEDS: LOW STRENGTH ASPIRIN 81 MG PO (08:19)
--- NOTE | 2024-06-28 09:38 | W.PN.PUL3 ---
Today's Communication / Plan
-
Continue prednisone with slow taper tomorrow over the next 10 to 14 days.
PT/OT - skilled rehab rec'd
Continue inhalers with daily zithromax (trend QTc)
Continue as needed nebulizer
Check PLANT BREEDER SCIENTIST eval as pt has been 'gagging' on his food
Placement ongoing-hopefully discharge in 24 hours
Assessment
-
78-year-old man with past medical history noted. Admitted with falling, weakness, weight loss, loss of appetite. Chronic back pain. Symptoms worsen after his abdominal aortic aneurysm repair. I was consulted on 06/26/2024 for mild hypoxemia and
shortness of breath.
Impression:
Exertional dyspnea acute on chronic
Mild hypoxemic respiratory sufficiency - improved
Chest x-ray 06/25/2024: Showed no active cardiopulmonary disease. Minimal interstitial scarring in both lungs.
Weight loss/failure to thrive/generalized weakness
Conditions present prior admission:
Status post Infrarenal abdominal aortic aneurysm without rupture s/p FEVAR 05/07/2024 patient discharged from the hospital 05/11/2024.
Implanted pain management device (June 2017), TURP, back surgery, vertebroplasty
Chronic lower back pain
osteoporosis,
hyperlipidemia
colonic polyps
hypertension
depression
restless leg syndrome
history of pneumonia
scoliosis
history of broken vertebrae
COPD-severe severity per spirometry from 11/09/2023 (post-BD FEV1: 0.94L/39% predicted)
On chronic azithromycin for anti-inflammatory properties/levalbuterol HFA as needed/Trelegy
CT chest 05/10/2024: Reviewed. Moderate emphysema. No evidence for groundglass opacity. Fatty liver infiltration. No evidence for pulmonary nodules. Mild bilateral interstitial fibrosis.
TOBY intolerant to CPAP
lung nodules
tobacco use disorder
Echocardiogram 04/30/2024: Reviewed: Showed normal LVEF. Mild LVH. Mild aortic stenosis. Mild dilated ascending aorta.
Assessment and plan:
Stable exertional dyspnea likely multifactorial with underlying advanced COPD/fibrosis/deconditioning/muscle mass loss.
Chest x-ray showed no acute abnormalities
There is no evidence for acute exacerbation of COPD.
-
Patient is on maximal medical therapy in the outpatient setting with Trelegy and zithromax q daily
No significant oxygen requirements on home oxygen testing.
Patient has lost about 40 pounds in the last 6 months with significant muscle mass loss. Likely contributing to symptoms and shortness of breath.
-
Does not appear toxic
There is no signs of infection
There is no lower extremity edema. Before the fall he was able to walk on a flat surface. Suspect he fell into the ground due to lack of muscle strength. Was not able to stand up on his own.
Continue with PO corticosteroids with taper within the next 10 to 14 days. Usually he feels better with it.
No indication for antibiotic therapy
Continue with inhalers for now - on Symbicort; start Spiriva
Continue low-dose azithromycin for anti-inflammatory properties; trend QTc (505ms in April 2024)
As needed nebulizers
Check PLANT BREEDER SCIENTIST eval as he endorses 'gagging' on his meals
-
Oxygen assessment by respiratory therapist determined the patient does not require supplemental oxygen. Could not walk for longer distance due to lower extremity weakness
-
Physical therapy/Occupational Therapy- rec'd skilled rehab
-
Smoking cessation strongly encouraged-
-
Updated at the bedside 06/26/2024 and 06/27/2024
-
Will follow
-
Hopefully discharge planning in the next 24 hours
Total time spent today was 35 minutes for this encounter. Time includes reviewing laboratory test/imaging results, reviewing pertinent medical records, obtaining and reviewing medical history, performing an appropriate exam, ordering medications,
tests and procedures. Time also includes documentation of this encounter, coordinating patient care and communicating with other healthcare professionals. Total time does not include separately billed tests performed on this date of service.
Subjective Data
-
Date of Service:
Date of Service: June 28, 2024
Chief Complaint: Pulmonary Follow Up
Subjective:
Patient seen and evaluated today at bedside. at bedside. All questions were answered. Currently on room air breathing comfortably. He says he has been gagging on his food for few days. says that he also talks when he eats which does
not help. Patient feels mild SOB with activity otherwise is breathing comfortably and says no shortness of breath at rest. He denies chest pain, PACHECO, abdominal pain, fevers or chills.
Review of Systems
General: Other (Negative unless mentioned above)
Objective Data
Data Reviewed
Vital Signs / I&O / Oxygen:
Vital Signs
Temp Pulse Resp BP Pulse Ox
97.4 F 100 16 131/80 97
06/28/24 07:05 06/28/24 07:27 06/28/24 07:27 06/28/24 08:18 06/28/24 07:27
Intake and Output
06/27/24 06/28/24 06/29/24
06:59 06:59 06:59
Intake Total 720 / 720 920 / 920
Output Total 200 / 200 1500 / 1500
Balance 520 / 520 -580 / -580
SaO2 97
Nasal Cannula flow liters per 4
minute
Physical Exam
General: Respiratory Distress (negative), Comfortable and Chills (negative)
HEENT: Normocephalic and Anicteric
Cardiovascular: S1-S2 and Peripheral Edema (negative)
Respiratory: Wheeze (negative), Crackles (negative), Rhonchi (negative) and Accessory Resp Muscle Use (negative)
GI: Soft, Non Distended, Non Tender and Normal Bowel Sounds
Neurology: Awake, Alert and Tremors (negative)
Skin: Warm, Dry and Jaundice (negative)
Labs/Micro/Reports
Lab Data
06/25/24 21:12
06/26/24 06:58
Microbiology
06/26/24 06:20 Nose MRSA Screen - Final
No Methicillin Resistant Staphylococcus aureus isolated.
--- NOTE | 2024-06-28 09:42 | W.PN.HOSP.TC ---
Today's Communication/Plan
-
dc in am (Tuesday)
Assessment / Plan
Assessment / Plan
Physical Exam
General: No Apparent Distress, Conversant and Appears Chronically Ill
HEENT: Normocephalic, Anicteric, Moist mucous membranes and Atraumatic
Respiratory: limited with less expiratory wheezes at bases.
Cardiac: S1/S2
GI: Soft, Non Tender, Non Distended
Genito-urinary: No hematuria
Musculoskeletal: No Clubbing, No Cyanosis and No Edema
Skin: Warm
Neuro: AO x 3, he followed commands
Psych: Calm
# Acute COPD exacerbation
Tobacco use
There is clinical improvement, pt feels better
He reports willingness to quit smoking
c/w nebulizer and steroid therapy, will change to oral prednisone
f/w Dr Concepcion( his primary microsoft office instructor), Appreciate help
# Severe malnutrition triggered by advanced COPD and PVD with continued tobacco use.
Consulted docket clerk
Pt might have a chance to rehab himself if he quit smoking and continues with his treatments.
# Hx of low back pain
The patient was recently started on tizanidine 4 mg for his low back pain. No urinary symptoms.
- gentle hydration,w ill dc
- low normal cpk
- held tizanidine
- PT/OT , recommended SNF
#Restless leg.
- carbidopa levodopa 25-100 bid
- duloxetine 30 bid
# Stage 1 sacral pressure injury, POA.'
Consult wound care
Encourage position change
#. PAD/AAA
He continues to smoke
- continue aspirin, Plavix and low dose statin
His vascular doctor is Dr Rodriguez.
-
DVT - PPX - lovenox sq
Code status - Full
Total time spent to see the patient, examine the patient on the floor, review data and lab results, discuss treatment plan with patient, nursing staff around 55 minutes
Anticipated Discharge: Within 24 hours
Subjective/Interval History
-
Date of Service: June 28, 2024
He feels better
No chest pain
No abd pain
Objective Data
-
Vital Signs:
Vital Signs
Temp Pulse Resp BP Pulse Ox
97.4 F 100 16 131/80 97
06/28/24 07:05 06/28/24 07:27 06/28/24 07:27 06/28/24 08:18 06/28/24 07:27
I&O
06/27/24 06/28/24 06/29/24
06:59 06:59 06:59
Intake Total 720 / 720 920 / 920
Output Total 200 / 200 1500 / 1500
Balance 520 / 520 -580 / -580
[2024-06-28 14:09] VITALS: O2SAT 94
[2024-06-28 15:00] VITALS: BP 102/76
[2024-06-28 16:26] VITALS: BP 114/71; PULSE 105; O2SAT 94
[2024-06-28] MEDS: LOVENOX 40 MG SC (17:03)
[2024-06-28] MEDS: LIPITOR 10 MG PO (17:03)
--- NOTE | 2024-06-28 17:46 | CM ---
PT OT indicates SN[facility] [place] .
Will need auth .
van transport.
[facility] after auth obtained
[2024-06-28 23:45] VITALS: BP 117/81
[2024-06-29] MEDS: SPIRIVA RESPIMAT 2.5 MCG 2 PUFF INH (07:11)
[2024-06-29] MEDS: SYMBICORT 160/4.5 MCG INHALER 2 PUFF INH (07:11)
[2024-06-29 07:17] VITALS: BP 144/97
--- NOTE | 2024-06-29 07:55 | PTOTSP ---
Speech Language Pathology
Pt seen for clinical bedside swallow evaluation. Per pulmonology note, pt endorsed gagging on food. When discussed with pt this date, he stated this has only happened with scones brought in from home since he has been hospitalized. He denied
gagging with any other foods/liquids or this happening at home. He denied any difficulty swallowing. He stated he had PNA 1-2 years ago.
P.O. trials of regular solids and thin liquids provided. Pt with upper dentures in only, lower dentures not in. Pt stated he can chew without them and didn't want to place them for evaluation, as he said the denture adhesive needs to dry for 15
minutes before he can eat with them. Seen with potatoes and thin liquids. Adequate mastication, bolus formation, and A-P transit noted with no overt signs of aspiration.
Recommend:
(1) Continue regular solids/thin liquids
(2) General aspiration precautions
(3) Meds as tolerated
(4) CAREER SERVICES OFFICER to sign off. Please reconsult as indicated
[2024-06-29] MEDS: NICODERM TRANSDERMAL 21 MG TRANSDERM (08:12)
[2024-06-29] MEDS: CYMBALTA DELAYED RELEASE 30 MG PO (08:13)
[2024-06-29] MEDS: DELTASONE 40 MG PO (08:13)
[2024-06-29] MEDS: PAXIL 10 MG PO (08:13)
[2024-06-29] MEDS: ZESTRIL 10 MG PO (08:13)
[2024-06-29] MEDS: PLAVIX 75 MG PO (08:13)
[2024-06-29] MEDS: MUCINEX 600 MG PO (08:13)
[2024-06-29] MEDS: ZITHROMAX 250 MG PO (08:13)
[2024-06-29] MEDS: SINEMET CR 25-100 (EXTENDED RELEASE) 1 TABLET PO (08:13)
[2024-06-29] MEDS: PROTONIX 40 MG PO (08:13)
[2024-06-29] MEDS: LOW STRENGTH ASPIRIN 81 MG PO (08:13)
--- NOTE | 2024-06-29 09:02 | W.PN.PUL3 ---
Today's Communication / Plan
-
Continue prednisone with slow taper over the next 10 to 14 days.
PT/OT - skilled rehab rec'd
Continue inhalers with daily zithromax (QTc 500ms today)
Continue as needed nebulizer
WHEEL TRUER saw patient today with no overt signs of aspiration and cleared for regular solids/thin liquids
Patient is being prepared for discharge to SNF today at [facility]. Patient already has an appointment with Dr. Concepcion on 08/08/2024 at 1:30 PM - he was instructed to keep that appt. Pulmonary service will now sign off. Please reconsult
if there are any additional questions/concerns, or if patient's respiratory status deteriorates.
Assessment
-
78-year-old man with past medical history noted. Admitted with falling, weakness, weight loss, loss of appetite. Chronic back pain. Symptoms worsen after his abdominal aortic aneurysm repair. I was consulted on 06/26/2024 for mild hypoxemia and
shortness of breath.
Impression:
Exertional dyspnea acute on chronic
Mild hypoxemic respiratory sufficiency - improved
Chest x-ray 06/25/2024: Showed no active cardiopulmonary disease. Minimal interstitial scarring in both lungs.
Weight loss/failure to thrive/generalized weakness
Conditions present prior admission:
Status post Infrarenal abdominal aortic aneurysm without rupture s/p FEVAR 05/07/2024 patient discharged from the hospital 05/11/2024.
Implanted pain management device (June 2017), TURP, back surgery, vertebroplasty
Chronic lower back pain
osteoporosis,
hyperlipidemia
colonic polyps
hypertension
depression
restless leg syndrome
history of pneumonia
scoliosis
history of broken vertebrae
COPD-severe severity per spirometry from 11/09/2023 (post-BD FEV1: 0.94L/39% predicted)
On chronic azithromycin for anti-inflammatory properties/levalbuterol HFA as needed/Trelegy
CT chest 05/10/2024: Reviewed. Moderate emphysema. No evidence for groundglass opacity. Fatty liver infiltration. No evidence for pulmonary nodules. Mild bilateral interstitial fibrosis.
TOBY intolerant to CPAP
lung nodules
tobacco use disorder
Echocardiogram 04/30/2024: Reviewed: Showed normal LVEF. Mild LVH. Mild aortic stenosis. Mild dilated ascending aorta.
Assessment and plan:
Stable exertional dyspnea likely multifactorial with underlying advanced COPD/fibrosis/deconditioning/muscle mass loss.
Chest x-ray showed no acute abnormalities, with interstitial scarring at the bases (L >R), present since at least 01/20/2024
There is no evidence for acute exacerbation of COPD.
-
Patient is on maximal medical therapy in the outpatient setting with Trelegy and zithromax q daily
No significant oxygen requirements on home oxygen testing.
Patient has lost about 40 pounds in the last 6 months with significant muscle mass loss. Likely contributing to symptoms and shortness of breath.
-
Does not appear toxic
There is no signs of infection
There is no lower extremity edema. Before the fall he was able to walk on a flat surface. Suspect he fell into the ground due to lack of muscle strength. Was not able to stand up on his own.
Continue with PO corticosteroids with taper within the next 10 to 14 days. Usually he feels better with it.
No indication for antibiotic therapy
Continue with inhalers for now - on Symbicort; Spiriva started on 06/28/2024 --> resume trelegy upon discharge
Continue low-dose azithromycin for anti-inflammatory properties; trend QTc (505ms in April 2024 --> 500ms today)
As needed nebulizers
WHEEL TRUER eval as he endorses 'gagging' on his meals =--> WHEEL TRUER saw patient today with no overt signs of aspiration and cleared for regular solids/thin liquids
-
Oxygen assessment by respiratory therapist determined the patient does not require supplemental oxygen. Could not walk for longer distance due to lower extremity weakness
-
Physical therapy/Occupational Therapy- rec'd skilled rehab
-
Smoking cessation strongly encouraged-
-
Updated at the bedside 06/26/2024 and 06/27/2024
-
Patient being prepared for discharge to SNF today at [facility]. Patient already has an appointment with Dr. Concepcion on 08/08/2024 at 1:30 PM. He was advised to keep that appt. Pulmonary service will now sign off. Thank you for allowing us
to be involved in the care of this patient. Please reconsult if there are any additional questions/concerns, or if patient's respiratory status deteriorates.
Total time spent today was 25 minutes for this encounter. Time includes reviewing laboratory test/imaging results, reviewing pertinent medical records, obtaining and reviewing medical history, performing an appropriate exam, ordering medications,
tests and procedures. Time also includes documentation of this encounter, coordinating patient care and communicating with other healthcare professionals. Total time does not include separately billed tests performed on this date of service.
Subjective Data
-
Date of Service:
Date of Service: June 29, 2024
Chief Complaint: Pulmonary Follow Up
Subjective:
Patient seen and evaluated today at bedside. No acute events reported from overnight. He feels better, no SOB or chest pain, fevers or chills. Being prepared for discharge to SNF today.
Review of Systems
General: Other (Negative unless mentioned above)
Objective Data
Data Reviewed
Vital Signs / I&O / Oxygen:
Vital Signs
Temp Pulse Resp BP Pulse Ox
98 F 105 24 144/97 94
06/29/24 07:17 06/29/24 07:17 06/29/24 07:17 06/29/24 07:17 06/29/24 08:10
Intake and Output
06/28/24 06/29/24 06/30/24
06:59 06:59 06:59
Intake Total 920 / 920 480 / 480
Output Total 1500 / 1500 200 / 200 700 / 700
Balance -580 / -580 280 / 280 -700 / -700
SaO2 94
Nasal Cannula flow liters per 4
minute
Physical Exam
General: Respiratory Distress (negative), Comfortable, Chills (negative) and Good Appetite
HEENT: Normocephalic and Anicteric
Cardiovascular: S1-S2 and Peripheral Edema (negative)
Respiratory: Clear, Wheeze (negative), Crackles (negative), Rhonchi (negative) and Accessory Resp Muscle Use (negative)
GI: Soft, Non Distended, Non Tender and Normal Bowel Sounds
Neurology: AO x 3 and Tremors (negative)
Skin: Warm, Dry and Jaundice (negative)
Labs/Micro/Reports
Lab Data
06/25/24 21:12
06/26/24 06:58
Microbiology
06/26/24 06:20 Nose MRSA Screen - Final
No Methicillin Resistant Staphylococcus aureus isolated.
--- NOTE | 2024-06-29 10:01 | W.PN.HOSP.TC ---
Today's Communication/Plan
-
Discharge to SNF
Assessment / Plan
Assessment / Plan
Physical Exam
General: No Apparent Distress, Conversant and Appears Chronically Ill
HEENT: Normocephalic, Anicteric, Moist mucous membranes and Atraumatic
Respiratory: limited with less expiratory wheezes at bases.
Cardiac: S1/S2
GI: Soft, Non Tender, Non Distended
Genito-urinary: No hematuria
Musculoskeletal: No Clubbing, No Cyanosis and No Edema
Skin: Warm
Neuro: AO x 3, he followed commands
Psych: Calm
# Acute COPD exacerbation
Tobacco use
There is clinical improvement, pt feels better
He reports willingness to quit smoking
c/w nebulizer and steroid therapy, will change to oral prednisone , slow taper
EKG QT s stable.
Speech saw the pt, no issues. Patient reported that only (dry food)made him feel problem and not concerned about it.
f/w Dr Concepcion( his primary pest management supervisor), Appreciate help
# Severe malnutrition triggered by advanced COPD and PVD with continued tobacco use.
Consulted service tester
Pt might have a chance to rehab himself if he quit smoking and continues with his treatments.
# Hx of low back pain
The patient was recently started on tizanidine 4 mg for his low back pain. No urinary symptoms.
- gentle hydration, dc IVF
- low normal cpk
- held tizanidine
- PT/OT , recommended SNF
#Restless leg.
- carbidopa levodopa 25-100 bid
- duloxetine 30 bid
# Stage 1 sacral pressure injury, POA.'
Consult wound care
Encourage position change
#. PAD/AAA
He continues to smoke
- continue aspirin, Plavix and low dose statin
His vascular doctor is Dr Rodriguez.
-
DVT - PPX - lovenox sq
Code status - Full
Total discharge time spent to see the patient, examine the patient on the floor, review data and lab results, discuss discharge plan with patient, , nursing staff around 65 minutes
Anticipated Discharge: Today
Subjective/Interval History
-
Date of Service: June 29, 2024
No complaints
He feels better, denies chest pain
Objective Data
-
Vital Signs:
Vital Signs
Temp Pulse Resp BP Pulse Ox
98 F 105 24 144/97 94
06/29/24 07:17 06/29/24 07:17 06/29/24 07:17 06/29/24 07:17 06/29/24 08:10
I&O
06/28/24 06/29/24 06/30/24
06:59 06:59 06:59
Intake Total 920 / 920 480 / 480
Output Total 1500 / 1500 200 / 200 700 / 700
Balance -580 / -580 280 / 280 -700 / -700
--- NOTE | 2024-06-29 10:16 | CM ---
indicated pt ready for dc.
Andrea from [facility] accepted him .
called [place] [id number] spoke with Michelle [facility] approved for 5 days [facility] 07-03-24 call [phone] Auth # [id number]
Andrea aware of auth approval.
Family agreed with [facility] transport.Transport form completed . given acute care number to pay
PLAN [facility] via [employer]
--- NOTE | 2024-06-29 12:50 | W.DCSUMMARY ---
Discharge Summary
Discharge Data
Date of Admission: 06/26/24
Date of Discharge: 06/29/24
-
Pending Results: No
Hospital Course
78 years old male admitted with shortness of breath and confusion. Patient was found to have hypoxia with COPD exacerbation. Patient continued to smoke despite having advanced COPD and peripheral vascular disease. Patient was started on
intravenous steroid and nebulizer treatment. His hypoxia improved and resolved. He was able to come off nasal oxygen on rest. Patient had lower back pain. He was recently started on tizanidine which was felt to be causing more weakness.
Tizanidine was stopped. Patient was evaluated by physical therapy and recommended jail facility. Patient was evaluated by pulmonary doctor. He was maintained on nebulizer treatment and recommended slow taper of prednisone. Patient was
counseled to quit smoking and he verbalized understanding. He was given nicotine patch. He started to have clinical improvement. He was evaluated by speech with no issues detected. Patient remained hemodynamically stable and was discharged to
jail facility in a stable condition.
Discharge Plan
-
Patient Disposition: Care Home/SNF
Discharge Diagnosis/Procedures: Acute COPD exacerbation
Tobacco use
Severe malnutrition triggered by advanced COPD and PVD with continued tobacco use.
Low back pain
Restless leg.
Stage 1 sacral pressure injury.
Diet: As tolerated and Supplements
Activity Restrictions/Additional Instructions:
Wound Care Instructions
Coccyx-protective silicone border foam, change q 3 days and prn loosened dressing.
L lateral ankle and R Achilles-protective silicone border foam, change q 3 days and prn loosened dresssing.
Pressure redistributing chair cushion (i.e Air chair cushion)
Encourage/assist as needed with frequent turning.
Elevate heels off bed with pillow/s and/or air chair cushion.
Follow up with your vascular surgeon.
Referrals:
Cricket Brooks MD [Active] - (As previously scheduled)
Facundo Carreon MD [Family Provider] -
Prescriptions:
New
acetaminophen 325 mg Tablet
650 mg PO Q4HPRN PRN (Reason: mild pain/PACHECO/temp> 100.4F) Qty: 10 0RF
polyethylene glycol 3350 [HealthyLax] 17 gram Powder In Packet
17 g PO DAILYPRN PRN (Reason: constipation) Qty: 10 0RF
bisacodyl 10 mg Suppository
10 mg SD [id number] PRN (Reason: constipation) Qty: 10 0RF
Spiriva Respimat 2.5 mcg/actuation Mist
2 puff inhalation R DAILY Qty: 30 0RF
prednisone 10 mg tablet
30 mg PO DAILY Qty: 18 0RF
Rx Instructions:
30 mg for 3 days, 20 mg for 3 days ,10 mg for 3 days.
oxycodone-acetaminophen 5-325 mg tablet
1 tab PO Q8H PRN (Reason: severe pain) Qty: 10 0RF
Continued
atorvastatin 10 MG tablet
10 mg PO QPM
lisinopril 10 MG tablet
10 mg PO DAILY
omeprazole 20 MG capsule,delayed release(DR/EC)
20 mg PO DAILY
carbidopa-levodopa 25-100 mg tablet extended release
1 tab PO DAILY
carbidopa-levodopa 25-100 mg tablet extended release
2 tab PO HS
paroxetine HCl 10 mg Tablet
20 mg PO DAILY
azithromycin 250 mg Tablet
250 mg PO DAILY
duloxetine 30 mg Capsule,Delayed Release(Dr/Ec)
30 mg PO DAILY
duloxetine 30 mg Capsule, Delayed Rel Sprinkle
60 mg PO HS
guaifenesin [Mucinex] 600 mg tablet extended release 12hr
600 mg PO DAILY
Trelegy Ellipta 100-62.5-25 mcg Blister With Device
1 inh INHALATION DAILY
multivitamin Tablet
1 tab PO DAILY
albuterol sulfate 2.5 mg /3 mL (0.083 %) Solution For Nebulization
2.5 mg INHALATION Q6HPRN PRN (Reason: SOB/WHEEZE)
clopidogrel 75 mg Tablet
75 mg PO DAILY Qty: 90 0RF
nicotine 21 mg/24 hr Patch 24 Hour
21 mg transdermal DAILY Qty: 7 0RF
aspirin 81 mg Tablet,Chewable
81 mg PO DAILY Qty: 90 0RF
Discontinued
oxycodone-acetaminophen 10-325 mg Tablet
1 tab PO Q6HPRN PRN (Reason: SEVERE PAIN)
levalbuterol tartrate 45 mcg/actuation HFA aerosol inhaler
1 puff INHALATION R Q4HPRN PRN (Reason: SOB)
levalbuterol HCl 1.25 mg/3 mL Solution For Nebulization
1.25 mg INHALATION Q4HPRN PRN (Reason: SOB/wheezing)
fluticasone propionate 50 mcg/actuation [place],Suspension
2 spray INTRANASAL DAILY
Discharge Orders:
Discharge Patient (As Directed); Ordered 06/29/24
Ordered By: Amol Felder
Discharge Date and Time
Discharge Date/Time: 06/29/24 12:28
Print Language: KAZAKH
== END 2024-06-29 12:28 | DRG 190 ==
LOC: 4 EAST ACU 06:45
PROVIDERS: ADMITTING PHYSICIAN Internal Medicine; ATTENDING PHYSICIAN Internal Medicine; CONSULT PHYSICIAN Internal Medicine Critical Care Medicine; EMERGENCY PHYSICIAN Emergency Medicine; FAMILY PHYSICIAN Family Medicine
DX: J44.1 Chronic obstructive pulmonary disease with (acute) exacerbation (principal); E43 Unspecified severe protein-calorie malnutrition; F11.20 Opioid dependence, uncomplicated; R53.1 Weakness; G20.A1 Parkinson's disease without dyskinesia, without mention of fluctuations; J43.9 Emphysema, unspecified; I73.9 Peripheral vascular disease, unspecified; F32.9 Major depressive disorder, single episode, unspecified; G25.81 Restless legs syndrome; I10 Essential (primary) hypertension; K76.0 Fatty (change of) liver, not elsewhere classified; L89.151 Pressure ulcer of sacral region, stage 1; R62.7 Adult failure to thrive; K21.9 Gastro-esophageal reflux disease without esophagitis; E78.00 Pure hypercholesterolemia, unspecified; F17.200 Nicotine dependence, unspecified, uncomplicated; G47.33 Obstructive sleep apnea (adult) (pediatric); G89.29 Other chronic pain; M54.50 Low back pain, unspecified; F41.9 Anxiety disorder, unspecified; R26.2 Difficulty in walking, not elsewhere classified; M41.9 Scoliosis, unspecified; M81.0 Age-related osteoporosis without current pathological fracture; S89.91XA Unspecified injury of right lower leg, initial encounter; X50.1XXA Overexertion from prolonged static or awkward postures, initial encounter; R09.02 Hypoxemia; K59.00 Constipation, unspecified; Z68.21 Body mass index [BMI] 21.0-21.9, adult; Z79.02 Long term (current) use of antithrombotics/antiplatelets; Z79.82 Long term (current) use of aspirin; Z79.899 Other long term (current) drug therapy; Z87.01 Personal history of pneumonia (recurrent); Z86.79 Personal history of other diseases of the circulatory system; Z86.73 Personal history of transient ischemic attack (TIA), and cerebral infarction without residual deficits; Z86.010 Personal history of colon polyps
CPT/HCPCS: 71046; 73564; 80048; 80053; 81003; 81015; 82550; 84443; 85025; 87070; 87811; 92610; 93005; 94640; 97163; 97167; 97530; 99285; 99406

== ENCOUNTER → 2024-07-05 12:00 | Outpatient (REF) | payer OTHER, SELFPAY ==
[2024-07-05 12:32] LABS: % Basophils 0.3 % (0-2); % Eosinophils 0.9 % (0-6); % Immature Granulocytes 1.7 % (0-0.5); % Monocytes 9.5 % (1.7-9.3); % Neutrophils 64.6 % (42.2-75.2); Absolute Eosinophils 0.1 10^3/uL (0-0.7); Absolute Immature Granulocytes 0.2 10^3/uL (0-0.05); Absolute Lymphocytes 2.1 10^3/uL (1.2-3.4); Absolute Monocytes 0.9 10^3/uL (0.1-0.6); Absolute Neutrophils 5.8 10^3/uL (1.4-6.5); Hematocrit 36.1 % (39.0-52.0); Hemoglobin 12.6 g/dL (13.0-18.0); Mean Corp Hgb Conc. 34.9 g/dL (33.0-37.0); Mean Corpuscular Volume 91.6 fL (80.0-94.0); Mean Platelet Volume 10.4 fL (7.4-10.4); Nucleated Red Blood Cells % 0 % (-); Platelet Count 106 10^3/uL (130-400); Red Blood Cell Count 3.94 10^6/uL (4.70-6.10); Red Cell Dist. Width 13.8 % (11.5-14.5); White Blood Cell Count 8.9 10^3/uL (4.8-10.8)
[2024-07-05 12:39] LABS: ALT (SGPT) 18 U/L (0-50); AST (SGOT) 44 U/L (17-59); Albumin 3.4 g/dl (3.5-5.0); Alkaline Phosphatase 68 U/L (38-126); Blood Urea Nitrogen 26 mg/dl (9-20); Calcium 9.1 mg/dl (8.4-10.2); Carbon Dioxide 25 mmol/L (22-30); Chloride 101 mmol/L (98-107); Glucose 78 mg/dl (70-99); Magnesium 1.8 mg/dl (1.6-2.3); Potassium 4.3 mmol/L (3.5-5.1); Sodium 136 mmol/L (135-145); Total Bilirubin 0.4 mg/dl (0.2-1.3); Total Protein 5.5 g/dl (6.3-8.2); eGFR > 60.00
== END ==
LOC: OLABN 12:00
PROVIDERS: ATTENDING PHYSICIAN Student in an Organized Health Care Education/Training Program
DX: I10 Essential (primary) hypertension (principal); J44.9 Chronic obstructive pulmonary disease, unspecified; E61.2 Magnesium deficiency
CPT/HCPCS: 36415; 80053; 83735; 85025

== ENCOUNTER 2024-07-27 06:09 | Day surgery (SDC) | payer OTHER, SELFPAY ==
[2024-07-10 09:59] VITALS: BMI 22.0
[2024-07-10 10:44] LABS: Hematocrit 40.3 % (39.0-52.0); Hemoglobin 13.6 g/dL (13.0-18.0); Mean Corp Hgb Conc. 33.7 g/dL (33.0-37.0); Mean Corpuscular Hgb 30.8 pg (27.0-31.0); Mean Corpuscular Volume 91.2 fL (80.0-94.0); Red Blood Cell Count 4.42 10^6/uL (4.70-6.10); Red Cell Dist. Width 14.2 % (11.5-14.5); White Blood Cell Count 8.2 10^3/uL (4.8-10.8)
[2024-07-10 11:10] LABS: Blood Urea Nitrogen 24 mg/dl (9-20); Calcium 9.1 mg/dl (8.4-10.2); Carbon Dioxide 25 mmol/L (22-30); Chloride 97 mmol/L (98-107); Estimated Creatinine Clearance 50 ml/min; Glucose 120 mg/dl (70-99); Potassium 4.3 mmol/L (3.5-5.1); Sodium 134 mmol/L (135-145); eGFR > 60.00
[2024-07-10 11:14] LABS: Mean Platelet Volume 10.2 fL (7.4-10.4)
[2024-07-10 11:15] LABS: Platelet Count 89 10^3/uL (130-400)
--- NOTE | 2024-07-24 08:09 | PTCARENOTE ---
Dior in Dr. Segura's office made aware of PLT's 89.
--- NOTE | 2024-07-24 14:24 | PTCARENOTE ---
Plt 89, Dr. Gutierrez notified, no additional requests made.
[2024-07-27] VITALS (13 sets, daily range): BP systolic 88–157; BP diastolic 64–138; BMI 21.3
[2024-07-27] MEDS: TYLENOL 1000 MG PO (06:54)
[2024-07-27] MEDS: NSS 500 IV (11:34)
== END 2024-07-27 13:25 | disposition home or self-care (01) ==
LOC: SDS 06:09
PROVIDERS: ATTENDING PHYSICIAN Surgery; FAMILY PHYSICIAN Family Medicine; OTHER PHYSICIAN Nuclear Medicine Nuclear Cardiology
DX: K40.91 Unilateral inguinal hernia, without obstruction or gangrene, recurrent (principal)
CPT/HCPCS: 49520; 36415; 80048; 85027; 93005; C1781

== ENCOUNTER → 2024-08-16 14:01 | Outpatient (REF) | payer OTHER, SELFPAY | LOC: RAD 14:01 | PROVIDERS: ATTENDING PHYSICIAN Nurse Practitioner; FAMILY PHYSICIAN Psychiatry & Neurology Neurology | DX: M54.16 Radiculopathy, lumbar region (principal) | CPT/HCPCS: 72110 ==

== ENCOUNTER → 2024-08-30 16:41 | Outpatient (REF) | payer OTHER, SELFPAY | LOC: PAVMRI 16:41 | PROVIDERS: ATTENDING PHYSICIAN Psychiatry & Neurology Neurology; FAMILY PHYSICIAN Family Medicine | DX: M54.16 Radiculopathy, lumbar region (principal); M54.50 Low back pain, unspecified; M54.14 Radiculopathy, thoracic region; M54.6 Pain in thoracic spine | CPT/HCPCS: 72146 ==

== ENCOUNTER 2024-10-04 04:36 | Emergency (ER) | payer OTHER, SELFPAY ==
[2024-10-04] VITALS (22 sets, daily range): BP systolic 98–163; BP diastolic 56–97; BMI 21.8
--- NOTE | 2024-10-04 05:30 | ED.GENMED ---
History of Present Illness
General
Chief Complaint: Head Injury
Source: patient
Exam Limitations: none
Time Seen by Provider: 10/04/24 04:52
Nursing documentation reviewed up to this point in time: agreed with
History of Present Illness
History of Present Illness:
Patient presents to ED secondary to worsening headache since fall onto furniture 3 days ago at home. Since then, patient has had 1 vomiting episode. Denies dizziness. Denies loss of sensation or weakness. Denies difficulty with speech. Denies
blurred vision. Patient is currently taking aspirin and Plavix, since AAA repair earlier this year.
Past History
Past History
ED Past Medical History: Arrthythmia (WPW), COPD, CVA, GERD, HTN, Hypercholesterolemia, Psychiatric (MDD) and Other (osteoarthitis, chronic low back pain/narcotic dependent)
ED Past Surgical History: Cardiac (Ablation for WPW), Urological (Prostatectomy) and Other (Hernia repair)
Social History
Tobacco: Smoker
Alcohol: Daily (Wine)
Personal:
Living: with family
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
Family History
Family History: Other (reviewed and non-contributory)
Review of Systems
Review of Systems
Allergies reviewed?: Yes
All Other Systems: ROS reviewed and negative except as documented in HPI and ROS
Constitutional: Reports no symptoms
EENT: Reports no symptoms
Respiratory: Reports no symptoms
Cardiac: Reports no symptoms
ABD/GI: Reports nausea and vomiting
Musculoskeletal: Reports no symptoms
Skin: Reports no symptoms
Neurological: Reports headache
Phy Exam
Physical Exam
Physical Exam:
Physical Exam
General: mild distress, not acutely ill. afebrile. thin appearing
Head: ecchymosis/swelling noted over left maxilla.
Neck: supple. no meningeal signs.
Heart: s1/s2 regular rate and rhythm, no murmur. equal radial pulses.
Lungs: no acute respiratory distress. clear bilaterally. chest wall nontender to palpation
Abdomen: normal bowel sounds. not tender.
Neuro: alert and oriented. no focal neurological deficits
Skin: no rash
Psychiatric: well kept. interactive and cooperative
Extremities: no edema. no calf tenderness.
Course
Orders/Labs/Results
Orders:
Orders
10/04/24 05:[address]
CT Facial Bones W/o Iv Contras Urgent
Comment:
Reason For Exam: trauma
CT Head W/o Iv Contrast Urgent
Comment:
Reason For Exam: trauma
10/04/24 05:22
Ondansetron Injectable [Zofran] 4 mg .ROUTE .STK-MED ONE
10/04/24 05:25
Nicardipine 40 mg/200 ml [Cardene] 40 mg in 200 ml .ROUTE .STK-MED
10/04/24 05:32
Ondansetron Injectable [Zofran] 4 mg IV NOW STA
10/04/24 05:39
Type+Screen Urgent
Complete Blood Count/With Diff Urgent
Comprehensive Metabolic Panel Urgent
PTT Urgent
Prothrombin Time Urgent
10/04/24 05:45
Nicardipine 40 mg/200 ml [Cardene] 40 mg in 200 ml IV PER PROTOCOL
Initial dose in mg/hr, then titrate:: 5
Titrate to keep:: SBP 120 - 140 mmHg
Titrate by mg/hr:: 2.5 mg/hr
Frequency of titrations (minutes):: 5-15 minutes
Maximum dose in mg/hr:: 15
Begin to taper infusion when:: Remained at goal for 2hrs
Taper by mg/hr:: 2.5 mg/hr
Frequency of taper (minutes) if patient maintains goal:: every 15-30 minutes
Taper to off?: Yes
If infusion off & no longer maintaining goal:: Contact Provider
10/04/24 06:04
Desmopressin [Ddavp] 22 mcg 0.9% Sodium Chloride 50 ml [Nss] 50 ml IV NOW
Abnormal Lab Results
10/04/24
05:39
RBC 4.01 L 10^6/uL
(4.70-6.10)
Hgb 11.6 L g/dL
(13.0-18.0)
Hct 35.6 L %
(39.0-52.0)
MCHC 32.6 L g/dL
(33.0-37.0)
Abs Immat Gran (auto) 0.1 H 10^3/uL
(0-0.05)
Absolute Neuts (auto) 7.4 H 10^3/uL
(1.4-6.5)
Absolute Monos (auto) 0.8 H 10^3/uL
(0.1-0.6)
Neutrophils % 76.0 H %
(42.2-75.2)
Lymphocytes % 14.2 L %
(20.5-51.1)
APTT 46.9 H Sec
(23.4-35.0)
Sodium 132 L mmol/L
(135-145)
Chloride 97 L mmol/L
(98-107)
Glucose 142 H mg/dl
(70-99)
10/04/24 05:39
10/04/24 05:39
Vital Signs
Initial and Last Documented VS:
Initial Vital Signs
Temp Pulse Resp BP Pulse Ox
98.1 F 104 24 136/94 98
10/04/24 04:46 10/04/24 04:46 10/04/24 04:46 10/04/24 04:46 10/04/24 04:46
Last Documented Vital Signs
Temp Pulse Resp BP Pulse Ox
98.1 F 98 29 114/62 98
10/04/24 04:46 10/04/24 07:30 10/04/24 07:30 10/04/24 07:30 10/04/24 04:46
MDM/Problems Addressed
MDM/Problems Addressed:
CT head report reviewed with oncall neurosx () - recommends transfer to [facility] for closer observation. Agrees with flor pérez for BP control.
Discussed with trauma attending @ [facility] who agreed to accept transfer. Recommends administering DDAVP and platelets. Informed that DDAVP will be given, but platelet transfusion may not take place, depending on when transfer is completed.
Transfer consent on the chart.
Critical care statement: A total of 40 minutes of critical care time was provided for this patient. This includes management of unstable vital signs, evaluation of the patient at bedside, reviewing the patient's pertinent medical records, discussion
with consultants, review of old EKGs and review of pertinent medical records. This time with separate from time utilized to perform the aforementioned documented procedures
*Critical Care Note
Total Time (30-74mins, 75-104mins- exclusive of procedures): 40 min
ED Attending Note
-
Portions of this chart may have been created with voice recognition software.� Occasional wrong word or��sound alike� substitutions may have occurred due to the inherent limitations of voice recognition software.
Discharge Plan
Departure
Patient Disposition: [facility]
Date of Disposition: 10/04/24
Time of Disposition: 05:56
Discharge Problem:
Subdural hematoma
Prescriptions:
No Action
atorvastatin 10 MG tablet
10 mg PO QPM
lisinopril 10 MG tablet
10 mg PO DAILY
omeprazole 20 MG capsule,delayed release(DR/EC)
20 mg PO DAILY
carbidopa-levodopa 25-100 mg tablet extended release
1 tab PO DAILY
carbidopa-levodopa 25-100 mg tablet extended release
2 tab PO HS
paroxetine HCl 10 mg Tablet
20 mg PO DAILY
duloxetine 30 mg Capsule,Delayed Release(Dr/Ec)
30 mg PO DAILY
duloxetine 30 mg Capsule, Delayed Rel Sprinkle
30 mg PO HS
guaifenesin [Mucinex] 600 mg tablet extended release 12hr
600 mg PO DAILY
Trelegy Ellipta 100-62.5-25 mcg Blister With Device
1 inh INHALATION DAILY
multivitamin Tablet
1 tab PO DAILY
clopidogrel 75 mg Tablet
75 mg PO DAILY Qty: 90 0RF
nicotine 21 mg/24 hr Patch 24 Hour
21 mg transdermal DAILY Qty: 7 0RF
aspirin 81 mg Tablet,Chewable
81 mg PO DAILY Qty: 90 0RF
levalbuterol HCl 1.25 mg/0.5 mL Solution For Nebulization
1.25 mg INHALATION DAILY
levalbuterol tartrate 45 mcg/actuation Hfa Aerosol Inhaler
2 inh INHALATION Q6H PRN (Reason: shortness of breath)
Senokot
1 dose PO DAILY
oxycodone-acetaminophen 5-325 mg tablet
1 tab PO Q8H PRN (Reason: severe pain) Qty: 10 0RF
Hospital Transfer
Other hospital: [facility]
I certify that the patient requires transfer: Yes
Discussed case with accepting physician:
Reason for transfer: higher level of care, medical necessity, availability of service and specialties available
Interventions
Interventions:
*Risk Screen - Suicide Last Done: 10/04/24 04:46
*General Assessment Last Done: 10/04/24 05:33
*Neglect/Abuse Screening Last Done: 10/04/24 04:46
ED- Fall Risk Assessment Last Done: 10/04/24 05:06
*ED COVID-19 Vaccine History Last Done: 10/04/24 05:33
*Nursing Disposition Last Done: 10/04/24 07:35
ED- Neurological Assessment Last Done: 10/04/24 05:06
ED-Skin Assessment Last Done: 10/04/24 05:06
Discharge Date and Time
Discharge Date/Time: 10/04/24 07:35
Print Language: OCCITAN
[2024-10-04] MEDS: ZOFRAN 4 MG IV (05:32)
[2024-10-04] MEDS: CARDENE 200 IV (05:42)
[2024-10-04 05:50] LABS: % Basophils 0.3 % (0-2); % Eosinophils 0.6 % (0-6); % Immature Granulocytes 0.5 % (0-0.5); % Lymphocytes 14.2 % (20.5-51.1); % Monocytes 8.4 % (1.7-9.3); Absolute Eosinophils 0.1 10^3/uL (0-0.7); Absolute Immature Granulocytes 0.1 10^3/uL (0-0.05); Absolute Lymphocytes 1.4 10^3/uL (1.2-3.4); Absolute Monocytes 0.8 10^3/uL (0.1-0.6); Absolute Neutrophils 7.4 10^3/uL (1.4-6.5); Hematocrit 35.6 % (39.0-52.0); Hemoglobin 11.6 g/dL (13.0-18.0); Mean Corp Hgb Conc. 32.6 g/dL (33.0-37.0); Mean Corpuscular Hgb 28.9 pg (27.0-31.0); Mean Corpuscular Volume 88.8 fL (80.0-94.0); Mean Platelet Volume 9.8 fL (7.4-10.4); Nucleated Red Blood Cells % 0 % (-); Platelet Count 184 10^3/uL (130-400); Red Blood Cell Count 4.01 10^6/uL (4.70-6.10); Red Cell Dist. Width 13.5 % (11.5-14.5); White Blood Cell Count 9.8 10^3/uL (4.8-10.8)
[2024-10-04 06:04] LABS: INR 1.02; PT 13.9 Sec (11.4-14.6)
[2024-10-04 06:08] LABS: ALT (SGPT) < 10 U/L (0-50); AST (SGOT) 23 U/L (17-59); Albumin 3.9 g/dl (3.5-5.0); Alkaline Phosphatase 88 U/L (38-126); Blood Urea Nitrogen 15 mg/dl (9-20); Calcium 9.4 mg/dl (8.4-10.2); Carbon Dioxide 27 mmol/L (22-30); Chloride 97 mmol/L (98-107); Estimated Creatinine Clearance 52 ml/min; Glucose 142 mg/dl (70-99); Potassium 3.8 mmol/L (3.5-5.1); Sodium 132 mmol/L (135-145); Total Bilirubin 0.4 mg/dl (0.2-1.3); Total Protein 6.6 g/dl (6.3-8.2); eGFR > 60.00
[2024-10-04 06:13] LABS: APTT 46.9 Sec (23.4-35.0)
[2024-10-04] MEDS: DDAVP 55.5 MCG IV (06:34)
== END 2024-10-04 07:35 | disposition short-term general hospital (02) ==
LOC: EMR 04:36
PROVIDERS: EMERGENCY PHYSICIAN Emergency Medicine; FAMILY PHYSICIAN Family Medicine
DX: S06.5XAA Traumatic subdural hemorrhage with loss of consciousness status unknown, initial encounter (principal); W19.XXXA Unspecified fall, initial encounter; I45.6 Pre-excitation syndrome; J44.9 Chronic obstructive pulmonary disease, unspecified; K21.9 Gastro-esophageal reflux disease without esophagitis; I10 Essential (primary) hypertension; E78.00 Pure hypercholesterolemia, unspecified; F32.9 Major depressive disorder, single episode, unspecified; F11.20 Opioid dependence, uncomplicated; F17.200 Nicotine dependence, unspecified, uncomplicated; Z79.02 Long term (current) use of antithrombotics/antiplatelets; Z79.82 Long term (current) use of aspirin; Z86.73 Personal history of transient ischemic attack (TIA), and cerebral infarction without residual deficits; Z86.79 Personal history of other diseases of the circulatory system; Z90.79 Acquired absence of other genital organ(s)
CPT/HCPCS: 99284; 96365; 96375; 70450; 70486; 80053; 85025; 85610; 85730; 86850; 86900; 86901; J2597

== ENCOUNTER → 2024-10-18 09:55 | Outpatient (REF) | payer OTHER, SELFPAY | LOC: RAD 09:55 | PROVIDERS: ATTENDING PHYSICIAN Nurse Practitioner Family; FAMILY PHYSICIAN Family Medicine; REFERRING PHYSICIAN Neurological Surgery | DX: S06.9XAA Unspecified intracranial injury with loss of consciousness status unknown, initial encounter (principal) | CPT/HCPCS: 70450 ==

== ENCOUNTER → 2024-10-27 09:29 | Outpatient (REF) | payer OTHER, SELFPAY | LOC: PAVMRI 09:29 | PROVIDERS: ATTENDING PHYSICIAN Physician Assistant Surgical; REFERRING PHYSICIAN Psychiatry & Neurology Neurology | DX: M54.16 Radiculopathy, lumbar region (principal); M54.50 Low back pain, unspecified | CPT/HCPCS: 72148 ==

== ENCOUNTER → 2024-11-06 10:32 | Outpatient (REF) | payer OTHER, SELFPAY | LOC: HWRAD 10:32 | PROVIDERS: ATTENDING PHYSICIAN Neurological Surgery; FAMILY PHYSICIAN Family Medicine | DX: S06.9XAA Unspecified intracranial injury with loss of consciousness status unknown, initial encounter (principal) | CPT/HCPCS: 70450 ==

== ENCOUNTER 2024-11-11 22:16 | Inpatient (IN) | payer OTHER, SELFPAY ==
[2024-11-11 14:33] VITALS: BP 137/84
[2024-11-11 14:52] LABS: % Basophils 0.4 % (0-2); % Eosinophils 0.4 % (0-6); % Immature Granulocytes 0.3 % (0-0.5); % Lymphocytes 20.5 % (20.5-51.1); % Monocytes 11.5 % (1.7-9.3); % Neutrophils 66.9 % (42.2-75.2); Absolute Monocytes 1.1 10^3/uL (0.1-0.6); Absolute Neutrophils 6.4 10^3/uL (1.4-6.5); Hematocrit 36.1 % (39.0-52.0); Hemoglobin 11.6 g/dL (13.0-18.0); Mean Corp Hgb Conc. 32.1 g/dL (33.0-37.0); Mean Corpuscular Hgb 27.6 pg (27.0-31.0); Mean Corpuscular Volume 85.7 fL (80.0-94.0); Mean Platelet Volume 9.3 fL (7.4-10.4); Nucleated Red Blood Cells % 0 % (-); Platelet Count 204 10^3/uL (130-400); Red Blood Cell Count 4.21 10^6/uL (4.70-6.10); Red Cell Dist. Width 13.7 % (11.5-14.5); White Blood Cell Count 9.6 10^3/uL (4.8-10.8)
[2024-11-11 15:11] LABS: ALT (SGPT) < 10 U/L (0-50); AST (SGOT) 23 U/L (17-59); Alkaline Phosphatase 78 U/L (38-126); Blood Urea Nitrogen 15 mg/dl (9-20); Calcium 9.4 mg/dl (8.4-10.2); Carbon Dioxide 25 mmol/L (22-30); Chloride 96 mmol/L (98-107); Glucose 109 mg/dl (70-99); Sodium 129 mmol/L (135-145); Total Bilirubin 0.9 mg/dl (0.2-1.3); Total Protein 6.6 g/dl (6.3-8.2); eGFR > 60.00
[2024-11-11 15:58] VITALS: BP 137/82
--- NOTE | 2024-11-11 16:25 | ED.GENMED ---
History of Present Illness
General
Chief Complaint: Fatigue
Source: patient, spouse and family
Exam Limitations: none
Time Seen by Provider: 11/11/24 15:51
Nursing documentation reviewed up to this point in time: agreed with
History of Present Illness
History of Present Illness:
Paient to ED for eval of weakness. states he was transferred from [facility] to [place] on 11/04 for bilateral subdural hematomas. He was on plavix at that time. Stablized at [facility] and dicharged home on 11/07. states for the past 24
hours he has been increasingly fatigued. Yesterday went back to bed after lunch and did not get up until late morning. At that time felt that he was increasingly weaker. Denies fever/chills . Histsory of chronic back pain and is not
sure that he did not take extra oxycodone. He denies any pain. Brought to ED by family for eval
Past History
Past History
ED Past Medical History: Arrthythmia (WPW), COPD, CVA, GERD, HTN, Hypercholesterolemia, Psychiatric (MDD) and Other (osteoarthitis, chronic low back pain/narcotic dependent)
ED Past Surgical History: Cardiac (Ablation for WPW), Urological (Prostatectomy) and Other (Hernia repair)
Social History
Tobacco: Smoker (1/2ppd)
Alcohol: Daily (Wine)
Personal:
Living: with family
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
Family History
Family History: Other (reviewed and non-contributory)
Review of Systems
Review of Systems
Allergies reviewed?: Yes
All Other Systems: ROS reviewed and negative except as documented in HPI and ROS
Constitutional: Reports fatigue
EENT: Reports no symptoms
Respiratory: Reports cough (Hx COPD)
Cardiac: Reports no symptoms
ABD/GI: Reports no symptoms
: Reports no symptoms
Musculoskeletal: Reports no symptoms
Skin: Reports no symptoms
Neurological: Reports weakness
Psychiatric: Reports no symptoms
Phy Exam
General Physical Exam
General Presentation: no apparent distress
General age: appears stated age
General Skin: warm and dry
General Habitus: normal
General Mental: alert
Cardiovascular Exam
Cardiovascular Exam: regular rate/rhythm and no edema
Pulmonary Exam
Pulmonary Exam: no respiratory distress and decreased breath sounds
Gastrointestinal Exam
Gastrointestinal Exam: normal bowel sounds, non tender, soft and no organomegaly
Musculoskeletal Exam
Musculoskeletal Exam: full ROM and neuro vasc intact
Skin Exam
Skin Exam: normal color, warm/dry and no rash
Psychiatric Exam
Psychiatric Exam: normal mood/affect
Course
Orders/Labs/Results
Orders:
Orders
11/11/24 Breakfast
Cholesterol Lowering
At Your Request: Full Participation
Cholesterol Lowering: Sodium, 2 Gram
11/11/24 14:[address] [CT Head W/o Iv Contrast] Urgent
Comment:
Reason For Exam: fatigue, recent intracranial hemorrhage
11/11/24 14:43
Complete Blood Count/With Diff Urgent
Comprehensive Metabolic Panel Urgent
11/11/24 16:23
0.9% Sodium Chloride 1000 ml [Nss] 1,000 ml IV BOLUS
11/11/24 16:24
Electrocardiogram (*1) Urgent
Reason for Study: Fatigue / Weakness
11/11/24 16:45
CR Chest - 2 Views Urgent
Comment:
Reason For Exam: SOB
11/11/24 16:58
COVID-19 Antigen Urgent
Source: Nasal Swab
Influenza A+B Rapid Molecular Urgent
JUAN Source: Nasal Swab
Specimen Description:
11/11/24 21:05
Urinalysis Reflex To Culture Urgent
Date Specimen was Collected: 11/11/24
Time Specimen was Collected: 21:03
Urine Microscopic Reflex Cult Urgent
11/11/24 21:08
0.9% Sodium Chloride 500 ml [Nss] 500 ml IV BOLUS
11/11/24 21:30
0.9% Sodium Chloride 1000 ml [Nss] 1,000 ml IV 125 mls/hr
11/11/24 22:00
Admit/Transfer Patient As Directed
Co-Sign Provider:
Level of Care: Inpatient admission
Assign to:: Medical/Surgical
Physician / Group: RUTH
Diagnosis: GENERALIZED WEAKNESS
Reason for Hospitalization: GENERALIZED WEAKNESS
HYPONATREMIA
Expected length of stay greater than two midnights?: Yes
ELOS- Estimated Length of Stay in days: 3
I certify the patient meets the requirements for IP care: Yes
Flush (0.9% Sodium Chloride) [Flush (Nss)] See Dose Instructions IV PER PROTOCOL
11/11/24 22:02
PRN Pain Medication Management As Directed
May give lesser potent ordered pain med per pt: Yes
preference::
Protocol:: Medication orders for pain may be administered in a
manner that supports deferring to patient preference
when the pt is:
- Requesting an ordered lesser potent pain medication.
Least to most potent pain medications are defined
as: acetaminophen < NSAID < tramadol < opioids
(morphine, oxycodone, hydromorphone).
- Requesting a lesser dose of the same medication IF
ORDERED.
- Requesting a less intrusive route of administration
if both routes are prescribed by the provider (PO <
IV).
11/11/24 22:04
Code Status As Directed
Resuscitation Status: Full Code
11/11/24 22:13
CT Chest PE Study Stat
Comment:
Reason For Exam: sob
CefTRIAXone [Rocephin] 1,000 mg IV NOW STA
11/11/24 22:14
Sterile Water [Sterile Water For Injection] 10 ml IV NOW STA
11/11/24 22:36
Troponin I Stat
11/11/24 23:52
Acetaminophen [Tylenol] 650 mg PO Q4HPRN PRN
Bisacodyl [Dulcolax] 10 mg RECTAL [id number] PRN
Docusate W/Senna [Senokot-S] 1 tablet PO BIDPRN PRN
Ipratropium/Albuterol Sulfate [Duoneb] 3 ml INH R Q4HPRN PRN
Polyethylene Glycol Powder [Miralax] 17 grams PO DAILYPRN PRN
11/11/24 23:52
Activity As Directed
Activity Level: As Tolerated
Vital Signs As Directed
Frequency: Per unit guidelines
DX Deep Vein Thrombosis Video Routine
11/12/24 06:00
Occupational Therapy Consult [Ot Eval And Treat] IN AM
Physical Therapy Consult [Pt Eval And Treat] IN AM
Activity Level: As Tolerated
11/12/24 06:11
Basic Metabolic Panel IN AM
11/12/24 08:00
Azithromycin [Zithromax] 250 mg PO DAILY
Budesonide/Formoterol 80/4.5 [Symbicort 80/4.5 Mcg Inhaler] 2 puff INH R BID
Carbidopa/Levodopa Cr [Sinemet Cr 25-100 (Extended Release)] 1 tablet PO BID
Duloxetine Delayed Release [Cymbalta Delayed Release] 30 mg PO BID
Lisinopril [Zestril] 10 mg PO DAILY
Pantoprazole [Protonix] 40 mg PO DAILY
Paroxetine [Paxil] 20 mg PO DAILY
11/12/24 18:00
Atorvastatin [Lipitor] 10 mg PO QPM
11/12/24 22:00
CefTRIAXone [Rocephin] 1,000 mg IV Q24H
11/13/24 06:00
Basic Metabolic Panel IN AM
11/14/24 06:00
Basic Metabolic Panel IN AM
Abnormal Lab Results
11/11/24 11/11/24
14:43 21:05
RBC 4.21 L 10^6/uL
(4.70-6.10)
Hgb 11.6 L g/dL
(13.0-18.0)
Hct 36.1 L %
(39.0-52.0)
MCHC 32.1 L g/dL
(33.0-37.0)
Absolute Monos (auto) 1.1 H 10^3/uL
(0.1-0.6)
Monocytes % 11.5 H %
(1.7-9.3)
Sodium 129 L mmol/L
(135-145)
Chloride 96 L mmol/L
(98-107)
Glucose 109 H mg/dl
(70-99)
Urine Ketones 1+ A
(Negative)
Urine Bacteria (Reflex) Few A
(Negative)
Urine Albumin (Reflex) 3+ A
(Neg - Trace)
11/11/24 14:43
11/11/24 14:43
Vital Signs
Initial and Last Documented VS:
Initial Vital Signs
Temp Pulse Resp BP Pulse Ox
97.7 F 89 18 137/84 94
11/11/24 14:33 11/11/24 14:33 11/11/24 14:33 11/11/24 14:33 11/11/24 14:33
Last Documented Vital Signs
Temp Pulse Resp BP Pulse Ox
97.7 F 99 13 152/85 94
11/12/24 15:05 11/12/24 19:35 11/12/24 19:35 11/12/24 15:05 11/12/24 19:35
*Critical Care Note
Total Time (30-74mins, 75-104mins- exclusive of procedures): Not Applicable
Update Note
Update Note:
Patient brought to ED by family for increased weakness and confusion. Discharged home from [place] after admission for bilateral subdural hematoma. CT today without any new bleeding. Labs baseline however mucous membranes are dry. Decreased
urine output. Will admit to hospitalist service for weakness and dehydration. is agreeable to plan.
ED Attending Note
-
Portions of this chart may have been created with voice recognition software.� Occasional wrong word or��sound alike� substitutions may have occurred due to the inherent limitations of voice recognition software.
Discharge Plan
Departure
Patient Disposition: Admit
Date of Disposition: 11/11/24
Time of Disposition: 21:19
Presentation/result/management discussed w/ accepting MD/DO: Hospitalist
Patient with high blood pressure during this ER visit?: No
Condition: Fair
Covid-19: Not Applicable
Discharge Problem:
Weakness, Dehydration
Interventions
Interventions:
*Risk Screen - Suicide Last Done: 11/11/24 14:33
*General Assessment Last Done: 11/11/24 14:33
*Neglect/Abuse Screening Last Done: 11/11/24 14:33
ED- Fall Risk Assessment Last Done: 11/12/24 00:10
*ED COVID-19 Vaccine History Last Done: 11/12/24 00:10
*Nursing Disposition Last Done: 11/12/24 00:10
Discharge Date and Time
Discharge Date/Time: 11/12/24 00:11
[2024-11-11] MEDS: NSS 1000 IV ×2 (16:57→21:26)
[2024-11-11 17:32] LABS: COVID-19 Antigen Negative (Negative)
[2024-11-11 18:00] VITALS: BP 135/77
[2024-11-11 19:00] VITALS: BP 134/82
[2024-11-11 20:00] VITALS: BP 142/89
[2024-11-11 21:17] VITALS: BP 159/87
[2024-11-11 21:21] LABS: Urine Albumin 3+ (Neg - Trace); Urine Bilirubin Negative (Negative); Urine Character Clear (Clear); Urine Color Yellow; Urine Glucose Negative (Negative); Urine Ketone 1+ (Negative); Urine Leukocyte Negative (Negative); Urine Nitrite Negative (Negative); Urine Occult Blood Negative (Negative); Urine Specific Gravity 1.015 (<1.030); Urine Urobilinogen Negative (Neg - 1+)
[2024-11-11 21:27] LABS: Urine Bacteria Few (Negative); Urine Hyaline Cast 0-2 /LPF (0-2); Urine Red Blood Cell 0-2 /HPF (0-2); Urine Squamous Cell 0-2 /LPF (Few); Urine White Cell 0-2 /HPF (0-5)
--- NOTE | 2024-11-11 21:28 | HPS.HSE ---
Family Physician
-
Family Physician: Facundo Carreon
Chief Complaint
-
confusion
History of Present Illness
78-year-old with past medical history for COPD, chronic pain disorder, GERD, hyperlipidemia, TIA, PAD, subdural hematoma, depression, restless leg syndrome presented to us with generalized weakness and confusion. Patient laid down to take a nap
yesterday afternoon . Here he wanted to get up as today .today morning, was not able to get him up. Patient seemed very confused. Patient not able to provide any history
. states he was transferred from here to [place] on 11/04 for bilateral subdural hematomas. He was on plavix at that time. Stablized at [facility] and dicharged home on 11/07.
On arrival he was noted hyponatremia. Patient received normal saline in the ER admitting for further management.
Medical History
Past Medical History
Past Medical History: Reports Other
Additional Past Medical History:
COPD
Chronic pain disorder
GERD
Cerebral aneurysm
Peripheral insufficiency
Hyperlipidemia
Chronic bronchitis
AAA
TIA
PAD
Subdural hematoma
Depression
Memory loss restless leg syndrome
Past Surgical History: Reports Other
Additional Past Surgical History:
Implanted pain management device
Total
Back surgery
Vertebroplasty
Cardiac operation
Social History
Unable to obtain full social history at this time due to: Acuity
Family History
Family History: Not pertinent
Allergies / Home Medications
Allergies reflects when Allergies were last updated in [employer].
Home Medications with original date entered in [employer]
Allergy/Medication List:
Allergies
Allergy/AdvReac Type Severity Reaction Status Date / Time
mold Allergy sinus Verified 11/11/24 14:33
congestion
Home Medications
atorvastatin 10 mg tablet 10 mg PO QPM High cholesterol 12/03/20
lisinopril 10 mg tablet 10 mg PO DAILY Blood pressure 12/03/20
omeprazole 20 mg capsule,delayed release 20 mg PO DAILY Gastrointestinal issue 12/03/20
carbidopa ER 25 mg-levodopa 100 mg tablet,extended release 1 tab PO DAILY Neurological Condition 09/20/22
carbidopa ER 25 mg-levodopa 100 mg tablet,extended release 2 tab PO HS Neurological Condition 09/20/22
duloxetine 30 mg capsule,delayed release 30 mg PO DAILY RLS 05/07/24
duloxetine 30 mg capsule,delayed release sprinkle 30 mg PO HS RLS 05/07/24
guaifenesin 600 mg tablet, extended release 12 hr (Mucinex) 600 mg PO DAILY 05/07/24
paroxetine HCl 10 mg tablet 20 mg PO DAILY Mental Health/Anxiety 05/07/24
aspirin 81 mg chewable tablet 81 mg PO DAILY #90 tabs 05/10/24
clopidogrel 75 mg tablet 75 mg PO DAILY #90 tabs 05/10/24
fluticasone fur. 100 mcg-umeclid 62.5 mcg-vilant 25 mcg inhalat.powder (Trelegy Ellipta) 1 inh inhalation DAILY Lung/Breathing Issues 05/10/24
multivitamin 1 tab PO DAILY 05/10/24
nicotine 21 mg/24 hr daily transdermal patch 21 mg transdermal DAILY #7 ea 05/10/24
oxycodone-acetaminophen 5 mg-325 mg tablet 1 tab PO Q8H PRN severe pain #10 tabs 06/29/24
Senokot 1 dose PO DAILY 07/20/24
levalbuterol HCl 1.25 mg/0.5 mL solution for nebulization 1.25 mg inhalation DAILY 07/20/24
levalbuterol tartrate 45 mcg/actuation aerosol inhaler 2 inh inhalation Q6H PRN shortness of breath 07/20/24
Review of Systems
-
Unable to obtain full review of systems at this time due to: Acuity
Physical Exam
Vital Signs
Vital Signs
Temp Pulse Resp BP Pulse Ox
100.3 F 105 23 159/87 92
02/02/25 21:17 11/11/24 21:17 11/11/24 21:17 11/11/24 21:17 11/11/24 21:17
Physical Exam
General: Well Developed, Well Nourished and No Apparent Distress
HEENT: NormoCephalic, Moist mucous membranes and Atraumatic
Respiratory: Clear
Cardiac: S1/S2 and Regular Rhythm; No Murmur or Rub
GI: Soft, Non Tender, Non Distended and Normal Bowel Sounds; No Organomegaly
Rectal: Deferred by Provider
Musculoskeletal: No Clubbing, No Cyanosis and No Edema
Skin: No Rash
Neuro: Nonfocal/grossly intact
Psych: Confused
Laboratory Results
-
11/11/24 14:43
11/11/24 14:43
Laboratory Results
Total Bilirubin 0.9 mg/dl (0.2-1.3) 11/11/24 14:43
AST 23 U/L (17-59) 11/11/24 14:43
ALT < 10 U/L (0-50) 11/11/24 14:43
Alkaline Phosphatase 78 U/L (38-126) 11/11/24 14:43
Data Reviewed
-
Diagnostic Radiology: Report Reviewed by me
CT Scan: Report Reviewed by me
Lab Data: Labs Reviewed by me
Impression/Plan
-
# Metabolic encephalopathy unclear cause concern for pneumonia
-UA negative
-Chest x-ray with no acute disease
-head CT with impression of Evolution of moderate size left-sided now subacute subdural hematoma with overall decreased in 'acute' high attenuation component in comparison to recent prior CT, no significant change in subdural volume.Evolving now
slightly smaller small right-sided subdural hematoma.No new recent intracranial hemorrhage.
-Flu and COVID-negative
-Continue to monitor
-obtain CT of chest
-ceftriaxone continued
-obtain procal
#dehydration/fatigue weakness
-Normal saline continued
-PT/OT consult
#anemia of chronic disease
-hgb stable at 11.6
-no active bleeding
-ctm
#subdural hematoma
-stable as per CT
#acute on chronic hyponatremia likely from dehydration
-na 129
-Normal saline continued
-BMP in a.m.
#Restless leg.
- carbidopa levodopa 25-100 bid
- duloxetine 30 bid
#. PAD/AAA
# Hyperlipidemia
-Statin continued
# Essential hypertension
-Lisinopril continued with hold parameters
#history of COPD
-Nebs from home continued
-He is on azithromycin prophylactically
# GERD
-PPI continued
DVT - PPX -scd
Code status - Full
--- NOTE | 2024-11-11 22:18 | W.PN.UPDATE ---
Update Note
Progress Note Update
Patient seen in conjunction with SHYANNE. I agree with the findings on history and physical. I concur with the assessment and plan.
Briefly this is a 78-year-old male with past medical history significant for COPD not on home O2, possible Parkinson, hypertension, depression presenting to the emergency department from home with altered mental status and weakness.
Patient unable to provide any history. History is obtained from who is the primary caregiver notes that the patient essentially became a weaker and sleepy since yesterday. This morning if she was unable to arouse him despite repeated trials.
He is awake but barely communicative. Responds only with one-word answers. Cannot carry out any prolonged conversation. May be conversationally dyspneic but unclear. She did not notice any coughing. No mention of fevers chills rigors or
diaphoresis at home. Patient denied having chest pain. He did endorse nausea. He denies abdominal pain vomiting or diarrhea. He was unable to respond to any further prompting.
Patient was recently at [facility] with a subdural hematoma. Aspirin discontinued. Plavix discontinued in the interim.
Here in the emergency department he was normotensive with a blood pressure of 160/80, he was tachycardic to the 110s respiratory rate is in the mid 20s to low 30s. Tmax was 100.3 satting around 90 to 92% on room air. ECG showed normal sinus rhythm
at a rate of 91 without any significant changes compared to prior. Chest x-ray shows some chronic interstitial changes but no acute infiltrates noted. Troponin not obtained. UA was unremarkable. COVID and flu negative. CBC completely
unremarkable. Electrolytes only notable for a sodium of 129 downtrending from around 135 a few weeks ago. CT of the head shows evolution of the subdural hematoma with smaller size compared to prior.
On my exam initially patient had trouble lifting the right hand but ultimately was able to do so. He appeared overall lethargic rather than with any focal deficits. He was tachypneic but not diaphoretic. Was tachycardic without any rubs or
gallops. He had occasional wheezes at the bases bilaterally. He had crackles on the left lower base. Unable to auscultate the right lower base appropriately due to patient's body positioning. No edema, no JVD. No joint swelling or tenderness.
No skin findings to suggest cellulitis.
Overall picture is of severe lethargy with some metabolic encephalopathy and suspicion for brewing pneumonia versus medication and associated lethargy.
1. Weakness/lethargy - High concern for early pulm infection given w/o despite his lethargy. RR around 25 and deep.
- admit to med/surg
- will start ceftriaxone iv for presumed pna
- blood cultures if spike fever > 100.5
- check procalcitonin
- check CTA to rule out PE given persistent tachycardia despite iv fluids (possibly impending fever)
- will start nebs prn and RTC
- start prednisone 40mg daily
- hold oxycodone for now
- supplemental o2 to keep sat >93 and reduce wob
- mri in am to rule out subacute stroke
2. Hyponatremia - 129, from recent baseline 134. W/ subdural possibly siadh vs dehydration. Unlikely etiology of weeakness
- continue iv fluids and re-evaluate after sufficient hydration
3. CAD
- holding aspirin/plavix for recent SDH
- check timing of restart with spouse
- continue statin
- continue lisinopril
4. COPD - wheezing mostly at the r lower base intermittently.
- mild exacerbation
- give prednisone daily in addition to chronic azithromycin
DVT PPX - SCDs for now, anticoagulant may started if SDH demonstrates stability after mri
Code status - Full
[2024-11-11] MEDS: STERILE WATER FOR INJECTION 10 ML IV (22:35)
[2024-11-11] MEDS: ROCEPHIN 1000 MG IV (22:35)
[2024-11-11 23:09] LABS: Troponin I < 0.012 ng/ml
[2024-11-12 00:22] VITALS: BP 152/93; BMI 21.0
[2024-11-12] MEDS: DECADRON 6 MG IV (00:30)
--- NOTE | 2024-11-12 01:58 | PTCARENOTE ---
pt admitted to rm 319-1 and was pulled over from stretcher to bed. Pt aaox1-2 (disoriented to time), VSS, and no c/o pain. sacrum blanchable red, silicone border foam placed. Pt confused but able to answer some questions appropriately. Pt oriented
to room, call bolaños within reach, and bed alarm in place. Plan of care ongoing.
[2024-11-12] MEDS: NSS 1000 IV ×2 (05:57→16:37)
[2024-11-12 06:51] LABS: Blood Urea Nitrogen 13 mg/dl (9-20); Calcium 9.2 mg/dl (8.4-10.2); Carbon Dioxide 17 mmol/L (22-30); Chloride 99 mmol/L (98-107); Estimated Creatinine Clearance 66 ml/min; Glucose 113 mg/dl (70-99); Potassium 4.3 mmol/L (3.5-5.1); Sodium 131 mmol/L (135-145); eGFR > 60.00
[2024-11-12 07:12] LABS: Procalcitonin 0.05 ng/ml (0.0-0.25)
[2024-11-12] MEDS: SYMBICORT 80/4.5 MCG INHALER 2 PUFF INH ×2 (07:24→19:32)
[2024-11-12] MEDS: SPIRIVA RESPIMAT 2.5 MCG 2 PUFF INH (07:24)
[2024-11-12] MEDS: PROTONIX 40 MG PO (07:54)
[2024-11-12] MEDS: CYMBALTA DELAYED RELEASE 30 MG PO ×2 (07:54→21:04)
[2024-11-12] MEDS: PAXIL 20 MG PO (07:54)
[2024-11-12] MEDS: ZITHROMAX 250 MG PO (07:54)
[2024-11-12] MEDS: DELTASONE 40 MG PO (07:55)
[2024-11-12] MEDS: ZESTRIL 10 MG PO (07:55)
[2024-11-12] MEDS: SINEMET CR 25-100 (EXTENDED RELEASE) 1 TABLET PO ×2 (07:55→21:04)
[2024-11-12 07:57] VITALS: BP 162/104
--- NOTE | 2024-11-12 10:01 | VNURNOTE ---
Chart reviewed.� Patient is current with [facility] nursing.� Will continue to follow hospital course and DC plans.
[2024-11-12 10:20] VITALS: BP 154/83; PULSE 112; O2SAT 93
--- NOTE | 2024-11-12 11:44 | CON.NEURO ---
Neuro Assessment/Plan
Assessment
again reveals a left-sided cerebral convexity subdural hematoma of predominantly iso to hypodense nature as compared to isodense to hyperdense, measuring approximately 1.4 cm in width as compared to 1.4 cm previously. Smaller likely late subacute
right-sided subdural hematoma has decreased now measuring no greater than 0.5 cm. There is no new intraparenchymal or intraventricular hemorrhage.
Decreased attenuation is again seen in the periventricular deep white matter bilaterally suggesting chronic senescent and/or small vessel related ischemic changes.
Patient presenting to this hospital with worsening of cognitive function which is being described as variable changing every approximately 12 hours in a patient with prior history of EtOH overexposure and the above demonstrated acute/subacute
subdural hematoma.
Current etiology for the patient's symptomatology does not represent seizure and instead most likely represents pressure wave secondary to subdural hematoma.
Plan
Patient is not a candidate for surgical intervention
The patient had been placed and now is off of antiseizure medications suggesting against the likelihood of seizures producing symptomatology
Would continue to gradually discontinue the patient's exposure to carbidopa/levodopa which was being utilized for restless leg syndrome, decrease to 1 pill/day
The patient is also on 2 different SSRI medications, would discontinue paroxetine due to risk of agitation with that medication, decreasing by half initially, dose of 10 mg from 20 mg
Attempt to lower steroids when possible
No clear indication patient would benefit from MRI of brain
Provide thiamine
Will follow peripherally
Consultation
Order
Date of Consultation: 11/12/24
Requesting Provider: Hospitalist
Reason for Consult: Toxic metabolic encephalopathy
Subjective/Objective
Subjective Data
Date of Service: November 12, 2024
Right handed
In the last 2 years, the patient has been described as having worsening cognition which was approximately the time at which she was last seen by his local neurologist for what was presumed to be restless leg syndrome. The patient at that time
continued his previously prescribed carbidopa/levodopa which was not being utilized for treatment of parkinsonism.
Patient in the last year has been described as having a weight loss of approximately 27 kg, by his who is the primary history provider in addition to review of the patient's medical records.
Patient has been described as having cognitive issues in the last 2 years with reduced ability to perform routine functions and being confused.
Patient discontinued driving as of March 2024 due to unsafe nature of driving according to the patient's spouse. The patient began utilizing a walker at that time as well.
In the past several months, the patient was in rehabilitation and had a similar episode to the 1 being described below. That episode spontaneously resolved without residual.
In 09/2024, the patient had a traumatic injury to the head leading to a subdural hematoma (SDH). The patient's usual combination of aspirin and clopidogrel were discontinued at that time then restarted briefly and again discontinued after his
presentation to this hospital's emergency department.
In the past 2 days, the patient has had waxing waning cognitive ability with decreased ability to rapidly express himself or to move with regards to gait at normal speed. The patient's significant other became concerned and after this problem
became worse 1 day ago, the patient was brought to this hospital's emergency department for reevaluation. There are no known modifying factors.
Of note is that the patient has a history of prior daily alcohol use and chronic use of opiates for low back pain.
Objective Data
Vital Signs
Temp Pulse Resp BP Pulse Ox
36.8 C 82 16 162/104 95
11/12/24 07:57 11/12/24 07:57 11/12/24 07:57 11/12/24 07:57 11/12/24 07:28
Lab Results
11/11/24 14:43
11/12/24 06:11
Sodium 131 mmol/L (135-145) L 11/12/24 06:11
Potassium 4.3 mmol/L (3.5-5.1) 11/12/24 06:11
BUN 13 mg/dl (9-20) 11/12/24 06:11
Glucose 113 mg/dl (70-99) H 11/12/24 06:11
Calcium 9.2 mg/dl (8.4-10.2) 11/12/24 06:11
Patient Allergies
mold Allergy (Verified 11/11/24 14:33)
sinus congestion
Review of Systems
-
Unable to obtain full review of systems at this time due to: Dementia
History Source: Patient
All other systems: Reviewed and negative
Neuro: Negative Dizzy or Headache
Physical Exam
-
General: No Apparent Distress and Appears Stated Age
Eyes: Able to visualize OU, Round OU, [place] Conjunctivae and No Ptosis
HEENT: Anicteric and Moist Mucous Membranes
Neck: Full Range of Motion
Respiratory: No Dyspnea
Cardiac: No JVD
GI: Non-distended
Skin: Unremarkable
Extremities: No Clubbing, No Cyanosis and No Edema
Psych: Negative Intact Judgement/Insight
Extended Neurological Exam
Mood & Affect: Depressed
Attention Span & Concentration: Awake, Alert, Interactive, Severe Difficulty with 2 Step Request and Other (Mild difficulty with single step requests; significant bradyphrenia)
Memory: Able to Recall (Own name), Reduced (For recall of month and year as well as location) and Unable to Recall Personal History
Tremor: Hand Tremor Absent and Head Tremor Absent
Involuntary Movement: None
Speech: Quality Unremarkable and Severely Reduced Output
Cranial Nerve II: Left Eye: Pupillary Reactivity Unremarkable, Pupillary Size Unremarkable and Visual [place] Intact
Cranial Nerve II: Right Eye: Pupillary Reactivity Unremarkable, Pupillary Size Unremarkable and Visual [place] Intact
Cranial Nerves III, IV, : Extraocular Movement: Extraocular Movement Full in all Directions
Cranial Nerve V: Facial Sensation: Unable to Assess
Cranial Nerve VII: Facial Symmetry: Normal Facial Symmetry
Cranial Nerve VIII: Hearing: Unremarkable Hearing to Normal Conversational Volume
Cranial Nerves IX, X: Palate Movement: Palate Elevation Symmetric
Cranial Nerve XI: Shoulder Shrug: Unremarkable
Cranial Nerve XII: Tongue Protusion: Midline
Muscle Strength, Overall: Full Throughout
Muscle Bulk & Tone: Bulk Unremarkable and Tone Unremarkable
Pronator Drift: Drift in Right Upper Extremity and No Drift in Lower Extremities; Negative Drift in Left Upper Extremity
Deep Tendon Reflexes: Absent Throughout
Cold Sensation: Unable to Assess
Vibration Sensation: Unable to Assess
Touch Sensation: Unremarkable
Coordination: Reaches for Objects without Difficulty
Babinski Sign: Absent Bilaterally
Data Reviewed
-
CT Head: Report Reviewed and Image Reviewed
Labs: Ordered and Report Reviewed
Reviewed with: Physician, Patient and Family
Old Records: Summarized
Medications
-
Active Medications
Generic Name Dose Route Start Last Admin
Trade Name Freq PRN Reason Stop Dose Admin
Acetaminophen 650 mg 11/11/24 23:52
Acetaminophen 325 Mg Tablet PO 12/09/24 23:51
Q4HPRN PRN
mild pain/PACHECO/temp> 100.4F
Albuterol/Ipratropium 3 ml 11/11/24 23:52
Ipratropium 0.5/Albuterol 3 Mg (3 Ml Ampul) INH
R Q4HPRN PRN
sob/wheezing
Protocol
Atorvastatin Calcium 10 mg 11/12/24 18:00
Atorvastatin (Lipitor) 10 Mg Tablet PO 12/10/24 17:59
QPM CHERYL
Azithromycin 250 mg 11/12/24 08:00 11/12/24 07:54
Azithromycin 250 Mg Tablet PO 250 mg
DAILY CHERYL Administration
Bisacodyl 10 mg 11/11/24 23:52
Bisacodyl 10 Mg Rectal Suppository RECTAL 12/09/24 23:51
[id number] PRN
constipation
Budesonide/Formoterol Fumarate 2 puff 11/12/24 08:00 11/12/24 07:24
Symbicort Inhaler 80/4.5 INH 12/10/24 07:59 2 puff
R BID CHERYL Administration
Carbidopa/Levodopa 1 tablet 11/12/24 08:00 11/12/24 07:55
Carbidopa (25 Mg) Levodopa (100 Mg) Extended Release Tablet PO 12/10/24 07:59 1 tablet
BID CHERYL Administration
Duloxetine HCl 30 mg 11/12/24 08:00 11/12/24 07:54
Duloxetine Delayed Release 30 Mg Capsule PO 12/10/24 07:59 30 mg
BID CHERYL Administration
Sodium Chloride 1,000 mls @ 125 mls/hr 11/11/24 21:30 11/12/24 05:57
Nss IV 1,000 mls
.Q8H CHERYL Administration
Lisinopril 10 mg 11/12/24 08:00 11/12/24 07:55
Lisinopril 10 Mg Tablet PO 12/10/24 07:59 10 mg
DAILY CHERYL Administration
Pantoprazole Sodium 40 mg 11/12/24 08:00 11/12/24 07:54
Pantoprazole 40 Mg Delayed Release Tablet PO 12/10/24 07:59 40 mg
DAILY CHERYL Administration
Paroxetine HCl 20 mg 11/12/24 08:00 11/12/24 07:54
Paroxetine 20 Mg Tablet PO 12/10/24 07:59 20 mg
DAILY CHERYL Administration
Polyethylene Glycol 17 grams 11/11/24 23:52
Polyethylene Glycol Powder 17 Grams Packet PO 12/09/24 23:51
DAILYPRN PRN
constipation
Prednisone 40 mg 11/12/24 08:00 11/12/24 07:55
Prednisone 20 Mg Tablet PO 12/10/24 07:59 40 mg
DAILY CHERYL Administration
Senna/Docusate Sodium 1 tablet 11/11/24 23:52
Docusate W/Senna (Hilda-Colace) Tablet PO 12/09/24 23:51
BIDPRN PRN
constipation
Sodium Chloride 0 flush 11/11/24 22:00
Sodium Chloride 0.9% (Flush) Syringe IV 12/09/24 21:59
PER PROTOCOL CHERYL
Tiotropium [place] 2 puff 11/12/24 08:00 11/12/24 07:24
Tiotropium (Spiriva Respimat) 2.5 Mcg Inhaler INH 12/10/24 07:59 2 puff
R DAILY CHERYL Administration
Home Medications
�Medication �Instructions �Recorded
atorvastatin 10 mg tablet 10 mg PO QPM High cholesterol 12/03/20
lisinopril 10 mg tablet 10 mg PO DAILY Blood pressure 12/03/20
omeprazole 20 mg capsule,delayed 20 mg PO DAILY Gastrointestinal 12/03/20
release issue
carbidopa ER 25 mg-levodopa 100 mg 1 tab PO BID Neurological Condition 09/20/22
tablet,extended release
duloxetine 30 mg capsule,delayed 30 mg PO BID RLS 05/07/24
release
guaifenesin 600 mg tablet, 600 mg PO DAILY 05/07/24
extended release 12 hr (Mucinex)
paroxetine HCl 10 mg tablet 20 mg PO DAILY Mental 05/07/24
Health/Anxiety
fluticasone fur. 100 mcg-umeclid 1 inh inhalation DAILY 05/10/24
62.5 mcg-vilant 25 mcg Lung/Breathing Issues
inhalat.powder (Trelegy Ellipta)
multivitamin 1 tab PO DAILY 05/10/24
levalbuterol HCl 1.25 mg/0.5 mL 1.25 mg inhalation DAILY 07/20/24
solution for nebulization
Tylenol 1,000 mg PO PRN PRN mild pain 11/11/24
albuterol 90 mcg/actuation aerosol 90 mcg inhalation PRN PRN sob 11/11/24
inhaler
azithromycin 250 mg tablet 250 mg PO DAILY 11/11/24
oxycodone-acetaminophen 5 mg-325 1 tab PO Q6H 11/11/24
mg tablet
Past History
Past History
ED Past Medical History: Arrthythmia (WPW), COPD, CVA, GERD, HTN, Hypercholesterolemia, Psychiatric (MDD), Other (PNA, RLS, Colonic polyposis, Osteoporosis, SDH 09/2024 non-surgical) and Other (osteoarthritis, chronic low back pain/narcotic
dependent)
ED Past Surgical History: Cardiac (Ablation for WPW), Orthopedic (vertebroplasty 2023, L1-2 back surgery 2020), Urological (Prostatectomy) and Other (Hernia repair 2023, Implanted pain management device 06/2017, MANOHAR Rodriguez 05/07/24)
Social History
Tobacco: Smoker (12ppd)
Alcohol: Daily (Wine)
Personal:
Living: with family
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
Family History
Family History: Other (reviewed and non-contributory)
--- NOTE | 2024-11-12 11:46 | W.PN.HOSP.TC ---
Today's Communication/Plan
-
Neurology consult
Stop ceftriaxone
Fluid restriction
Assessment / Plan
Assessment / Plan
Gen-awake, alert, NAD, not oriented
HEENT-NC, AT, anicteric, clear oral mm
Neck-supple
CV-reg, no M, +S1/S2
Lungs-very mild expiratory wheezing
Abd-soft, NT, ND
Ext-no edema
Musculoskeletal-no cyanosis, clubbing
Skin-warm and dry
Neuro-grossly non-focal
Psych-calm, cooperative
Acute TME -symptoms started on Tuesday. Information gathered by speaking with at the bedside. No obvious medical explanation. Doubt infection. Discontinue IV antibiotics.
Given recent subdural hematoma, rule out neurologic etiology. Rule out stroke. Consult neurology.
Bilateral subdural hematoma -treated in [facility], Dr. Mon. I did inform him of the patient's admission.
Essential hypertension -with hypertensive urgency. Resume lisinopril and recheck blood pressure.
Chronic hyponatremia -sodium stable at 131. 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 Mild fluid restriction.
CAD -stable.
Abdominal aortic aneurysm -underwent repair in April [address] Rodriguez. Was on aspirin and Plavix since then but discontinued last week due to subdural hematoma.
Mild acute COPD exacerbation -continue inhalers, steroids. CT chest and chest x-ray without obvious pneumonia. Stop ceftriaxone. Continue chronic azithromycin.
Restless leg syndrome
Chronic pain syndrome/chronic opiate dependence -due to low back pain. cannot rule out patient accidentally taking excessive opiates prior to admission.
Full code
PT/OT -SNF recommended.
updated at the bedside.
Anticipated Discharge: 24 - 48 hours
Subjective/Interval History
-
Date of Service: November 12, 2024
Patient seen and examined. Tries to answer questions but unable to do so. Looks confused. at the bedside. No complaints.
Objective Data
-
Labs:
Laboratory Results
11/12/24
06:11
Sodium 131 L
Potassium 4.3
Chloride 99
Carbon Dioxide 17 L
BUN 13
Creatinine 0.7
Glucose 113 H
Calcium 9.2
Vital Signs:
Vital Signs
Temp Pulse Resp BP Pulse Ox
98.2 F 82 16 162/104 95
11/12/24 07:57 11/12/24 07:57 11/12/24 07:57 11/12/24 07:57 11/12/24 07:28
Review of Systems
-
History Source: Patient
All other systems: Reviewed and negative
[2024-11-12 11:51] VITALS: BP 154/83; PULSE 112; O2SAT 93
[2024-11-12] MEDS: VITAMIN B1 100 MG PO (14:26)
[2024-11-12 14:48] LABS: TSH Reflex To Free T4 0.57 uIU/ml (0.47-4.68)
[2024-11-12 14:53] LABS: Ferritin 84.5 ng/ml (17.9-464.0)
[2024-11-12 15:05] VITALS: BP 152/85
[2024-11-12 15:24] LABS: Folate > 20.0 ng/ml (2.76-20); Vitamin B12 693 pg/ml (239-931)
[2024-11-12] MEDS: LIPITOR 10 MG PO (17:31)
[2024-11-12 20:43] LABS: Erythrocyte Sed Rate 76 mm/hour (0-20)
[2024-11-12 23:35] VITALS: BP 141/90
[2024-11-13] MEDS: NSS 1000 IV (00:50)
[2024-11-13] MEDS: SPIRIVA RESPIMAT 2.5 MCG 2 PUFF INH (07:25)
[2024-11-13] MEDS: SYMBICORT 80/4.5 MCG INHALER 2 PUFF INH ×2 (07:25→19:53)
--- NOTE | 2024-11-13 08:04 | W.PN.NEURO.1 ---
Today's Communication / Plan
-
Would continue to gradually discontinue the patient's exposure to carbidopa/levodopa which was being utilized for restless leg syndrome, decreased to 1 pill/day; further decreases as outpatient
The patient is also on 2 different SSRI medications, would discontinue paroxetine due to risk of agitation with that medication, decreasing by half initially, dose of 10 mg from 20 mg; further decreases as outpatient
Attempt to lower steroids when possible
Provide thiamine
Neuro Assessment/Plan
Assessment
again reveals a left-sided cerebral convexity subdural hematoma of predominantly iso to hypodense nature as compared to isodense to hyperdense, measuring approximately 1.4 cm in width as compared to 1.4 cm previously. Smaller likely late subacute
right-sided subdural hematoma has decreased now measuring no greater than 0.5 cm. There is no new intraparenchymal or intraventricular hemorrhage.
Decreased attenuation is again seen in the periventricular deep white matter bilaterally suggesting chronic senescent and/or small vessel related ischemic changes.
Patient presenting to this hospital with worsening of cognitive function which is being described as variable changing every approximately 12 hours in a patient with prior history of EtOH overexposure and the above demonstrated acute/subacute
subdural hematoma.
Current etiology for the patient's symptomatology does not represent seizure and instead most likely represents pressure wave secondary to subdural hematoma.
Plan
Would continue to gradually discontinue the patient's exposure to carbidopa/levodopa which was being utilized for restless leg syndrome, decreased to 1 pill/day; further decreases as outpatient
The patient is also on 2 different SSRI medications, would discontinue paroxetine due to risk of agitation with that medication, decreasing by half initially, dose of 10 mg from 20 mg; further decreases as outpatient
Attempt to lower steroids when possible
Provide thiamine
Will follow peripherally
Subjective/Objective
Subjective Data
Date of Service: November 13, 2024
Objective Data
Vital Signs
Temp Pulse Resp BP Pulse Ox
37.2 C 97 16 141/90 94
02/03/25 23:35 11/13/24 07:28 11/13/24 07:28 11/12/24 23:35 11/13/24 07:28
Lab Results
11/11/24 14:43
Sodium 131 mmol/L (135-145) L 11/12/24 06:11
Potassium 4.3 mmol/L (3.5-5.1) 11/12/24 06:11
BUN 13 mg/dl (9-20) 11/12/24 06:11
Glucose 113 mg/dl (70-99) H 11/12/24 06:11
Calcium 9.2 mg/dl (8.4-10.2) 11/12/24 06:11
Vitamin B12 693 pg/ml (239-931) 11/12/24 06:11
Patient Allergies
mold Allergy (Verified 11/11/24 14:33)
sinus congestion
Data Reviewed
-
Labs: Report Reviewed
Old Records: Summarized
Past History
Past History
ED Past Medical History: Arrthythmia (WPW), COPD, CVA, GERD, HTN, Hypercholesterolemia, Psychiatric (MDD), Other (PNA, RLS, Colonic polyposis, Osteoporosis, SDH 09/2024 non-surgical) and Other (osteoarthritis, chronic low back pain/narcotic
dependent)
ED Past Surgical History: Cardiac (Ablation for WPW), Orthopedic (vertebroplasty 2023, L1-2 back surgery 2020), Urological (Prostatectomy) and Other (Hernia repair 2023, Implanted pain management device 06/2017, MANOHAR Rodriguez 05/07/24)
Social History
Tobacco: Smoker (1/2ppd)
Alcohol: Daily (Wine)
Personal:
Living: with family
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
Family History
Family History: Other (reviewed and non-contributory)
Medications
-
Medications:
Generic Name Dose Route Start Last Admin
Trade Name Freq PRN Reason Stop Dose Admin
Acetaminophen 650 mg 11/11/24 23:52
Acetaminophen 325 Mg Tablet PO 12/09/24 23:51
Q4HPRN PRN
mild pain/PACHECO/temp> 100.4F
Albuterol/Ipratropium 3 ml 11/11/24 23:52
Ipratropium 0.5/Albuterol 3 Mg (3 Ml Ampul) INH
R Q4HPRN PRN
sob/wheezing
Protocol
Atorvastatin Calcium 10 mg 11/12/24 18:00 11/12/24 17:31
Atorvastatin (Lipitor) 10 Mg Tablet PO 12/10/24 17:59 10 mg
QPM CHERYL Administration
Azithromycin 250 mg 11/12/24 08:00 11/12/24 07:54
Azithromycin 250 Mg Tablet PO 250 mg
DAILY CHERYL Administration
Bisacodyl 10 mg 11/11/24 23:52
Bisacodyl 10 Mg Rectal Suppository RECTAL 12/09/24 23:51
[id number] PRN
constipation
Budesonide/Formoterol Fumarate 2 puff 11/12/24 08:00 11/13/24 07:25
Symbicort Inhaler 80/4.5 INH 12/10/24 07:59 2 puff
R BID CHERYL Administration
Carbidopa/Levodopa 1 tablet 11/12/24 22:00 11/12/24 21:04
Carbidopa (25 Mg) Levodopa (100 Mg) Extended Release Tablet PO 12/10/24 21:59 1 tablet
HS CHERYL Administration
Duloxetine HCl 30 mg 11/12/24 08:00 11/12/24 21:04
Duloxetine Delayed Release 30 Mg Capsule PO 12/10/24 07:59 30 mg
BID CHERYL Administration
Lisinopril 10 mg 11/12/24 08:00 11/12/24 07:55
Lisinopril 10 Mg Tablet PO 12/10/24 07:59 10 mg
DAILY CHERYL Administration
Pantoprazole Sodium 40 mg 11/12/24 08:00 11/12/24 07:54
Pantoprazole 40 Mg Delayed Release Tablet PO 12/10/24 07:59 40 mg
DAILY CHERYL Administration
Paroxetine HCl 10 mg 11/12/24 13:29
Paroxetine 10 Mg Tablet PO 12/10/24 07:59
DAILY CHERYL
Polyethylene Glycol 17 grams 11/11/24 23:52
Polyethylene Glycol Powder 17 Grams Packet PO 12/09/24 23:51
DAILYPRN PRN
constipation
Prednisone 30 mg 11/13/24 08:00
Prednisone 10 Mg Tablet PO 12/11/24 07:59
DAILY CHERYL
Senna/Docusate Sodium 1 tablet 11/11/24 23:52
Docusate W/Senna (Hilda-Colace) Tablet PO 12/09/24 23:51
BIDPRN PRN
constipation
Sodium Chloride 0 flush 11/11/24 22:00
Sodium Chloride 0.9% (Flush) Syringe IV 12/09/24 21:59
PER PROTOCOL CHERYL
Thiamine HCl 100 mg 11/12/24 15:00 11/12/24 14:26
Thiamine 100 Mg Tablet PO 11/14/24 08:01 100 mg
DAILY CHERYL Administration
Tiotropium [place] 2 puff 11/12/24 08:00 11/13/24 07:25
Tiotropium (Spiriva Respimat) 2.5 Mcg Inhaler INH 12/10/24 07:59 2 puff
R DAILY CHERYL Administration
[2024-11-13 08:06] LABS: Blood Urea Nitrogen 16 mg/dl (9-20); Calcium 8.4 mg/dl (8.4-10.2); Carbon Dioxide 21 mmol/L (22-30); Chloride 102 mmol/L (98-107); Estimated Creatinine Clearance 66 ml/min; Glucose 94 mg/dl (70-99); Potassium 3.7 mmol/L (3.5-5.1); Sodium 132 mmol/L (135-145); eGFR > 60.00
[2024-11-13] MEDS: VITAMIN B1 100 MG PO (08:54)
[2024-11-13] MEDS: PAXIL 10 MG PO (08:54)
[2024-11-13] MEDS: CYMBALTA DELAYED RELEASE 30 MG PO ×2 (08:54→20:37)
[2024-11-13] MEDS: ZITHROMAX 250 MG PO (08:54)
[2024-11-13] MEDS: PROTONIX 40 MG PO (08:55)
[2024-11-13] MEDS: ZESTRIL 10 MG PO (08:55)
[2024-11-13] MEDS: DELTASONE 30 MG PO (08:55)
--- NOTE | 2024-11-13 10:57 | W.PN.HOSP.TC ---
Today's Communication/Plan
-
Discharge planning
Assessment / Plan
Assessment / Plan
Gen-awake, alert, NAD, not oriented
HEENT-NC, AT, anicteric, clear oral mm
Neck-supple
CV-reg, no M, +S1/S2
Lungs-mild expiratory wheezing
Abd-soft, NT, ND
Ext-no edema
Musculoskeletal-no cyanosis, clubbing
Skin-warm and dry
Neuro-grossly non-focal
Psych-calm, cooperative
Acute TME -neurology states it is due to pressure wave phenomenon due to subdural hematomas.
Bilateral subdural hematoma -treated in [facility], Dr. Mon. I did inform him of the patient's admission. Antiplatelet therapy is on hold.
Essential hypertension -with hypertensive urgency. Continue home meds. Urgency resolved.
Chronic hyponatremia -sodium stable at 131. 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 Mild fluid restriction.
CAD -stable.
Abdominal aortic aneurysm -underwent repair in April [address] Rodriguez. Was on aspirin and Plavix since then but discontinued last week due to subdural hematoma.
Mild acute COPD exacerbation -continue inhalers, steroids. CT chest and chest x-ray without obvious pneumonia. Stop ceftriaxone. Continue chronic azithromycin. Add incentive spirometer, Acapella. Out of bed to chair.
Restless leg syndrome -neurology is tapering off carbidopa/levodopa.
Chronic pain syndrome/chronic opiate dependence -due to low back pain. cannot rule out patient accidentally taking excessive opiates prior to admission.
Full code
PT/OT -SNF recommended.
Dispo -stable for discharge to SNF. Case management aware.
updated at the bedside.
Anticipated Discharge: Within 24 hours
Subjective/Interval History
-
Date of Service: November 13, 2024
Patient seen and examined. No complaints.
Objective Data
-
Labs:
Laboratory Results
11/13/24
06:57
Sodium 132 L
Potassium 3.7
Chloride 102
Carbon Dioxide 21 L
BUN 16
Creatinine 0.7
Glucose 94
Calcium 8.4
Vital Signs:
Vital Signs
Temp Pulse Resp BP Pulse Ox
98.9 F 97 16 141/90 94
11/12/24 23:35 11/13/24 08:55 11/13/24 07:28 11/13/24 08:55 11/13/24 07:28
I&O
11/12/24 11/13/24 11/14/24
06:59 06:59 06:59
Intake Total 0 / 0
Balance 2280 / 2280
Review of Systems
-
History Source: Patient and Family
All other systems: Reviewed and negative
[2024-11-13 15:07] VITALS: BP 124/86
[2024-11-13] MEDS: LIPITOR 10 MG PO (18:03)
[2024-11-13] MEDS: SINEMET CR 25-100 (EXTENDED RELEASE) 1 TABLET PO (20:37)
[2024-11-13 23:05] VITALS: BP 146/95
--- NOTE | 2024-11-14 03:35 | PTCARENOTE ---
Pt assessed as per flow sheet. No s/s of distress assessed thus far. Will continue to monitor.
[2024-11-14] MEDS: SPIRIVA RESPIMAT 2.5 MCG 2 PUFF INH (07:24)
[2024-11-14] MEDS: SYMBICORT 80/4.5 MCG INHALER 2 PUFF INH ×2 (07:24→19:47)
[2024-11-14 07:42] VITALS: BP 151/103
[2024-11-14 07:55] LABS: Blood Urea Nitrogen 15 mg/dl (9-20); Carbon Dioxide 24 mmol/L (22-30); Chloride 97 mmol/L (98-107); Estimated Creatinine Clearance 58 ml/min; Glucose 90 mg/dl (70-99); Potassium 3.6 mmol/L (3.5-5.1); Sodium 130 mmol/L (135-145); eGFR > 60.00
[2024-11-14] MEDS: DELTASONE 30 MG PO (08:26)
[2024-11-14] MEDS: CYMBALTA DELAYED RELEASE 30 MG PO ×2 (08:26→20:42)
[2024-11-14] MEDS: ZESTRIL 10 MG PO (08:26)
[2024-11-14] MEDS: VITAMIN B1 100 MG PO (08:26)
[2024-11-14] MEDS: PROTONIX 40 MG PO (08:27)
[2024-11-14] MEDS: ZITHROMAX 250 MG PO (08:29)
[2024-11-14] MEDS: PAXIL 10 MG PO (08:29)
--- NOTE | 2024-11-14 10:59 | W.PN.HOSP.TC ---
Addendum entered and electronically signed by Calvin Tabares DO 11/14/24 12:13:
Acute metabolic encephalopathy
Original Note:
Today's Communication/Plan
-
Discharge planning
Assessment / Plan
Assessment / Plan
Gen-awake, alert, NAD, not oriented
HEENT-NC, AT, anicteric, clear oral mm
Neck-supple
CV-reg, no M, +S1/S2
Lungs-wheezing improved.
Abd-soft, NT, ND
Ext-no edema
Musculoskeletal-no cyanosis, clubbing
Skin-warm and dry
Neuro-grossly non-focal
Psych-calm, cooperative
Acute TME -neurology states it is due to pressure wave phenomenon due to subdural hematomas.
Bilateral subdural hematoma -treated in [facility], Dr. Mon. I did inform him of the patient's admission. Antiplatelet therapy is on hold. Recommend follow-up as an outpatient.
Essential hypertension -with hypertensive urgency. Continue home meds. Urgency resolved.
Chronic hyponatremia -sodium stable at 131. 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 Mild fluid restriction.
CAD -stable.
Abdominal aortic aneurysm -underwent repair in April [address] Rodriguez. Was on aspirin and Plavix since then but discontinued last week due to subdural hematoma.
Mild acute COPD exacerbation -continue inhalers, steroids. CT chest and chest x-ray without obvious pneumonia. Procalcitonin normal. Stopped ceftriaxone. Continue chronic azithromycin. Add incentive spirometer, Acapella. Out of bed to chair.
Will do a 5-day total of prednisone.
Restless leg syndrome -neurology is tapering off carbidopa/levodopa.
Chronic pain syndrome/chronic opiate dependence -due to low back pain. cannot rule out patient accidentally taking excessive opiates prior to admission.
Full code
PT/OT -SNF recommended.
Dispo -stable for discharge to SNF. Case management aware.
updated at the bedside.
Anticipated Discharge: Within 24 hours
Subjective/Interval History
-
Date of Service: November 14, 2024
Patient seen and examined. No complaints.
Objective Data
-
Labs:
Laboratory Results
11/14/24
06:58
Sodium 130 L
Potassium 3.6
Chloride 97 L
Carbon Dioxide 24
BUN 15
Creatinine 0.8
Glucose 90
Calcium 9.0
Vital Signs:
Vital Signs
Temp Pulse Resp BP Pulse Ox
97.6 F 96 16 151/103 95
11/14/24 07:42 11/14/24 07:42 11/14/24 07:42 11/14/24 07:42 11/14/24 07:42
I&O
11/13/24 11/14/24 11/15/24
06:59 06:59 06:59
Intake Total 2280 / 2280 540 / 540
Balance 2280 / 2280 540 / 540
Review of Systems
-
Unable to obtain full review of systems at this time due to: Acuity
History Source: Patient
All other systems: Reviewed and negative
--- NOTE | 2024-11-14 11:39 | PN.CDI ---
CDI
- -
CDI:
Physician Documentation Request
Admit Date: 11/11/24 22:16
Dear Doctor Raysa,
Patient admitted with altered mental status.
11/14 Hospitalist PN: 'Acute TME -neurology states it is due to pressure wave phenomenon due to subdural hematomas.'
Based on the above, could you clarify in the Progress Notes and Discharge Summary which, if any of the following, is the most likely etiology of the confusion/altered mental status.
Metabolic encephalopathy
Toxic metabolic encephalopathy
Other
Use of terms such as suspected, likely, concern for, or probable (associated with a specific diagnosis that is being evaluated, monitored, or treated as if it exists) are acceptable and can be coded in the inpatient setting, when documented at the
time of discharge.
Thank you,
Milly Marshall RN, BSN
CDI Specialist
Available via [facility] text
Please use your independent medical judgment in providing your response.
--- NOTE | 2024-11-14 13:19 | CM ---
Addendum entered by EDIN Sanderson 11/14/24 16:27:
Spoke with Analy in admissions at [facility] who stated that she does not have a bed however they do have a bed at [facility]. Will discuss with family.
Original Note:
Spoke with attending who stated that patient is medically stable for discharge. Met with patient, his , and son, David, who were all at bedside. Patient's stated that up until a few days ago, patient lives with her in a single two story
home with a first floor set up. He was able to function at an independent/supervision level for all ADLs, personal care, dressing and bathing. 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 Either she or her son transports
patient to his appointments and does all of the shopping.
He has a walker but was not using it. He also has a transport chair.
Patient did have VN in the past, through .
Patient's family would like for patient to transfer to [facility].
Patient has a prescription plan and his provider is Fac[facility] Carreon.
Placed a call to Analy in admissions at [facility] and she stated that she will determine when a bed will be available and will return call back to . Will make referral through [employer].
Plan: Case management will continue to follow and assist with discharge planning. Family hopeful for [place].
[2024-11-14 14:23] VITALS: BP 149/98
[2024-11-14] MEDS: LIPITOR 10 MG PO (17:04)
[2024-11-14] MEDS: SINEMET CR 25-100 (EXTENDED RELEASE) 1 TABLET PO (20:30)
[2024-11-14 23:46] VITALS: BP 153/96
[2024-11-15 07:39] VITALS: BP 132/98
[2024-11-15] MEDS: SYMBICORT 80/4.5 MCG INHALER 2 PUFF INH ×2 (08:17→21:16)
[2024-11-15] MEDS: SPIRIVA RESPIMAT 2.5 MCG 2 PUFF INH (08:17)
[2024-11-15] MEDS: PROTONIX 40 MG PO (09:23)
[2024-11-15] MEDS: ZESTRIL 10 MG PO (09:23)
[2024-11-15] MEDS: CYMBALTA DELAYED RELEASE 30 MG PO ×2 (09:23→22:28)
[2024-11-15] MEDS: DELTASONE 30 MG PO (09:24)
[2024-11-15] MEDS: ZITHROMAX 250 MG PO (09:24)
[2024-11-15] MEDS: PAXIL 10 MG PO (09:24)
[2024-11-15 11:10] VITALS: BP 158/102; PULSE 96; O2SAT 96
--- NOTE | 2024-11-15 11:55 | W.PN.HOSP.TC ---
Today's Communication/Plan
-
discharge planning
Assessment / Plan
Assessment / Plan
Gen-awake, alert, NAD, not completely oriented
HEENT-NC, AT, anicteric, clear oral mm
Neck-supple
CV-reg, no M, +S1/S2
Lungs-wheezing improved.
Abd-soft, NT, ND
Ext-no edema
Musculoskeletal-no cyanosis, clubbing
Skin-warm and dry
Neuro-grossly non-focal
Psych-calm, cooperative
Acute TME -neurology states it is due to pressure wave phenomenon due to subdural hematomas. Mental status seems stable and likely at new baseline.
Bilateral subdural hematoma -treated in [facility], Dr. Mon. I did inform him of the patient's admission. Antiplatelet therapy is on hold. Recommend follow-up as an outpatient.
Essential hypertension -with hypertensive urgency. Continue home meds. Urgency resolved.
Chronic hyponatremia -sodium stable. 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 Mild fluid restriction.
CAD -stable.
Abdominal aortic aneurysm -underwent repair in April [address] Rodriguez. Was on aspirin and Plavix since then but discontinued last week due to subdural hematoma.
Mild acute COPD exacerbation -continue inhalers, steroids. CT chest and chest x-ray without obvious pneumonia. Procalcitonin normal. Stopped ceftriaxone. Continue chronic azithromycin. Add incentive spirometer, Acapella. Out of bed to chair.
Day 5/5 of prednisone.
Restless leg syndrome -neurology is tapering off carbidopa/levodopa.
Chronic pain syndrome/chronic opiate dependence -due to low back pain. cannot rule out patient accidentally taking excessive opiates prior to admission.
Full code
PT/OT -SNF recommended.
Dispo -stable for discharge to SNF. Case management aware.
Anticipated Discharge: Within 24 hours
Subjective/Interval History
-
Date of Service: November 15, 2024
Patient seen/examined, no complaints. Oriented to hospital.
Objective Data
-
Vital Signs:
Vital Signs
Temp Pulse Resp BP Pulse Ox
97.9 F 98 16 132/98 97
11/15/24 07:39 11/15/24 09:23 11/15/24 08:21 11/15/24 09:23 11/15/24 08:21
I&O
11/14/24 11/15/24 11/16/24
06:59 06:59 06:59
Intake Total 540 / 540 600 / 600
Balance 540 / 540 600 / 600
Review of Systems
-
History Source: Patient
All other systems: Reviewed and negative
[2024-11-15 12:16] VITALS: BP 158/102; PULSE 95; O2SAT 96
[2024-11-15 15:17] VITALS: BP 132/88
--- NOTE | 2024-11-15 16:19 | CM ---
Addendum entered by EDIN Sanderson 11/15/24 17:29:
Received authorization from Yesenia Martinez X who issued auth# [id number] Skilled level 1 5 days, 11/16-11/20 NRD 11/20
This information was relayed to Analy admissions at [facility] who confirmed acceptance for tomorrow. Report [phone] fax#[phone].
Original Note:
Spoke with Analy in admissions at [facility], who stated that there is no bed availability but they can accept him at [facility] and then transition him upon a bed opening at [place].
Placed a call to Patient's , Shirley, who is agreeable to that plan.
Will attempt authorization: Facility [id number] Dr. Alfredo Osullivan [phone]
Plan: Case management will continue to follow and assist with discharge planning. when auth obtained.
[2024-11-15] MEDS: LIPITOR 10 MG PO (17:43)
[2024-11-15] MEDS: SINEMET CR 25-100 (EXTENDED RELEASE) 1 TABLET PO (22:28)
[2024-11-16 00:22] VITALS: BP 151/94
[2024-11-16 07:34] VITALS: BP 151/94
[2024-11-16] MEDS: SPIRIVA RESPIMAT 2.5 MCG 2 PUFF INH (07:48)
[2024-11-16] MEDS: SYMBICORT 80/4.5 MCG INHALER 2 PUFF INH (07:49)
[2024-11-16] MEDS: PROTONIX 40 MG PO (08:50)
[2024-11-16] MEDS: ZESTRIL 10 MG PO (08:50)
[2024-11-16] MEDS: ZITHROMAX 250 MG PO (08:53)
[2024-11-16] MEDS: CYMBALTA DELAYED RELEASE 30 MG PO (08:53)
[2024-11-16] MEDS: PAXIL 10 MG PO (08:53)
--- NOTE | 2024-11-16 11:42 | CM ---
Patient for d/c to [facility] via ambulance transport.
IMM completed.
Ambulance transport forms on chart.
Plan: [facility] Today
[facility]
Report [phone]
fax#[phone].
--- NOTE | 2024-11-16 11:48 | W.PN.HOSP.TC ---
Today's Communication/Plan
-
Discharge
Assessment / Plan
Assessment / Plan
Gen-awake, alert, NAD, not completely oriented
HEENT-NC, AT, anicteric, clear oral mm
Neck-supple
CV-reg, no M, +S1/S2
Lungs-wheezing improved.
Abd-soft, NT, ND
Ext-no edema
Musculoskeletal-no cyanosis, clubbing
Skin-warm and dry
Neuro-grossly non-focal
Psych-calm, cooperative
Acute TME -neurology states it is due to pressure wave phenomenon due to subdural hematomas. Mental status seems stable and likely at new baseline.
Bilateral subdural hematoma -treated in [facility], Dr. Mon. I did inform him of the patient's admission. Antiplatelet therapy is on hold. Recommend follow-up as an outpatient.
Essential hypertension -with hypertensive urgency. Continue home meds. Urgency resolved.
Chronic hyponatremia -sodium stable. 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 Mild fluid restriction.
CAD -stable.
Abdominal aortic aneurysm -underwent repair in April [address] Rodriguez. Was on aspirin and Plavix since then but discontinued last week due to subdural hematoma.
Mild acute COPD exacerbation -continue inhalers, steroids. CT chest and chest x-ray without obvious pneumonia. Procalcitonin normal. Stopped ceftriaxone. Continue chronic azithromycin. Add incentive spirometer, Acapella. Out of bed to chair.
Completed 5 days of prednisone.
Restless leg syndrome -neurology is tapering off carbidopa/levodopa.
Chronic pain syndrome/chronic opiate dependence -due to low back pain. cannot rule out patient accidentally taking excessive opiates prior to admission.
Full code
PT/OT -SNF recommended.
Dispo -stable for discharge to SNF. Case management aware.
35 minutes spent in discharge process.
Anticipated Discharge: Today
Subjective/Interval History
-
Date of Service: November 16, 2024
Patient seen and examined. Complaining of mild sore throat.
Objective Data
-
Vital Signs:
Vital Signs
Temp Pulse Resp BP Pulse Ox
97.9 F 92 20 151/94 99
11/16/24 07:34 11/16/24 07:53 11/16/24 07:53 11/16/24 07:34 11/16/24 07:53
I&O
11/15/24 11/16/24 11/17/24
06:59 06:59 06:59
Intake Total 600 / 600 480 / 480
Balance 600 / 600 480 / 480
Review of Systems
-
History Source: Patient
All other systems: Reviewed and negative
--- NOTE | 2024-11-16 11:49 | W.DS.TRANS ---
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
-
Discharge Instructions:
Discharge Diagnosis/Procedures Recent subdural hematomas, hypertensive urgency,
hyponatremia, COPD exacerbation
Diet Low Cholesterol,Low Fat,Restrict fluids to 48 oz
,2 Gram Sodium
Activity With assistance
Driving Restrictions No driving
Bathing Restrictions None
Instructions:
Stand-Alone Forms:
Changes to Home Medications: No
Discharge Medications:
DC Medications w/original date entered in [employer]
atorvastatin 10 mg tablet 10 mg PO QPM High cholesterol 12/03/20
lisinopril 10 mg tablet 10 mg PO DAILY Blood pressure 12/03/20
omeprazole 20 mg capsule,delayed release 20 mg PO DAILY Gastrointestinal issue 12/03/20
duloxetine 30 mg capsule,delayed release 30 mg PO BID RLS 05/07/24
guaifenesin 600 mg tablet, extended release 12 hr (Mucinex) 600 mg PO DAILY cough/mucous 05/07/24
fluticasone fur. 100 mcg-umeclid 62.5 mcg-vilant 25 mcg inhalat.powder (Trelegy Ellipta) 1 inh inhalation DAILY Lung/Breathing Issues 05/10/24
multivitamin 1 tab PO DAILY Supplement 05/10/24
levalbuterol HCl 1.25 mg/0.5 mL solution for nebulization 1.25 mg inhalation DAILY Lung/Breathing Issues 07/20/24
albuterol 90 mcg/actuation aerosol inhaler 90 mcg inhalation PRN PRN sob 11/11/24
azithromycin 250 mg tablet 250 mg PO DAILY prophylaxis 11/11/24
carbidopa ER 25 mg-levodopa 100 mg tablet,extended release 1 tab PO HS #0 tabs 11/15/24
paroxetine HCl 10 mg tablet 10 mg PO DAILY #0 tabs 11/15/24
polyethylene glycol 3350 17 gram oral powder packet 17 g PO DAILYPRN PRN constipation #0 ea 11/15/24
Home Medication Changes
Pending Results: No
[2024-11-16 13:00] VITALS: BP 130/80
[2024-11-16 13:23] VITALS: BMI 21.0
--- NOTE | 2024-11-16 15:14 | PTCARENOTE ---
patient denies pain, tolerating diet, turns with assist x1-2, vss, for discharge to [facility] today.
== END 2024-11-16 13:31 | DRG 85 ==
LOC: 3 WEST ACU 22:16
PROVIDERS: Emergency Medicine; Nurse Practitioner; Registered Nurse; ADMITTING PHYSICIAN Internal Medicine; ATTENDING PHYSICIAN Hospitalist; CONSULT PHYSICIAN Psychiatry & Neurology Neurology; EMERGENCY PHYSICIAN Student in an Organized Health Care Education/Training Program; FAMILY PHYSICIAN Family Medicine
DX: S06.5X0A Traumatic subdural hemorrhage without loss of consciousness, initial encounter (principal); G93.41 Metabolic encephalopathy; E22.2 Syndrome of inappropriate secretion of antidiuretic hormone; J44.1 Chronic obstructive pulmonary disease with (acute) exacerbation; F11.20 Opioid dependence, uncomplicated; E78.00 Pure hypercholesterolemia, unspecified; I10 Essential (primary) hypertension; I45.6 Pre-excitation syndrome; F17.210 Nicotine dependence, cigarettes, uncomplicated; G89.29 Other chronic pain; K21.9 Gastro-esophageal reflux disease without esophagitis; G25.81 Restless legs syndrome; D63.8 Anemia in other chronic diseases classified elsewhere; E86.0 Dehydration; I71.21 Aneurysm of the ascending aorta, without rupture; I25.10 Atherosclerotic heart disease of native coronary artery without angina pectoris; I16.0 Hypertensive urgency; M81.0 Age-related osteoporosis without current pathological fracture; W19.XXXA Unspecified fall, initial encounter; Z86.73 Personal history of transient ischemic attack (TIA), and cerebral infarction without residual deficits; Z79.899 Other long term (current) drug therapy; Z79.82 Long term (current) use of aspirin; Z79.02 Long term (current) use of antithrombotics/antiplatelets; Z86.79 Personal history of other diseases of the circulatory system; Z11.52 Encounter for screening for COVID-19
CPT/HCPCS: 70450; 71046; 71275; 80048; 80053; 81003; 81015; 82607; 82728; 82746; 84145; 84443; 84484; 85025; 85652; 87502; 87811; 93005; 94640; 96360; 97116; 97163; 97167; 97530; 97535; 99285; Q9967

== ENCOUNTER → 2024-12-25 14:24 | Outpatient (REF) | payer OTHER, SELFPAY | LOC: RAD 14:24 | PROVIDERS: ATTENDING PHYSICIAN Surgery Vascular Surgery; FAMILY PHYSICIAN Family Medicine | DX: I77.9 Disorder of arteries and arterioles, unspecified (principal) | CPT/HCPCS: 93922; 93925 ==

== ENCOUNTER → 2025-01-07 13:56 | Outpatient (REF) | payer OTHER, SELFPAY | LOC: RAD 13:56 | PROVIDERS: ATTENDING PHYSICIAN Surgery Vascular Surgery; FAMILY PHYSICIAN Family Medicine | DX: I71.42 Juxtarenal abdominal aortic aneurysm, without rupture (principal) | CPT/HCPCS: 74174; Q9967 ==

== ENCOUNTER → 2025-02-05 12:48 | Outpatient (REF) | payer OTHER, SELFPAY | LOC: HWRAD 12:48 | PROVIDERS: ATTENDING PHYSICIAN Neurological Surgery; FAMILY PHYSICIAN Family Medicine | DX: S06.5XAA Traumatic subdural hemorrhage with loss of consciousness status unknown, initial encounter (principal) | CPT/HCPCS: 70450 ==

== ENCOUNTER → 2025-03-15 11:11 | Outpatient (REF) | payer OTHER, SELFPAY | LOC: RAD 11:11 | PROVIDERS: ATTENDING PHYSICIAN Psychiatry & Neurology Neurology; FAMILY PHYSICIAN Family Medicine | DX: M54.14 Radiculopathy, thoracic region (principal); I10 Essential (primary) hypertension; M54.16 Radiculopathy, lumbar region | CPT/HCPCS: 72100 ==

== ENCOUNTER → 2025-04-20 08:08 | Outpatient (REF) | payer OTHER, SELFPAY | LOC: MRI 08:08 | PROVIDERS: ATTENDING PHYSICIAN Physician Assistant Surgical; FAMILY PHYSICIAN Family Medicine | DX: M48.50XA Collapsed vertebra, not elsewhere classified, site unspecified, initial encounter for fracture (principal) | CPT/HCPCS: 72148 ==